=== PATIENT | female | born 1935 | race Caucasian/White ===

== ENCOUNTER → 2017-11-01 10:14 | Outpatient (BNVA) | payer MEDICARE, MEDICAID, SELFPAY | PROVIDERS: Visit Provider Student in an Organized Health Care Education/Training Program | DX: M17.12 Unilateral primary osteoarthritis, left knee (principal); M17.11 Unilateral primary osteoarthritis, right knee | CPT/HCPCS: 20610; 99213; J7325 ==

== ENCOUNTER → 2017-12-27 10:24 | Outpatient (BNVA) | payer MEDICARE, MEDICAID, SELFPAY | PROVIDERS: PCP Internal Medicine; Referring Provider Internal Medicine; Visit Provider Student in an Organized Health Care Education/Training Program | DX: M17.12 Unilateral primary osteoarthritis, left knee (principal) | CPT/HCPCS: 20610; 99213; J1040 ==

== ENCOUNTER → 2018-03-30 10:32 | Outpatient (BNVA) | payer MEDICARE, MEDICAID, SELFPAY | PROVIDERS: PCP Internal Medicine; Referring Provider Internal Medicine; Visit Provider Student in an Organized Health Care Education/Training Program | DX: M17.12 Unilateral primary osteoarthritis, left knee (principal); M17.11 Unilateral primary osteoarthritis, right knee | CPT/HCPCS: 99212; 99213 ==

== ENCOUNTER 2018-04-13 21:51 | Outpatient (REF) | payer MEDICARE, MEDICAID, SELFPAY ==
[2018-04-13 22:24] LABS: Bilirubin Negative (Negative); Blood Trace-intact (Negative); Clarity Clear; Glucose Negative (Negative); Ketones Negative (Negative); Leukocyte Esterase Small (Negative); Nitrite Positive (Negative); Urobilinogen 0.2 EU/dL (Up TO 0.2); pH 6.5 (5-8)
[2018-04-13 22:31] LABS: Bacteria Many HPF (Negative); C & S Indicated? C&S Done As Ordered; Casts Negative LPF (Negative); Crystals Negative HPF (Negative); Epithelial Cells Few HPF (Negative); Mucus Negative (Negative); RBC 0-2 (0-2); WBC >50 HPF (0-5)
== END 2018-04-13 22:11 ==
LOC: NCHCN 21:51
PROVIDERS: PCP Internal Medicine; Visit Provider Internal Medicine
DX: N39.0 Urinary tract infection, site not specified (principal)
CPT/HCPCS: 87077; 81003; 81015; 87086; 87186

== ENCOUNTER → 2018-06-25 10:30 | Outpatient (BNVA) | payer MEDICARE, MEDICAID, SELFPAY | PROVIDERS: PCP Internal Medicine; Referring Provider Internal Medicine; Visit Provider Student in an Organized Health Care Education/Training Program | DX: M17.11 Unilateral primary osteoarthritis, right knee (principal); M17.12 Unilateral primary osteoarthritis, left knee | CPT/HCPCS: 20610; 99212; 99213; J1040 ==

== ENCOUNTER 2018-10-23 15:37 | Outpatient (REF) | payer MEDICARE, MEDICAID, SELFPAY ==
[2018-10-23 22:18] LABS: Bilirubin Negative (Negative); Blood Trace-intact (Negative); Clarity Cloudy (Clear); Glucose Negative (Negative); Ketones Negative (Negative); Leukocyte Esterase Large (Negative); Nitrite Positive (Negative); Specific Gravity 1.015 (1.005-1.025); Urobilinogen 0.2 EU/dL (Up TO 0.2); pH 5.5 (5-8)
[2018-10-23 22:53] LABS: Bacteria Many HPF (Negative); Epithelial Cells Few HPF (Negative); Other Cells Negative (Negative); WBC >50 HPF (0-5)
[2018-10-23 22:54] LABS: C & S Indicated? Yes; Casts Negative LPF (Negative); Crystals Negative HPF (Negative); Mucus Negative (Negative)
== END 2018-10-23 15:57 ==
LOC: NCHCN 15:37
PROVIDERS: PCP Internal Medicine; Visit Provider Internal Medicine
DX: N39.0 Urinary tract infection, site not specified (principal)
CPT/HCPCS: 87077; 81003; 81015; 87086; 87186

== ENCOUNTER → 2018-11-29 11:17 | Outpatient (BNVA) | payer MEDICARE, MEDICAID, SELFPAY | PROVIDERS: PCP Internal Medicine; Referring Provider Internal Medicine; Visit Provider Student in an Organized Health Care Education/Training Program | DX: M17.11 Unilateral primary osteoarthritis, right knee (principal); M17.12 Unilateral primary osteoarthritis, left knee | CPT/HCPCS: 20610; 99213; J1040 ==

== ENCOUNTER 2019-02-26 09:16 | Emergency (ER) | payer MEDICARE, MEDICAID, SELFPAY ==
[2019-02-26] VITALS (42 sets, daily range): BP systolic 100–161; BP diastolic 48–142; PULSE 71–96; RESP 8–39; TEMP 37.7; O2SAT 89–98
--- NOTE | 2019-02-26 09:25 | ED.GENADUL_ITS ---
Discharge Plan Disposition Patient Disposition: HOME Condition: Improving Discharge Details Chief Complaint: SOB Clinical Impression: Acute bronchitis with bronchospasm Primary Care Provider: Aman Granado ED Provider: Michael Triplett Home Meds and New Rx's Prescriptions: New prednisone 20 mg tablet 40 mg PO DAILY 5 Days Qty: 10 RF: 0 amoxicillin-pot clavulanate 875-125 mg tablet 1 tab PO BID 10 Days Qty: 20 RF: 0 Continued ascorbic acid (vitamin C) [Vitamin C] 500 MG capsule, extended release 500 mg PO DAILY RF: 0 cranberry fruit 500 MG tablet,chewable 500 mg PO DAILY RF: 0 (DME) disposable gloves [Vinyl Gloves] 1 EACH misc 1 ea Topical PRN RF: 0 (DME) Aerochamber MV 1 EACH spacer 1 ea Miscellaneous DIRECTED RF: 0 torsemide 100 MG tablet 100 mg PO DAILY RF: 0 atorvastatin [Lipitor] 20 MG tablet 20 mg pe PO HS RF: 0 nitroglycerin [Nitrostat] 0.4 MG tablet, sublingual 1 tab Sublingual Q5MX3 PRNRF: 0 albuterol sulfate [Proventil HFA] 1 PUFF HFA aerosol inhaler 2 puff Inhalation Q4H PRNRF: 0 vitamin E 400 UNIT capsule 400 unit PO DAILY RF: 0 potassium chloride [Klor-Con M10] 10 MEQ tablet,ER particles/crystals 10 meq PO DAILY RF: 0 Eliquis 5 MG tablet 1 tab PO BID RF: 0 diltiazem HCl 120 MG capsule,extended release 24hr 120 mg PO DAILY Qty: 30 RF: 0 nystatin 15 GM cream 1 applic Topical BID RF: 0 Incruse Ellipta 1 PUFF blister with device 1 puff Inhalation DAILY RF: 0 acetaminophen [Tylenol] 325 MG tablet 650 mg PO BID PRNRF: 0 metoprolol succinate 50 MG tablet extended release 24 hr 75 mg PO DAILY RF: 0 albuterol sulfate 2.5 mg /3 mL (0.083 %) Solution For Nebulization .Q6 HOURS PRNRF: 0 Advair HFA 115-21 mcg/actuation Hfa Aerosol Inhaler 2 puff INHALATION BID RF: 0 Discharge Instructions Instructions: Acute Bronchitis (ED) Additional Instructions: Continue your regular medications. Take antibiotics as prescribed. Follow-up with regular doctor if not improving in 3 to 5 days time. Return to the emergency department for any acute concerns. Home to rest this afternoon. Medical Decision Making 83-year-old female presents from home. She lives alone in [place]. She has a number of chronic medical problems including oxygen dependent COPD, CHF, atrial fibrillation for which she is anticoagulated. She notes 3 days of cough, congestion, some production of green sputum with associated shortness of breath. No significant weight gain. She denies to me any chest pain. She has a temp of 37.7, pulse 88, blood pressure 136/103 initially. 96% sat on 3 L oxygen. Her lung sounds are quite diminished bilaterally. She describes an infectious process. Her differential diagnosis includes COPD exacerbation, influenza, bronchitis, pneumonia, must exclude CHF exacerbation. Patient had IV access established, given DuoNeb updraft, parenteral steroid, referred for EKG, laboratory testing, chest x-ray. Her CBC is reassuring, chemistries the BUN 25, creatinine 0.9, unremarkable electrolytes. Troponin is negative. BNP 2882, the patient's baseline is in the mid thousands, her range is from low 100s to greater than 10,000. Influenza negative. Chest x-ray: Lungs are predominantly clear with slight interstitial prominence, probably chronic. No pleural effusion seen. No focal consolidation. Following inhaled DuoNeb, parenteral steroids, patient weaned to normal levels of oxygen with saturations in the mid 90s. She ate a lunchtime meal. Repeat troponin was obtained and negative. Blood pressures improved to 129/48. I will treat her with oral antibiotics and a burst of systemic steroids for bronchitis with bronchospasm. Her caregiver and granddaughter understand homecare as well as indications for repeat evaluation. She is stable and improving. Lab Data Lab results reviewed: Yes I reviewed the patient's lab results. Labs: Laboratory Results - last 24 hr 02/26/19 02/26/19 02/26/19 10:05 10:05 10:05 WBC 8.68 RBC 4.95 Hgb 14.0 Hct 45.5 MCV 91.9 MCH 28.3 MCHC 30.8 L RDW 15.3 H Plt Count 227 MPV 10.7 Immature Gran % 0.6 Neutrophils % 72.4 Lymphocytes % 10.3 Monocytes % 10.4 Eosinophils % 5.4 Basophils % 0.9 Absolute Neutrophils 6.29 Absolute Lymphocytes 0.89 L Absolute Monocytes 0.90 H Absolute Eosinophils 0.47 Absolute Basophils 0.08 PT 11.5 H INR 1.1 Sodium 145 Potassium 4.0 Chloride 105 Carbon Dioxide 33.5 H Anion Gap 6.5 BUN 25 H Creatinine 0.90 Estimated GFR/1.73 m2 59.94 Glucose 140 H Calcium 9.4 Magnesium 2.1 Total Bilirubin 0.5 AST 19 ALT 16 Alkaline Phosphatase 82 Troponin I < 0.05 NT-Pro-B Natriuret Pep 2882 H Total Protein 7.1 Albumin 3.5 ECG Data Attestation: I personally reviewed and interpreted this ECG (s) as follows: Interpretation: Regular rhythm with a rate of 84, there is intraventricular conduction delay and a left bundle branch block pattern, electronically V paced, similar to that from April 12, 2017. HPI General Mode of arrival: EMS . Date/Time Provider Initiated Documentation: 02/26/19 09:25 . Limitations to Documentation: no limitations . Information obtained by: patient and EMS . History of Present Illness 83 year old F presents to the emergency department with the chief complaint of Cough, low-grade fever, congestion, shortness of breath, described as moderate, Quality is described as dull and constant, and is localized to the chest. Patient reports no radiation. Patient started experiencing this day(s) and it has been constant. No relieving factors improve symptom(s), No exacerbating factors reported . Patient notes cough, fever/chills and shortness of breath; denies chest pain, nausea/vomiting and syncope. Patient did receive the following treatments prior to arrival, other (On home oxygen.) Related Data Home Medications Medication Instructions Recorded Confirmed albuterol sulfate [Proventil HFA] 2 puff INHALATION Q4H PRN 12/23/14 02/26/19 atorvastatin [Lipitor] 20 mg pe PO HS 12/23/14 02/26/19 nitroglycerin [Nitrostat] 1 tab SUBLINGUAL Q5MX3 PRN 12/23/14 02/26/19 potassium chloride [Klor-Con M10] 10 meq PO DAILY 12/23/14 02/26/19 vitamin E 400 unit PO DAILY 12/23/14 02/26/19 Eliquis 1 tab PO BID 11/13/15 02/26/19 ascorbic acid (vitamin C) [Vitamin 500 mg PO DAILY 04/04/16 02/26/19 C] cranberry fruit 500 mg PO DAILY tab.chew 04/04/16 02/26/19 Incruse Ellipta 1 puff INHALATION DAILY 05/09/16 02/26/19 acetaminophen [Tylenol] 650 mg PO BID PRN 05/09/16 02/26/19 nystatin 1 applic TOPICAL BID 05/09/16 02/26/19 Aerochamber MV 05/11/16 11/29/18 disposable gloves [Vinyl Gloves] ea 05/11/16 11/29/18 diltiazem HCl 120 mg PO DAILY #30 capcr 03/26/17 02/26/19 metoprolol succinate 75 mg PO DAILY 04/12/17 02/26/19 torsemide 100 mg PO DAILY tab-cap 05/01/17 02/26/19 Advair HFA 2 puff INHALATION BID 02/26/19 02/26/19 albuterol sulfate .Q6 HOURS PRN 02/26/19 amoxicillin-pot clavulanate 1 tab PO BID 10 Days #20 tab 02/26/19 prednisone 40 mg PO DAILY 5 Days #10 tab 02/26/19 Previous Rx's Medication Instructions Recorded diltiazem HCl 120 mg PO DAILY #30 capcr 03/26/17 amoxicillin-pot clavulanate 1 tab PO BID 10 Days #20 tab 02/26/19 prednisone 40 mg PO DAILY 5 Days #10 tab 02/26/19 Allergies Allergy/AdvReac Type Severity Reaction Status Date / Time aspirin AdvReac Mild Unverified 02/26/19 09:25 erythromycin base AdvReac Mild Unverified 02/26/19 09:25 lisinopril AdvReac Mild Unverified 02/26/19 09:25 Review of Systems Narrative: Patient lives alone. She is on home oxygen of 2 L. She denies any significant new edema. No known sick contacts. Eating and drinking okay. 8 systems reviewed and otherwise negative [facility] Medical History (Updated 02/26/19 @ 09:35 by Michael Triplett MD) Atrial fibrillation (Acute) CHF (congestive heart failure) (Chronic) COPD (chronic obstructive pulmonary disease) (Chronic) Social History Smoking/Tobacco Use Status: Former Tobacco Use Drug use: Never Do you feel safe in your relationship?: Yes History History Para 2 Hx # Term Pregnancies Multiple births Hx # Pregnancies Ectopic pregnancies AB induced Hx Number of Living Children AB spontaneous Exam Narrative Exam Narrative: GEN: awake, alert, oriented 3. Pleasant, well groomed, interactive. HEAD: Normocephalic, atraumatic ENT: Mucous membranes moist, oropharynx unremarkable, External ear exam unremarkable EYES: PERRL, EOMI NECK: Full ROM, no AMANDA, no menigismus CHEST/RESP: Nontender, diminished and distant breath sounds bilaterally, question faint wheeze CARDIOVASCULAR: Distant heart sounds, regular at the time of my exam, no murmur, rub roel. 2+ Rad pulse bilateral ABDOMEN: Soft, nontender, no mass. +Bowel sounds EXT: Full ROM, minimal to trace pretibial edema, no rash Neuro: Grossly normal neurologic exam, conversant, interactive. Psych: Speech fluent, thoughts congruent, affect normal
[2019-02-26] MEDS: Albuterol/Ipratropium 3 ML UPD VIAL UPD (09:48)
[2019-02-26] MEDS: methylPREDNISolone SUCC 125 MG VIAL IVP (09:49)
[2019-02-26] MEDS: Normal Saline Flush 10 ML SYR IVP (09:49)
[2019-02-26 10:12] LABS: Abs Immature Grans 0.05 k/cumm (0.0-0.09); Absolute Basophil Count 0.08 k/cumm (0.0-0.2); Absolute Eosinophil Count 0.47 k/cumm (0.0-0.7); Absolute Lymphocyte Count 0.89 k/cumm (1.2-3.4); Absolute Neutrophil Count 6.29 k/cumm (1.2-6.7); Basophils % 0.9; Eosinophils % 5.4; HCT 45.5 % (36.0-46.0); Immature Grans % 0.6 %; Lymphocytes % 10.3; Mean Corp. HGB Concentration 30.8 g/dL (32.0-36.0); Mean Corpuscular Hemoglobin 28.3 pg (27.0-33.0); Mean Corpuscular Volume 91.9 fL (80-95); Mean Platelet Volume 10.7 fL (8.0-11.0); Monocytes % 10.4; Neutrophils % 72.4; Platelet Count 227 x1000/uL (130-400); RBC 4.95 m/cumm (4.00-5.20); RBC Distribution Width 15.3 % (11.7-14.6); White Blood Cell Count 8.68 k/cumm (4.4-10.8)
[2019-02-26 10:22] LABS: INR 1.1 (0.9-1.1); Prothrombin Time 11.5 sec (9.3-11.0)
--- NOTE | 2019-02-26 10:26 | DI.RAD_ITS ---
EXAM: XR CHEST 2V PA LATERAL CLINICAL HISTORY: cough, sob TECHNIQUE: COMPARISON: CHEST 2 VIEWS PA,LAT from 04/12/2017 FINDINGS: Heart is at the upper limits size. There is a transvenous cardiac pacemaker position. Lungs are pre dominantly clear with slight interstitial prominence, probably chronic. No pleural effusion seen. N o focal consolidation. IMPRESSION: No evidence of acute process.
[2019-02-26 10:35] LABS: ALT 16 U/L (14-59); AST 19 U/L (15-37); Albumin 3.5 g/dL (3.4-5.0); Alkaline Phosphatase 82 U/L (46-116); Anion Gap 6.5 mmol/L (3-11); BUN 25 mg/dL (7-18); Bilirubin, Total 0.5 mg/dL (0.2-1.0); CO2 33.5 mmol/L (21.0-32.0); Calcium 9.4 mg/dL (8.5-10.1); Chloride 105 mmol/L (98-107); Estimated GFR 59.94 (mL/min/1.73m2); Glucose 140 mg/dL (74-106); Magnesium 2.1 mg/dL (1.8-2.4); NT-proBNP 2882 pg/mL (<300); Sodium 145 mmol/L (136-145); Total Protein 7.1 g/dL (6.4-8.2)
[2019-02-26 10:37] LABS: Troponin I < 0.05 ng/Ml (<0.06)
[2019-02-26 11:02] LABS: Bilirubin Negative (Negative); Blood Negative (Negative); Clarity Clear (Clear); Glucose Negative (Negative); Ketones Negative (Negative); Leukocyte Esterase Negative (Negative); Nitrite Negative (Negative); Urobilinogen 0.2 EU/dL (Up TO 0.2)
[2019-02-26 13:22] LABS: Troponin I < 0.05 ng/Ml (<0.06)
[2019-02-26] MEDS: Amoxicillin 875/Clav. 125 TAB PO (13:44)
== END 2019-02-26 13:57 | disposition home or self-care (01) ==
PROVIDERS: Emergency Provider Emergency Medicine; PCP Internal Medicine
DX: J44.0 Chronic obstructive pulmonary disease with (acute) lower respiratory infection (principal); J20.9 Acute bronchitis, unspecified; Z99.81 Dependence on supplemental oxygen; Z87.891 Personal history of nicotine dependence
CPT/HCPCS: 36415; 51702; 80053; 87449; 93005; 94640; 96374; 99284; 71046; 81003; 83735; 83880; 84484; 85025; 85610; 93010; J2930; J7620

== ENCOUNTER 2019-06-24 17:10 | Outpatient (REF) | payer MEDICARE, MEDICAID, SELFPAY ==
[2019-06-24 21:29] LABS: BUN 27 mg/dL (7-18); CREATININE 1.14 mg/dL (0.55-1.02); Calcium 8.7 mg/dL (8.5-10.1); Chloride 101 mmol/L (98-107); Estimated GFR 45.52 (mL/min/1.73m2); Glucose 93 mg/dL (74-106); NT-proBNP 1625 pg/mL (<300); Potassium 3.7 mmol/L (3.5-5.1); Sodium 142 mmol/L (136-145)
[2019-06-24 22:41] LABS: HCT 45.8 % (36.0-46.0); Mean Corp. HGB Concentration 30.6 g/dL (32.0-36.0); Mean Corpuscular Hemoglobin 28.4 pg (27.0-33.0); Mean Corpuscular Volume 92.9 fL (80-95); Mean Platelet Volume 11.2 fL (8.0-11.0); Platelet Count 218 x1000/uL (130-400); RBC 4.93 m/cumm (4.00-5.20); White Blood Cell Count 8.91 k/cumm (4.4-10.8)
== END 2019-06-24 17:30 ==
LOC: NCHCN 17:10
PROVIDERS: PCP Internal Medicine; Visit Provider Internal Medicine
DX: R00.0 Tachycardia, unspecified (principal); R06.09 Other forms of dyspnea; G31.84 Mild cognitive impairment of uncertain or unknown etiology
CPT/HCPCS: 80048; 85027; 83880

== ENCOUNTER 2019-07-08 04:03 | Outpatient (CLI) | payer MEDICARE, MEDICAID, SELFPAY | END 2019-07-08 04:23 | PROVIDERS: PCP Internal Medicine; Visit Provider Internal Medicine | DX: R06.09 Other forms of dyspnea (principal) | CPT/HCPCS: 93225 ==

== ENCOUNTER 2019-07-08 10:22 | Outpatient (REF) | payer MEDICARE, MEDICAID, SELFPAY ==
[2019-07-08 11:36] LABS: Bilirubin Negative (Negative); Blood Negative (Negative); Clarity Cloudy (Clear); Glucose Negative (Negative); Ketones Negative (Negative); Leukocyte Esterase Large (Negative); Nitrite Positive (Negative); Urobilinogen 0.2 EU/dL (Up TO 0.2)
[2019-07-08 11:53] LABS: Bacteria Many HPF (Negative); C & S Indicated? Yes; WBC >50 HPF (0-5)
== END 2019-07-08 10:42 ==
LOC: NCHCN 10:22
PROVIDERS: PCP Internal Medicine; Visit Provider Internal Medicine
DX: R06.09 Other forms of dyspnea (principal); R00.0 Tachycardia, unspecified; G31.84 Mild cognitive impairment of uncertain or unknown etiology; R82.998 Other abnormal findings in urine
CPT/HCPCS: 87077; 81003; 81015; 87086; 87186

== ENCOUNTER 2019-07-11 08:46 | Outpatient (CLI) | payer MEDICARE, MEDICAID, SELFPAY ==
--- NOTE | 2019-07-11 11:38 | W.HOLTRPT ---
Date of service: 07/11/19 Time of Service: 11:38 Holter Monitor Report Holter Monitor Note: The patient was monitored for 2 days and 31 minutes, reportedly for dyspnea on exertion Rhythm throughout was sinus. Average heart rate was 83 bpm. Minimum heart rate was 80 bpm and maximum 108 There were very rare atrial premature beats There were occasional ventricular ectopic beats and couplets. There were several triplets. There was no nonsustained ventricular tachycardia There were no pauses. There was no bradycardia. There was no atrial fibrillation
== END 2019-07-11 09:06 ==
PROVIDERS: PCP Internal Medicine; Visit Provider Internal Medicine
DX: R06.09 Other forms of dyspnea (principal)
CPT/HCPCS: 93227; 93226

== ENCOUNTER → 2019-07-22 10:30 | Outpatient (BNVA) | payer MEDICARE, MEDICAID, SELFPAY | PROVIDERS: PCP Internal Medicine; Referring Provider Internal Medicine; Visit Provider Student in an Organized Health Care Education/Training Program | DX: M17.12 Unilateral primary osteoarthritis, left knee (principal); J44.9 Chronic obstructive pulmonary disease, unspecified; Z87.891 Personal history of nicotine dependence | CPT/HCPCS: 20610; 99213; J1040 ==

== ENCOUNTER 2019-07-23 00:08 | Outpatient (CLI) | payer MEDICARE, MEDICAID, SELFPAY ==
--- NOTE | 2019-07-23 10:30 | DI.US_ITS ---
APPROVED REPORT EXAM: Comprehensive 2D, Doppler, and color-flow Echocardiogram Patient Location: Out-Patient Employee Relations Representative: Beth Finch RDCS (AE) Indications: Exertional Dyspnea Other Information Study Quality: Fair Conclusion Left Ventricle : The left ventricle is normal size. The left ventricular systolic function is normal. The left ventricular ejection fraction is within the normal range. There is normal left ventricular wall thickness. There is normal LV segmental wall motion. Diastolic function is indeterminate. LVEF i s 45-50%. Right Ventricle : Right ventricle is not well visualized. Right ventricular systolic function could n ot be assessed. The RVSP is 22.7 mmHg. Atria : The left atrium size is normal. The right atrium size is normal. Mitral Valve : Severe mitral annular calcification. No evidence of mitral valve stenosis. Mild mitral regurgitation. Great Vessels : IVC is normal in size and collapses >50% with inspiration. See remainder of study for further details. Compared to echocardiogram from 05/10/2016: There is no significant change. Wall motion Left Ventricle The left ventricle is normal size. The left ventricular systolic function is normal. The left ventric ular ejection fraction is within the normal range. There is normal left ventricular wall thickness. T here is normal LV segmental wall motion. Diastolic function is indeterminate. There is no ventricular septal defect visualized. LVEF is 45-50%. Right Ventricle Right ventricle is not well visualized. Right ventricular systolic function could not be assessed. Th e RVSP is 22.7 mmHg. Pacemaker lead is present in the right ventricle. Atria The left atrium size is normal. The right atrium size is normal. The interatrial septum is intact wit h no evidence for an atrial septal defect. Aortic Valve The Aortic valve is sclerotic. There is no aortic valvular stenosis. Trace aortic regurgitation. Mitral Valve Severe mitral annular calcification. No evidence of mitral valve stenosis. Mild mitral regurgitation. Tricuspid Valve The tricuspid valve is normal in structure. There is no tricuspid valve stenosis. Trace tricuspid reg urgitation. Pulmonic Valve The pulmonary valve is normal in structure. There is no pulmonic valvular stenosis. There is no pulmo theresa valvular regurgitation. Great Vessels The aortic root is normal in size. The ascending aorta is normal in size. Aortic arch is not visualiz ed. IVC is normal in size and collapses >50% with inspiration. Pericardium There is no pericardial effusion. 2D Dimensions IVSD d PLAX 0.98 cm F: 0.6-1.0 LV Vol A2C d MOD 82.6 mL LVPW d PLAX 0.89 cm F: 0.6 - 1.0 LV Vol A4C d MOD 89.5 mL LVID d PLAX 4.92 cm F: 3.8 - 5.2 LA vol/ BSA A2C s A-L 29.1 mL/m2 LVDs 3.55 cm F: 2.2 - 3.5 LA vol/ BSA A4C s A-L 33.1 mL/m2 Ao Root d 2.57 cm F: 2.7 - 3.3 LA Vol/ BSA Biplane s A-L 33.0 mL/m2 RA Area A4C 19.77 cm2 LA Area A4C s MOD 21.08 cm2 RA Vol/ BSA A4C s A-L 31.7 mL/m2 LA Area A2C s MOD 18.58 cm2 Ao Asc Diam d 3.16 cm F: 2.3 - 3.1 LV EF A4C MOD 48.0 % LV EF Teichholz 52.8 % LV EF A2C MOD 46.2 % LVEF (Gonzalez's) 46.21 % F: 54 - 74 LV EF Biplane MOD 46.2 % LV Volume 67.31 mL F: 46 - 106 SV 40.02 mL LV Volume Index 37.39 mL/m2 F: 29 - 61 SV Index 22.18 mL/m2 LV Vol Biplane MOD 86.6 mL FS 27.20 % M-Mode TAPSE 1.56 cm (M/F) >1.7 LV Diastology MV E' medial 0.086 (>0.07 m/s) MV E Vmax 1.17 (0.4-1.3 m/s) LV E/e MED 13.60 (<14) MV E' lateral 0.099 (>0.1 m/s) LV E/e LAT 11.80 (<14) MV E/E' medial 13.64 MV E/E' lateral 11.83 Aortic Valve LVOT Area 3.06 cm2 AoV Area Vmax 1.81 cm2 LVOT Vmax 1.10 m/s AoV Area/ BSA (Vmax) 1.00 cm2/m2 LVOT Mean Ravi. 0.71 m/s JACK Mean Ravi. 1.61 cm2 LVOT Peak Grad 4.9 mmHg JACK Mean Ravi. Index 0.89 cm2/m2 LVOT Mean Grad 2.4 mmHg AR DT 2477 msec LVOT VTI 0.213 m AR PHT 718 msec LVOT Diam s 1.95 cm AoV Vmax 1.87 m/s Velocity Ratio 0.58 AoV Mean Ravi. 1.35 m/s AoV Peak Grad 14.0 mmHg LVOT SV 65.05 mL AoV Mean Grad 8.1 mmHg AoV VTI 0.381 m AoV Area VTI 1.71 cm2 AoV Area/ BSA (VTI) 0.95 cm/m2 Mitral Valve MV DT 293 (160-240 msec) MR Vmax 4.55 m/s MV PHT 85 msec MR VTI 1.499 m MV Area PHT 2.59 cm2 MR Peak Grad 82.7 mmHg MR Mean Grad 60.7 mmHg MR PISA Radius 0.55 cm MR EROA 0.15 cm2 MR Aliasing Velocity 0.35 m/s MR PISA 1.92 cm2 Pulmonary Valve PV Vmax 1.03 (0.5-1.5 m/s) RVOT Peak Gr. 3.81 mmHg PV Peak Grad 4.2 mmHg RVOT Mean Gr. 2.05 mmHg PV Mean Grad 2.5 mmHg RVOT VTI 0.191 m PV VTI 0.216 m RVOT Vmax 0.98 m/s Tricuspid Valve TR Peak Grad 19.7 mmHg TR Vmax 2.22 m/s RA Pressure 3.00 mmHg RVSP (TR) 22.7 mmHg
== END 2019-07-23 00:28 ==
PROVIDERS: PCP Internal Medicine; Visit Provider Internal Medicine
DX: R06.09 Other forms of dyspnea (principal); I47.1 Supraventricular tachycardia; I34.0 Nonrheumatic mitral (valve) insufficiency
CPT/HCPCS: 93306

== ENCOUNTER 2019-09-26 20:47 | Outpatient (REF) | payer MEDICARE, MEDICAID, SELFPAY ==
[2019-09-26 21:12] LABS: BUN 31 mg/dL (7-18); CREATININE 1.35 mg/dL (0.55-1.02); Calcium 9.5 mg/dL (8.5-10.1); Chloride 98 mmol/L (98-107); Estimated GFR 37.45 (mL/min/1.73m2); Glucose 112 mg/dL (74-106); Potassium 3.3 mmol/L (3.5-5.1); Sodium 142 mmol/L (136-145)
== END 2019-09-26 21:07 ==
LOC: NCHCN 20:47
PROVIDERS: PCP Internal Medicine; Visit Provider Internal Medicine
DX: I10 Essential (primary) hypertension (principal)
CPT/HCPCS: 80048

== ENCOUNTER → 2019-11-01 10:47 | Outpatient (BNVA) | payer MEDICARE, MEDICAID, SELFPAY | PROVIDERS: PCP Internal Medicine; Referring Provider Internal Medicine; Visit Provider Student in an Organized Health Care Education/Training Program | DX: M17.12 Unilateral primary osteoarthritis, left knee (principal); M17.11 Unilateral primary osteoarthritis, right knee; J44.9 Chronic obstructive pulmonary disease, unspecified; Z87.891 Personal history of nicotine dependence | CPT/HCPCS: 20610; 99213; J1040 ==

== ENCOUNTER 2020-01-14 23:38 | Outpatient (REF) | payer MEDICARE, MEDICAID, SELFPAY ==
[2020-01-17 16:07] LABS: COVID-19 RT-PCR Result NEGATIVE (Negative)
== END 2020-01-14 23:58 ==
LOC: NCHCN 23:38
PROVIDERS: PCP Internal Medicine; Visit Provider Internal Medicine
DX: Z20.828 Contact with and (suspected) exposure to other viral communicable diseases (principal)
CPT/HCPCS: U0003

== ENCOUNTER → 2020-01-24 10:25 | Outpatient (BNVA) | payer MEDICARE, MEDICAID, SELFPAY | PROVIDERS: PCP Internal Medicine; Visit Provider Student in an Organized Health Care Education/Training Program | DX: M17.12 Unilateral primary osteoarthritis, left knee (principal); M17.11 Unilateral primary osteoarthritis, right knee | CPT/HCPCS: 20610; 99212; J1040 ==

== ENCOUNTER 2020-03-31 12:55 | Outpatient (REF) | payer MEDICARE, MEDICAID, SELFPAY ==
[2020-03-31 13:27] LABS: HCT 41.6 % (36.0-46.0); HGB 12.7 g/dL (11.2-15.7); MCH 28.5 pg (27.0-33.0); MCHC 30.5 % (32.0-36.0); MCV 93.3 fL (80-95); MPV 10.9 fL (8.0-11.0); Platelet Count 247 10^3/uL (130-400); RBC 4.46 10^6/uL (3.93-5.22); RDW 14.3 % (11.7-14.6); RDW-SD 49.4 fL
[2020-03-31 13:44] LABS: Hemoglobin A1C 6.5 % (<5.7)
[2020-03-31 13:56] LABS: ALT 21 U/L (14-59); AST 20 U/L (15-37); Albumin 3.1 g/dL (3.4-5.0); Alkaline Phosphatase 74 U/L (46-116); Anion Gap 5.3 mmol/L (3-11); BUN 23 mg/dL (7-18); Bilirubin, Total 0.5 mg/dL (0.2-1.0); CO2 35.7 mmol/L (21.0-32.0); CREATININE 1.1 mg/dL (0.55-1.02); Calcium 8.9 mg/dL (8.5-10.1); Chloride 102 mmol/L (98-107); Estimated GFR 47.43 (mL/min/1.73m2); Glucose 101 mg/dL (74-106); Potassium 3.8 mmol/L (3.5-5.1); Sodium 143 mmol/L (136-145); TSH 1.68 uIU/mL (0.36-3.74); Total Protein 6.2 g/dL (6.4-8.2)
[2020-03-31 14:25] LABS: NT-proBNP 2039 pg/mL (<300)
== END 2020-03-31 12:56 | disposition home or self-care (01) ==
LOC: NCHCN 12:55
PROVIDERS: PCP Internal Medicine; Visit Provider Internal Medicine
DX: I10 Essential (primary) hypertension (principal); I25.10 Atherosclerotic heart disease of native coronary artery without angina pectoris; R06.09 Other forms of dyspnea; E11.9 Type 2 diabetes mellitus without complications; E66.9 Obesity, unspecified; R42 Dizziness and giddiness
CPT/HCPCS: 80053; 85027; 83036; 83880; 84443

== ENCOUNTER → 2020-04-13 10:29 | Outpatient (BNVA) | payer MEDICARE, MEDICAID, SELFPAY | PROVIDERS: PCP Internal Medicine; Visit Provider Student in an Organized Health Care Education/Training Program | DX: M17.12 Unilateral primary osteoarthritis, left knee (principal); M17.11 Unilateral primary osteoarthritis, right knee | CPT/HCPCS: 20610; J1040 ==

== ENCOUNTER 2020-05-01 12:02 | Outpatient (REF) | payer MEDICARE, MEDICAID, SELFPAY ==
[2020-05-01 21:15] LABS: Anion Gap 6.7 mmol/L (3-11); BUN 19 mg/dL (7-18); CO2 31.3 mmol/L (21.0-32.0); CREATININE 1.1 mg/dL (0.55-1.02); Chloride 100 mmol/L (98-107); Estimated GFR 47.43 (mL/min/1.73m2); Glucose 120 mg/dL (74-106); Potassium 4.2 mmol/L (3.5-5.1); Sodium 138 mmol/L (136-145)
== END 2020-05-01 12:03 | disposition home or self-care (01) ==
LOC: NCHCN 12:02
PROVIDERS: PCP Internal Medicine; Visit Provider Internal Medicine
DX: I10 Essential (primary) hypertension (principal)
CPT/HCPCS: 80048

== ENCOUNTER 2020-06-03 01:16 | Outpatient (CLI) | payer MEDICARE, MEDICAID, SELFPAY ==
--- NOTE | 2020-06-03 15:43 | DI.US_ITS ---
APPROVED REPORT EXAM: Comprehensive 2D, Doppler, and color-flow Echocardiogram Patient Location: Out-Patient Cream Gatherer: Beth Finch RDCS (AE) Indications: Atrial Fibrillation Other Information Study Quality: Fair. Technically limited study due to body habitus. Conclusion Left Ventricle : The left ventricle is normal size. Left ventricular systolic function is mildly decr eased. There is normal left ventricular wall thickness. LVEF is 46%. Right Ventricle : Right ventricle is grossly normal in size. Right ventricular systolic function is g rossly normal. The RVSP is 31.7 mmHg. Atria : The left atrium size is normal. The right atrium size is normal. Mitral Valve : Moderate mitral annular calcification. Mild to moderate mitral regurgitation. No evide nce of mitral valve stenosis. Great Vessels : The aortic root is normal in size. The ascending aorta is mildly dilated. IVC is norm al in size and collapses >50% with inspiration. Compared to study from 07/23/2019, there is no significant change. Wall motion Left Ventricle The left ventricle is normal size. Left ventricular systolic function is mildly decreased. There is n ormal left ventricular wall thickness. There is global hypokinesis of the left ventricle. There is no ventricular septal defect visualized. LVEF is 46%. Right Ventricle Right ventricle is grossly normal in size. Right ventricular systolic function is grossly normal. The RVSP is 31.7 mmHg. Pacemaker lead is present in the right ventricle. Atria The left atrium size is normal. The right atrium size is normal. The interatrial septum is intact wit h no evidence for an atrial septal defect. Aortic Valve The Aortic valve is sclerotic. Aortic valve is trileaflet. There is no aortic valvular stenosis. Trac e aortic regurgitation. Mitral Valve Moderate mitral annular calcification. No evidence of mitral valve stenosis. Mild to moderate mitral regurgitation. Tricuspid Valve The tricuspid valve is normal in structure. There is no tricuspid valve stenosis. Mild tricuspid regu rgitation. Pulmonic Valve The pulmonary valve is normal in structure. There is no pulmonic valvular stenosis. There is no pulmo theresa valvular regurgitation. Great Vessels The aortic root is normal in size. The ascending aorta is mildly dilated. IVC is normal in size and c ollapses >50% with inspiration. Pericardium There is no pericardial effusion. 2D Dimensions IVSD d PLAX 0.88 cm F: 0.6-1.0 LV Vol A2C d MOD 102.9 mL LVPW d PLAX 0.93 cm F: 0.6 - 1.0 LV Vol A4C d MOD 95.9 mL LVID d PLAX 4.90 cm F: 3.8 - 5.2 LA vol/ BSA A2C s A-L 27.5 mL/m2 LVDs 3.75 cm F: 2.2 - 3.5 LA vol/ BSA A4C s A-L 31.9 mL/m2 Ao Root d 2.54 cm F: 2.7 - 3.3 LA Vol/ BSA Biplane s A-L 31.3 mL/m2 Ao Asc Diam d 3.32 cm F: 2.3 - 3.1 LA Area A4C s MOD 21.52 cm2 LV EF Teichholz 46.6 % LA Area A2C s MOD 18.89 cm2 LVEF (Gonzalez's) 46.71 % F: 54 - 74 LV EF A4C MOD 46.2 % LV Volume 74.05 mL F: 46 - 106 LV EF A2C MOD 46.2 % LV Volume Index 34.76 mL/m2 F: 29 - 61 LV EF Biplane MOD 46.7 % LV Vol Biplane MOD 100.8 mL SV 47.10 mL FS 23.35 % SV Index 22.07 mL/m2 M-Mode TAPSE 1.43 cm (M/F) >1.7 LV Diastology MV E Vmax 1.13 (0.4-1.3 m/s) Aortic Valve LVOT Area 2.66 cm2 AoV Area Vmax 1.49 cm2 LVOT Vmax 1.03 m/s AoV Area/ BSA (Vmax) 0.70 cm2/m2 LVOT Mean Ravi. 0.72 m/s JACK Mean Ravi. 1.36 cm2 LVOT Peak Grad 4.3 mmHg JACK Mean Ravi. Index 0.64 cm2/m2 LVOT Mean Grad 2.4 mmHg AR DT 1972 msec LVOT VTI 0.234 m AR PHT 572 msec LVOT Diam s 1.80 cm AoV Vmax 1.83 m/s Velocity Ratio 0.56 AoV Mean Ravi. 1.41 m/s AoV Peak Grad 13.4 mmHg LVOT SV 62.11 mL AoV Mean Grad 8.7 mmHg AoV VTI 0.399 m AoV Area VTI 1.56 cm2 AoV Area/ BSA (VTI) 0.73 cm/m2 Mitral Valve MV DT 170 (160-240 msec) MV PHT 49 msec MV Area PHT 4.47 cm2 MV VTI 0.294 m MV Area VTI 2.11 (4.0-6.0 cm2) Pulmonary Valve PV Vmax 0.83 (0.5-1.5 m/s) RVOT Peak Gr. 2.03 mmHg PV Peak Grad 2.8 mmHg RVOT Mean Gr. 1.10 mmHg PV Mean Grad 1.5 mmHg RVOT VTI 0.130 m PV VTI 0.155 m RVOT Vmax 0.71 m/s Tricuspid Valve TR Peak Grad 28.6 mmHg TR Vmax 2.68 m/s RA Pressure 3.00 mmHg RVSP (TR) 31.7 mmHg
== END 2020-06-03 01:36 ==
PROVIDERS: PCP Internal Medicine; Visit Provider Internal Medicine
DX: I48.21 Permanent atrial fibrillation (principal); R93.3 Abnormal findings on diagnostic imaging of other parts of digestive tract; I08.1 Rheumatic disorders of both mitral and tricuspid valves; I77.810 Thoracic aortic ectasia
CPT/HCPCS: 93306

== ENCOUNTER → 2020-07-13 10:52 | Outpatient (BNVA) | payer MEDICARE, MEDICAID, SELFPAY | PROVIDERS: PCP Internal Medicine; Visit Provider Student in an Organized Health Care Education/Training Program | DX: M17.12 Unilateral primary osteoarthritis, left knee (principal); M17.11 Unilateral primary osteoarthritis, right knee | CPT/HCPCS: 20610; J1040; J7325 ==

== ENCOUNTER 2020-09-29 11:44 | Emergency (ER) | payer MEDICARE, MEDICAID, SELFPAY ==
[2020-09-29] VITALS (24 sets, daily range): BP systolic 136–165; BP diastolic 47–117; PULSE 62–128; RESP 18–37; TEMP 36.2–36.8; O2SAT 96–98
--- NOTE | 2020-09-29 11:45 | RT.EKG_ITS ---
APPROVED REPORT Exam: Resting ECG Reason for Exam: weakness Patient Location: E HR:80 bpm ECG Measurements Heart Rate 80 AXIS AK [id number] P [id number] QRSd 133 QRS 219 QT 426 T 69 QTc 491 Conclusion Nonspecific intraventricular conduction delay.. ST elevation secondary to IVCD...
--- NOTE | 2020-09-29 11:45 | DI.RAD_ITS ---
Exam(s) XR PORTABLE CHEST AP EXAM: XR PORTABLE CHEST AP CLINICAL HISTORY: fever TECHNIQUE: 2D digital imaging was performed. COMPARISON: CR PORTABLE CHEST ONE VIEW from 03/23/2017 CR PORTABLE CHEST ONE VIEW from 03/23/2017 CR XR CHEST 2V PA LATERAL from 02/26/2019 FINDINGS: Heart is enlarged, unchanged. The dual lead pacemaker is again noted. There low lying chronic inter stitial changes. Superimposed infiltrate, effusion pulmonary edema is seen. IMPRESSION: No acute pulmonary findings. DATA REPOSITORY: RADIATION DOSE DELIVERED:
[2020-09-29 12:28] LABS: Source Nasal/Nares
[2020-09-29] MEDS: Normal Saline 500 ML IV (12:47)
[2020-09-29 12:53] LABS: Lactate 1.6 mmol/L (0.6-1.4)
--- NOTE | 2020-09-29 12:59 | ED.GENADUL_ITS ---
Discharge Plan Disposition Patient Disposition: HOME Condition: Good Discharge Details Clinical Impression: UTI (urinary tract infection) Primary Care Provider: Aman Granado ED Provider: Shania Khan Home Meds and New Rx's Prescriptions: New cephalexin 500 mg capsule 500 mg PO Q6H 7 Days Qty: 28 RF: 0 Continued ascorbic acid (vitamin C) [Vitamin C] 500 MG capsule, extended release 500 mg PO DAILY RF: 0 cranberry fruit 500 MG tablet,chewable 500 mg PO DAILY RF: 0 (DME) disposable gloves [Vinyl Gloves] 1 EACH misc 1 ea Topical PRN RF: 0 (DME) Aerochamber MV 1 EACH spacer 1 ea Miscellaneous DIRECTED RF: 0 torsemide 100 mg tablet 100 mg PO DAILY RF: 0 atorvastatin [Lipitor] 20 MG tablet 20 mg pe PO HS RF: 0 nitroglycerin [Nitrostat] 0.4 MG tablet, sublingual 1 tab Sublingual Q5MX3 PRNRF: 0 albuterol sulfate [Proventil HFA] 1 PUFF HFA aerosol inhaler 2 puff Inhalation Q4H PRNRF: 0 vitamin E 400 UNIT capsule 400 unit PO DAILY RF: 0 potassium chloride [Klor-Con M10] 10 MEQ tablet,ER particles/crystals 10 meq PO DAILY RF: 0 Eliquis 5 MG tablet 1 tab PO BID RF: 0 diltiazem HCl 120 MG capsule,extended release 24hr 120 mg PO DAILY Qty: 30 RF: 0 nystatin 15 GM cream 1 applic Topical BID RF: 0 Incruse Ellipta 1 PUFF blister with device 1 puff Inhalation DAILY RF: 0 acetaminophen [Tylenol] 325 MG tablet 650 mg PO BID PRNRF: 0 metoprolol succinate 50 MG tablet extended release 24 hr 75 mg PO DAILY RF: 0 albuterol sulfate 2.5 mg /3 mL (0.083 %) Solution For Nebulization .Q6 HOURS PRNRF: 0 Advair HFA 115-21 mcg/actuation Hfa Aerosol Inhaler 2 puff INHALATION BID RF: 0 Discharge Instructions Instructions: Urinary Tract Infection in Women (ED) Additional Instructions: Take antibiotic as prescribed Yogurt daily while on antibiotic You have a urinary tract infection, should you have worsening weakness, confusion, or with any new or worsening symptoms please return to the emergency room for reevaluation Referrals: Aman Granado MD [Primary Care Provider] - Discharge Data Discharge Date/Time-TO BE ENTERED AT DEPARTURE: 09/29/20 15:29 Medical Decision Making Patient is alert, oriented, of decisional capacity She is afebrile and nontoxic She has a urine specimen that is positive for infection she likely contributing her symptoms, she had artifact in her EKG initially her heart rate is actually 8120 She does have a white count of 12.2 Her lactate is 1.6 which is essentially negative and patient is requesting discharge home, I do not think this is unreasonable at this time as she is a mbulatory at her baseline and alert and oriented Her granddaughter Roxanne is whom she resides with and feels comfortable being discharged and will be closely monitoring She is placed on Keflex She given low threshold to return with new or worsening complaints She stable at time of discharge home She will need close outpatient follow-up with primary care physician in 48 hours Chest x-ray is trending evidence of infiltrate per my interpretation discharge home with heart rate of 94, afebrile, and on baseline oxygenation status of 97% Afebrile in the emergency room Low suspicion for stone, patient has no discomfort and no gross hematuria Creatinine 1.3, not grossly changed from prior Medical Records Medical records reviewed: Yes I reviewed the patient's medical records. HPI Letter to patient General Mode of arrival: ambulatory . Date/Time Provider Initiated Documentation: 09/29/20 11:46 . Limitations to Documentation: no limitations . Information obtained by: patient Follow-up in the next right lower-midline. No Mahin 1 is like there is a little continuity of . HPI Narrative: This 85-year- old female with history of UTI, generalized weakness, hyperglycemia, chest pain, CHF, COPD, atrial fibrillation, anticoagulated on Eliquis presents with reports of acute onset of lightheadedness and reports of shaking which started approximately 10:00 this morning. She states she was seated watching television when her symptoms began. She states she felt weak. She denies any chest pain or shortness of breath. She states she has had a runny nose. She denies cough or sick contacts. Patient denies falls or injuries. Family member denies confusion or unilateral symptoms. Patient was able to ambulate after the ambulance reportedly. She denies any calf pain or swelling. She denies any falls or injuries. Denies nausea, vomiting, diarrhea. she denies any rashes or lesions. Related Data Home Medications Medication Instructions Recorded Confirmed albuterol sulfate [Proventil HFA] 2 puff INHALATION Q4H PRN 12/23/14 09/29/20 atorvastatin [Lipitor] 20 mg pe PO HS 12/23/14 09/29/20 nitroglycerin [Nitrostat] 1 tab SUBLINGUAL Q5MX3 PRN 12/23/14 07/13/20 potassium chloride [Klor-Con M10] 10 meq PO DAILY 12/23/14 09/29/20 vitamin E 400 unit PO DAILY 12/23/14 09/29/20 Eliquis 1 tab PO BID 11/13/15 09/29/20 ascorbic acid (vitamin C) [Vitamin 500 mg PO DAILY 04/04/16 09/29/20 C] cranberry fruit 500 mg PO DAILY tab.chew 04/04/16 09/29/20 Incruse Ellipta 1 puff INHALATION DAILY 05/09/16 07/13/20 acetaminophen [Tylenol] 650 mg PO BID PRN 05/09/16 07/13/20 nystatin 1 applic TOPICAL BID 05/09/16 07/13/20 Aerochamber MV 05/11/16 07/13/20 disposable gloves [Vinyl Gloves] ea 05/11/16 07/13/20 diltiazem HCl 120 mg PO DAILY #30 capcr 03/26/17 07/13/20 metoprolol succinate 75 mg PO DAILY 04/12/17 09/29/20 Advair HFA 2 puff INHALATION BID 02/26/19 07/13/20 albuterol sulfate .Q6 HOURS PRN 02/26/19 07/13/20 torsemide 100 mg tablet 100 mg PO DAILY tab-cap 04/13/20 09/29/20 cephalexin 500 mg PO Q6H 7 Days #28 cap 09/29/20 Previous Rx's Medication Instructions Recorded diltiazem HCl 120 mg PO DAILY #30 capcr 03/26/17 cephalexin 500 mg PO Q6H 7 Days #28 cap 09/29/20 Allergies Allergy/AdvReac Type Severity Reaction Status Date / Time aspirin AdvReac Mild Unverified 09/29/20 11:48 erythromycin base AdvReac Mild Unverified 09/29/20 11:48 lisinopril AdvReac Mild Unverified 09/29/20 11:48 General Stated Complaint: GenMedical KARLA: 3 Review of Systems All systems reviewed & are unremarkable except as noted in HPI and below PFSH Medical History (Updated 09/29/20 @ 14:42 by MICA Coronel) Atrial fibrillation CHF (congestive heart failure) COPD (chronic obstructive pulmonary disease) Social History Smoking/Tobacco Use Status: Former Tobacco Use Smoking risk assessment performed?: Yes Alcohol Intake: current Alcohol Intake frequency: holidays/special occasions only Drug use: Never Current gender identity: female Do you feel safe at home: Yes Do you feel safe in your relationship?: Yes History History Para 2 Hx # Term Pregnancies Multiple births Hx # Pregnancies Ectopic pregnancies AB induced Hx Number of Living Children AB spontaneous Exam Const General: cooperative, comfortable and no acute distress HENMT Other: moist mucous membranes Chest Chest: normal inspection of the chest Resp Effort & Inspection: normal respiratory effort Auscultation: clear to auscultation bilaterally Cardio Rate: regular rate Rhythm: regular rhythm GI Inspection: normal to inspection Other: Nontender, no CVA tenderness Skin General skin exam: no rashes or lesions noted Neuro General: patient alert and patient oriented x3 Cranial Nerves: CN's II-XI intact bilaterally and tongue midline Speech: speech normal Gait: normal gait Motor: strength 5/5 throughout Sensory Exam: no sensory deficits noted Other: Negative [id number], negative heel garcia, negative pronator drift Extrem Other: 1+ edema to bilateral lower extremities Psych Appearance: well kempt Course Vital Signs Vital signs: Vital Signs Temperature 36.6 C 09/29/20 11:39 Pulse 128 H 09/29/20 11:39 Respiratory Rate 09/29/20 11:39 Blood Pressure 158/69 H 09/29/20 11:39 Pulse Oximetry 97 09/29/20 11:39 Temperature 36.6 C 09/29/20 11:39 Temperature Source Skin 09/29/20 11:39 Pulse 128 H 09/29/20 11:39 Respiratory Rate 24 09/29/20 11:39 Respiratory Effort 09/29/20 11:55 Blood Pressure 158/69 H 09/29/20 11:39 Pulse Oximetry 97 09/29/20 11:39 Oxygen Delivery Method Nasal Cannula 09/29/20 11:39 Oxygen Flow Rate 2 09/29/20 11:39 Pain Level 0 09/29/20 11:39 Lab/Test Results Lab/Test Results: 09/29/20 12:45 Blood Blood Culture - Pending 09/29/20 11:48 Blood Blood Culture - Pending Laboratory Tests Range/Units 09/29/20 12:15 COVID-19 Source Nasal/Nares
[2020-09-29 13:02] LABS: Abs Immature Grans 0.06 10^3/uL (0.0-0.06); Absolute Eosinophil Count 0.02 10^3/uL (0.0-0.7); Absolute Lymphocyte Count 0.97 10^3/uL (1.2-3.4); Absolute Monocyte Count 1.29 10^3/uL (0.1-0.8); Basophils % 0.6; Eosinophils % 0.2; HCT 41.9 % (36.0-46.0); Immature Grans % 0.5; Lymphocytes % 7.9; MCH 28.5 pg (27.0-33.0); MCV 91.9 fL (80-95); MPV 10.4 fL (8.0-11.0); Monocytes % 10.5; Neutrophils % 80.3; Nucleated RBC 0 %; Platelet Count 239 10^3/uL (130-400); RBC 4.56 10^6/uL (3.93-5.22); RDW 14.6 % (11.7-14.6); RDW-SD 50.3 fL; WBC 12.31 10^3/uL (4.4-10.8)
[2020-09-29 13:03] LABS: Absolute Basophil Count 0.07 10^3/uL (0.0-0.2); Absolute Neutrophil Count 9.88 10^3/uL (1.2-6.7)
[2020-09-29 13:22] LABS: Troponin I < 0.05 ng/mL (<0.06)
[2020-09-29 13:39] LABS: COVID-19 PCR Negative (Negative)
[2020-09-29 13:45] LABS: Albumin 3.1 g/dL (3.4-5.0); Alkaline Phosphatase 77 U/L (46-116); BUN 29 mg/dL (7-18); Bilirubin, Total 0.6 mg/dL (0.2-1.0); CO2 36.1 mmol/L (21.0-32.0); CREATININE 1.3 mg/dL (0.55-1.02); Calcium 8.7 mg/dL (8.5-10.1); Chloride 99 mmol/L (98-107); Estimated GFR 39.02 (mL/min/1.73m2); Glucose 107 mg/dL (74-106); Potassium 3.8 mmol/L (3.5-5.1); Sodium 140 mmol/L (136-145); Total Protein 6.8 g/dL (6.4-8.2)
[2020-09-29 13:46] LABS: ALT 15 U/L (14-59); AST 20 U/L (15-37); Anion Gap 4.9 mmol/L (3-11)
[2020-09-29 14:11] LABS: Bilirubin Negative (Negative); Blood Negative (Negative); Clarity Sl Cloudy (Clear); Glucose Negative (Negative); Ketones Negative (Negative); Leukocyte Esterase Moderate (Negative); Nitrite Negative (Negative); Specific Gravity 1.015 (1.005-1.025); Urobilinogen 0.2 EU/dL (Up TO 0.2)
[2020-09-29 14:21] LABS: Bacteria Many HPF (Negative); Epithelial Cells Rare HPF (Negative); RBC Negative HPF (0-2); WBC >50 HPF (0-5)
[2020-09-29 14:22] LABS: C & S Indicated? Yes
[2020-09-29] MEDS: Cephalexin 500 MG CAP PO (14:46)
== END 2020-09-29 15:29 | disposition home or self-care (01) ==
PROVIDERS: Emergency Provider Physician Assistant; PCP Internal Medicine
DX: N39.0 Urinary tract infection, site not specified (principal); B96.20 Unspecified Escherichia coli [E. coli] as the cause of diseases classified elsewhere; R25.1 Tremor, unspecified; Z87.440 Personal history of urinary (tract) infections; Z03.818 Encounter for observation for suspected exposure to other biological agents ruled out
CPT/HCPCS: 36415; 51701; 80053; 87040; 87077; 87635; 93005; 96360; 99285; 71045; 81003; 81015; 83605; 84484; 85025; 87086; 87186; 93010

== ENCOUNTER → 2020-10-05 10:38 | Outpatient (BNVA) | payer MEDICARE, MEDICAID, SELFPAY | PROVIDERS: PCP Internal Medicine; Visit Provider Student in an Organized Health Care Education/Training Program | DX: M17.12 Unilateral primary osteoarthritis, left knee (principal); M17.11 Unilateral primary osteoarthritis, right knee | CPT/HCPCS: 20610; J1040 ==

== ENCOUNTER 2020-10-16 13:42 | Emergency (ER) | payer MEDICARE, MEDICAID, SELFPAY ==
[2020-10-16] VITALS (10 sets, daily range): BP systolic 154–169; BP diastolic 45–128; PULSE 59–85; RESP 19–25; TEMP 36.6; O2SAT 96–100
--- NOTE | 2020-10-16 13:45 | RT.EKG_ITS ---
APPROVED REPORT Exam: Resting ECG Reason for Exam: leg pain, htn Patient Location: E HR:73 bpm ECG Measurements Heart Rate 73 AXIS GA [id number] P [id number] QRSd 153 QRS -91 QT 470 T 89 QTc 519 Conclusion Afib/flut and V-paced complexes IVCD, similar to previous
--- NOTE | 2020-10-16 14:00 | DI.US_ITS ---
Exam(s) US LOWER EXTREMITY VENOUS RT EXAM: US LOWER EXTREMITY VENOUS RT CLINICAL HISTORY: RLE swelling. TECHNIQUE: Lower extremity venous ultrasound performed using grayscale, color-flow, and spectral Do ppler analysis. COMPARISON: No exams were available for comparison FINDINGS: The common femoral, femoral and popliteal veins demonstrate normal compressibility, augmentation, and color Doppler. The posterior tibial veins are patent. No saphenous vein thrombosis or other superfi cial venous thrombosis is seen. No hematoma or Ingram's cyst is seen. IMPRESSION: Negative lower extremity ultrasound. No evidence of DVT. DATA REPOSITORY:
--- NOTE | 2020-10-16 14:06 | ED.GENADUL_ITS ---
Discharge Plan Disposition Patient Disposition: HOME Condition: Stable Discharge Details Clinical Impression: Cellulitis of right lower extremity Primary Care Provider: Aman Granado ED Provider: Michael Triplett Home Meds and New Rx's Prescriptions: New cephalexin 500 mg capsule 500 mg PO TID 7 Days Qty: 21 RF: 0 Continued ascorbic acid (vitamin C) [Vitamin C] 500 MG capsule, extended release 500 mg PO DAILY RF: 0 cranberry fruit 500 MG tablet,chewable 500 mg PO DAILY RF: 0 (DME) disposable gloves [Vinyl Gloves] 1 EACH misc 1 ea Topical PRN RF: 0 (DME) Aerochamber MV 1 EACH spacer 1 ea Miscellaneous DIRECTED RF: 0 torsemide 100 mg tablet 100 mg PO DAILY RF: 0 atorvastatin [Lipitor] 20 MG tablet 20 mg pe PO HS RF: 0 nitroglycerin [Nitrostat] 0.4 MG tablet, sublingual 1 tab Sublingual Q5MX3 PRNRF: 0 albuterol sulfate [Proventil HFA] 1 PUFF HFA aerosol inhaler 2 puff Inhalation Q4H PRNRF: 0 vitamin E 400 UNIT capsule 400 unit PO DAILY RF: 0 potassium chloride [Klor-Con M10] 10 MEQ tablet,ER particles/crystals 10 meq PO DAILY RF: 0 Eliquis 5 MG tablet 1 tab PO BID RF: 0 diltiazem HCl 120 MG capsule,extended release 24hr 120 mg PO DAILY Qty: 30 RF: 0 nystatin 15 GM cream 1 applic Topical BID RF: 0 Incruse Ellipta 1 PUFF blister with device 1 puff Inhalation DAILY RF: 0 acetaminophen [Tylenol] 325 MG tablet 650 mg PO BID PRNRF: 0 metoprolol succinate 50 MG tablet extended release 24 hr 75 mg PO DAILY RF: 0 albuterol sulfate 2.5 mg /3 mL (0.083 %) Solution For Nebulization .Q6 HOURS PRNRF: 0 Advair HFA 115-21 mcg/actuation Hfa Aerosol Inhaler 2 puff INHALATION BID RF: 0 Discharge Instructions Instructions: Cellulitis (ED) Additional Instructions: As we discussed, your ultrasound did not show evidence of blood clot or other significant abnormality. You have a developing cellulitis of the right lower extremity. Elevate the leg above the level of the heart to reduce swelling. Take antibiotics as prescribed. Your first dose was given in ER and next dose should be this evening. Continue your routine medications. We will ask our care managers to arrange a follow-up for you in approximately 1 week in clinic for recheck with your primary care physician. Return to the emergency department for any acute concerns. Medical Decision Making This is an 85-year-old female presents from home with right lower extremity sw elling and mild discomfort over 1 days time. She is not had chest pain or shortness of breath. She does have a history of underlying A. fib and is anticoagulated with Eliquis. She arrives to ER blood pressure 168/68 with known hypertension, pulse 75, afebrile, oxygenation of 100%. Her right lower extremity reveals some mild edema as well as warmth and erythema around the ankle. Differential diagnosis includes cellulitis, superficial thrombophlebitis, deep vein thrombosis. No evidence of cardiac or pulmonary process. Basic laboratories obtained patient referred for ultrasound of the right lower extremity. There is no evidence of DVT or other acute abnormality on exam. Labs labs noted some chronic renal insufficiency which is somewhat improved today over baseline. White blood cell count was recently elevated and persistently so today at 12.3 with slight left shift. Given the objective findings in conjunction with my exam findings I do feel the patient is developing a right lower extremity cellulitis. There is no evidence of thrombus. I will place her on a course of Keflex. She will elevate the leg at home. We will ask care management to arrange a follow-up for her in clinic to ensure resolution. Lab Data Lab results reviewed: Yes I reviewed the patient's lab results. Labs: Laboratory Results - last 24 hr 10/16/20 10/16/20 14:24 14:24 WBC 12.37 H RBC 4.14 Hgb 11.7 Hct 38.9 MCV 94.0 MCH 28.3 MCHC 30.1 L RDW 14.8 H Plt Count 293 MPV 10.1 Immature Gran % 0.8 Neutrophils % 76.3 Lymphocytes % 10.0 Monocytes % 11.2 Eosinophils % 1.2 Basophils % 0.5 Nucleated RBC % 0 Absolute Neutrophils 9.44 H Absolute Lymphocytes 1.24 Absolute Monocytes 1.39 H Absolute Eosinophils 0.15 Absolute Basophils 0.06 Sodium 141 Potassium 3.6 Chloride 102 Carbon Dioxide 36.2 H Anion Gap 2.8 L BUN 24 H Creatinine 1.1 H Estimated GFR/1.73 m2 47.32 Glucose 123 H Calcium 9.0 Total Bilirubin 0.3 AST 19 ALT 18 Alkaline Phosphatase 106 Total Protein 7.0 Albumin 2.7 L HPI General Mode of arrival: EMS . Date/Time Provider Initiated Documentation: 10/16/20 14:05 . Limitations to Documentation: no limitations . Information obtained by: patient and EMS . History of Present Illness 85 year old F presents to the emergency department with the chief complaint of Right l eg swelling, noticed today, no chest pain or shortness of breath, described as moderate, Quality is described as dull, and is localized to the right and lower extremity. Patient reports no radiation. Patient started experiencing this hour(s) and it has been constant. No relieving factors improve symptom(s), No exacerbating factors reported . Patient notes denies chest pain, fever/chills, shortness of breath and syncope. Patient did receive the following treatments prior to arrival, none Related Data Home Medications Medication Instructions Recorded Confirmed albuterol sulfate [Proventil HFA] 2 puff INHALATION Q4H PRN 12/23/14 10/05/20 atorvastatin [Lipitor] 20 mg pe PO HS 12/23/14 10/05/20 nitroglycerin [Nitrostat] 1 tab SUBLINGUAL Q5MX3 PRN 12/23/14 10/05/20 potassium chloride [Klor-Con M10] 10 meq PO DAILY 12/23/14 10/05/20 vitamin E 400 unit PO DAILY 12/23/14 10/05/20 Eliquis 1 tab PO BID 11/13/15 10/05/20 ascorbic acid (vitamin C) [Vitamin 500 mg PO DAILY 04/04/16 10/05/20 C] cranberry fruit 500 mg PO DAILY tab.chew 04/04/16 10/05/20 Incruse Ellipta 1 puff INHALATION DAILY 05/09/16 10/05/20 acetaminophen [Tylenol] 650 mg PO BID PRN 05/09/16 10/05/20 nystatin 1 applic TOPICAL BID 05/09/16 10/05/20 Aerochamber MV 05/11/16 10/05/20 disposable gloves [Vinyl Gloves] ea 05/11/16 10/05/20 diltiazem HCl 120 mg PO DAILY #30 capcr 03/26/17 10/05/20 metoprolol succinate 75 mg PO DAILY 04/12/17 10/05/20 Advair HFA 2 puff INHALATION BID 02/26/19 10/05/20 albuterol sulfate .Q6 HOURS PRN 02/26/19 10/05/20 torsemide 100 mg tablet 100 mg PO DAILY tab-cap 04/13/20 10/05/20 cephalexin 500 mg PO TID 7 Days #21 cap 10/16/20 Previous Rx's Medication Instructions Recorded diltiazem HCl 120 mg PO DAILY #30 capcr 03/26/17 cephalexin 500 mg PO TID 7 Days #21 cap 10/16/20 Allergies Allergy/AdvReac Type Severity Reaction Status Date / Time aspirin AdvReac Mild Unverified 10/05/20 10:43 erythromycin base AdvReac Mild Unverified 10/05/20 10:43 lisinopril AdvReac Mild Unverified 10/05/20 10:43 General Stated Complaint: Vascular KARLA: 3 Review of Systems Narrative: Denies chest pain or swelling. No fall or injury. No noted fever or chills, no injury to the leg. 7 systems reviewed and otherwise negative [facility] Medical History (Updated 10/16/20 @ 14:51 by Michael Triplett MD) Atrial fibrillation CHF (congestive heart failure) COPD (chronic obstructive pulmonary disease) Social History Smoking/Tobacco Use Status: Former Tobacco Use Smoking risk assessment performed?: Yes Alcohol Intake: current Alcohol Intake frequency: holidays/special occasions only Drug use: Never Current gender identity: female Do you feel safe at home: Yes Do you feel safe in your relationship?: Yes History History Para 2 Hx # Term Pregnancies Multiple births Hx # Pregnancies Ectopic pregnancies AB induced Hx Number of Living Children AB spontaneous Exam Narrative Exam Narrative: GEN: awake, alert, oriented 3. Pleasant, well groomed, interactive. HEAD: Normocephalic, atraumatic EYES: PERRL, EOMI NECK: Full ROM, no AMANDA, no menigismus CHEST/RESP: Nontender, clear to auscultation bilateral, no wheeze/rhonchi/rales CARDIOVASCULAR: RRR, soft approximately 2 out of 6 systolic ejection murmur at left upper sternal border. 2+ Rad pulse bilateral ABDOMEN: Soft, nontender, no mass. +Bowel sounds EXT: Full ROM, right lower extremity edematous, graded 1+, the ankle and foot have warmth and erythema present, no significant abrasion appreciated. Palpable DP bilaterally. Neuro: Grossly normal neurologic exam, conversant, interactive. Psych: Speech fluent, thoughts congruent, affect normal Course Vital Signs Vital signs: Vital Signs Temperature 36.6 C 10/16/20 13:42 Pulse 75 10/16/20 13:42 Respiratory Rate 24 10/16/20 13:42 Blood Pressure 168/68 H 10/16/20 13:42 Pulse Oximetry 100 10/16/20 13:42 Temperature 36.6 C 10/16/20 13:42 Temperature Source Skin 10/16/20 13:42 Pulse 75 10/16/20 13:42 Respiratory Rate 24 10/16/20 13:42 Blood Pressure 168/68 H 10/16/20 13:42 Blood Pressure Position Supine 10/16/20 13:42 Pulse Oximetry 100 10/16/20 13:42 Oxygen Delivery Method Nasal Cannula 10/16/20 13:42 Oxygen Flow Rate 3 10/16/20 13:42 Pain Level 0 10/16/20 13:42
[2020-10-16 14:29] LABS: Absolute Basophil Count 0.06 10^3/uL (0.0-0.2); Absolute Eosinophil Count 0.15 10^3/uL (0.0-0.7); Absolute Lymphocyte Count 1.24 10^3/uL (1.2-3.4); Absolute Neutrophil Count 9.44 10^3/uL (1.2-6.7); Basophils % 0.5; Eosinophils % 1.2; HCT 38.9 % (36.0-46.0); HGB 11.7 g/dL (11.2-15.7); Immature Grans % 0.8; MCH 28.3 pg (27.0-33.0); MCHC 30.1 % (32.0-36.0); MPV 10.1 fL (8.0-11.0); Monocytes % 11.2; Neutrophils % 76.3; Nucleated RBC 0 %; Platelet Count 293 10^3/uL (130-400); RBC 4.14 10^6/uL (3.93-5.22); RDW 14.8 % (11.7-14.6); RDW-SD 51.5 fL; WBC 12.37 10^3/uL (4.4-10.8)
[2020-10-16 14:37] LABS: Absolute Monocyte Count 1.39 10^3/uL (0.1-0.8)
[2020-10-16 14:44] LABS: ALT 18 U/L (14-59); AST 19 U/L (15-37); Albumin 2.7 g/dL (3.4-5.0); Alkaline Phosphatase 106 U/L (46-116); Anion Gap 2.8 mmol/L (3-11); BUN 24 mg/dL (7-18); Bilirubin, Total 0.3 mg/dL (0.2-1.0); CO2 36.2 mmol/L (21.0-32.0); CREATININE 1.1 mg/dL (0.55-1.02); Chloride 102 mmol/L (98-107); Estimated GFR 47.32 (mL/min/1.73m2); Glucose 123 mg/dL (74-106); Potassium 3.6 mmol/L (3.5-5.1); Sodium 141 mmol/L (136-145)
[2020-10-16] MEDS: Cephalexin 500 MG CAP PO (15:11)
--- NOTE | 2020-10-16 19:12 | NUR.NOTE ---
Referral faxed to [facility] Dr. Granado to f/u 1week for R leg cellulitis.Nursing Note:
== END 2020-10-16 15:49 | disposition home or self-care (01) ==
PROVIDERS: Emergency Provider Emergency Medicine; PCP Internal Medicine
DX: L03.115 Cellulitis of right lower limb (principal)
CPT/HCPCS: 36415; 80053; 93005; 99284; 85025; 93010; 93971

== ENCOUNTER 2020-12-01 13:14 | Outpatient (REF) | payer MEDICARE, MEDICAID, SELFPAY ==
[2020-12-01 15:00] LABS: HCT 36.4 % (36.0-46.0); HGB 10.6 g/dL (11.2-15.7); MCH 26.8 pg (27.0-33.0); MCHC 29.1 % (32.0-36.0); MCV 91.9 fL (80-95); Platelet Count 332 10^3/uL (130-400); RBC 3.96 10^6/uL (3.93-5.22); RDW 14.8 % (11.7-14.6); RDW-SD 50.2 fL; WBC 9.52 10^3/uL (4.4-10.8)
[2020-12-01 19:38] LABS: ALT 17 U/L (14-59); AST 18 U/L (15-37); Albumin 3.1 g/dL (3.4-5.0); Alkaline Phosphatase 94 U/L (46-116); Anion Gap 6.5 mmol/L (3-11); BUN 31 mg/dL (7-18); Bilirubin, Total 0.3 mg/dL (0.2-1.0); CO2 35.5 mmol/L (21.0-32.0); CREATININE 1.2 mg/dL (0.55-1.02); Calcium 8.9 mg/dL (8.5-10.1); Chloride 104 mmol/L (98-107); Glucose 116 mg/dL (74-106); NT-proBNP 2015 pg/mL (<300); Potassium 4.1 mmol/L (3.5-5.1); Sodium 146 mmol/L (136-145); Total Protein 6.7 g/dL (6.4-8.2)
== END 2020-12-01 13:15 | disposition home or self-care (01) ==
LOC: NCHCN 13:14
PROVIDERS: PCP Internal Medicine; Visit Provider Internal Medicine
DX: N39.0 Urinary tract infection, site not specified (principal); R53.81 Other malaise; R11.0 Nausea; R06.09 Other forms of dyspnea; E11.9 Type 2 diabetes mellitus without complications; F32.9 Major depressive disorder, single episode, unspecified
CPT/HCPCS: 80053; 85027; 87077; 83880; 87086; 87186

== ENCOUNTER 2020-12-21 15:26 | Outpatient (REF) | payer MEDICARE, MEDICAID, SELFPAY ==
[2020-12-21 21:06] LABS: Anion Gap 8.4 mmol/L (3-11); BUN 36 mg/dL (7-18); CO2 33.6 mmol/L (21.0-32.0); CREATININE 1.5 mg/dL (0.55-1.02); Calcium 9.1 mg/dL (8.5-10.1); Chloride 105 mmol/L (98-107); Estimated GFR 33.08 (mL/min/1.73m2); Glucose 62 mg/dL (74-106); Potassium 4.3 mmol/L (3.5-5.1); Sodium 147 mmol/L (136-145)
== END 2020-12-21 15:27 | disposition home or self-care (01) ==
LOC: NCHCN 15:26
PROVIDERS: PCP Internal Medicine; Visit Provider Internal Medicine
DX: I50.22 Chronic systolic (congestive) heart failure (principal)
CPT/HCPCS: 80048

== ENCOUNTER 2021-01-04 12:24 | Outpatient (REF) | payer MEDICARE, MEDICAID, SELFPAY ==
[2021-01-04 16:40] LABS: Anion Gap 8.1 mmol/L (3-11); BUN 36 mg/dL (7-18); CO2 29.9 mmol/L (21.0-32.0); CREATININE 1.5 mg/dL (0.55-1.02); Chloride 104 mmol/L (98-107); Estimated GFR 33.08 (mL/min/1.73m2); Glucose 101 mg/dL (74-106); Potassium 4.3 mmol/L (3.5-5.1); Sodium 142 mmol/L (136-145)
== END 2021-01-04 12:25 | disposition home or self-care (01) ==
LOC: NCHCN 12:24
PROVIDERS: PCP Internal Medicine; Visit Provider Internal Medicine
DX: R63.4 Abnormal weight loss (principal); R53.81 Other malaise; I50.22 Chronic systolic (congestive) heart failure
CPT/HCPCS: 80048

== ENCOUNTER 2021-01-04 12:36 | Outpatient (CLI) | payer MEDICARE, MEDICAID, SELFPAY ==
--- NOTE | 2021-01-04 | DI.RAD_ITS ---
Exam(s) XR RIBS LT W PA LAT CHEST EXAM: XR RIBS LT W PA LAT CHEST CLINICAL HISTORY: PLEURITIC CHEST PAIN R07.81. TECHNIQUE: 2D digital imaging was performed. COMPARISON: CR XR PORTABLE CHEST AP from 09/29/2020 FINDINGS: There fractures of the left 6th and 7th ribs which appear to be healed-nonacute. No compression frac tures evident. Bipolar left subclavian pacemaker lead tips in RA and RV again noted. No pulmonary e veronica. In the opposite-right lung there is pleural based density related to the 6 rib. Not previously prese nt. IMPRESSION: Healed left rib fractures. Rib based density on the opposite-right side 6 rib Cardiomegaly. Bipolar left subclavian pacemaker. No pulmonary edema. Recommend follow-up CT scan. DATA REPOSITORY: RADIATION DOSE DELIVERED:
== END 2021-01-04 12:56 ==
PROVIDERS: PCP Internal Medicine; Visit Provider Internal Medicine
DX: R07.81 Pleurodynia (principal); Z87.828 Personal history of other (healed) physical injury and trauma
CPT/HCPCS: 71046; 71100

== ENCOUNTER → 2021-01-11 10:31 | Outpatient (BNVA) | payer MEDICARE, MEDICAID, SELFPAY | PROVIDERS: PCP Internal Medicine; Visit Provider Student in an Organized Health Care Education/Training Program | DX: M17.12 Unilateral primary osteoarthritis, left knee (principal); M17.11 Unilateral primary osteoarthritis, right knee | CPT/HCPCS: 20610; J1040 ==

== ENCOUNTER 2021-01-15 00:34 | Outpatient (CLI) | payer MEDICARE, MEDICAID, SELFPAY ==
--- NOTE | 2021-01-15 13:00 | DI.CT_ITS ---
Exam(s) CT CHEST WO EXAM: CT CHEST WO CLINICAL HISTORY: ABNL CXR R91.8 PLEURITIC CHEST PAIN R07.81. TECHNIQUE: Imaging protocol: Axial computed tomography images were obtained and coronal and sagittal reformatted images were created and reviewed. COMPARISON: CT ABD PELVIS WITH CONTRAST from 03/12/2012 FINDINGS: The examination is limited due to patient motion artifact. Tracheobronchial tree: Patent where visualized. Pulmonary parenchyma: No consolidation or dominant measurable mass. No architectural distortion. Ther e are several noncalcified pulmonary nodules present. The largest is in the right middle lobe measur es 1 cm. Mediastinum and Debra: No dominant adenopathy or fluid collection. There is a small hiatal hernia. Th e esophagus is otherwise unremarkable. Thyroid gland: Unremarkable. Pleura: No effusion or pneumothorax. Heart: The heart is not dilated. Coronary artery calcifications are present. No pericardial effusion . Dual lead pacing device is in place. Aorta: Thoracic aorta non-dilated. Atherosclerosis. Upper abdomen: Unremarkable. Lymph nodes: Within normal limits. Soft tissues: Unremarkable. Bones:Within normal limits for the patient's age. IMPRESSION: 1. Multiple pulmonary nodules. The largest measures 1 cm. This nodule can be seen on the CT scan of the abdomen and pelvis from 03/12/2012 and is unchanged. In high risk patients (history of smoking or other risk factors), consider CT scan of the chest in 6-12 months for comparison. 2. No acute pulmonary process. RADIATION DOSE DELIVERED: 513.99mGy.cm Total DLP 513.99mGy.cm Total DLP DATA REPOSITORY: All CT scans at this facility are submitted to the National Radiology Data Registry (NRDR) Dose Index Registry (DIR) with the [employer] [place] [employer] ([employer]). RADIATION OPTIMIZATION: All CT scans at this facility use at least one of these dose optimization te chniques: automated exposure control; mA and/or kV adjustment per patient size (includes targeted exa ms where dose is matched to clinical indication); or iterative reconstruction.
== END 2021-01-15 00:54 ==
PROVIDERS: PCP Internal Medicine; Visit Provider Internal Medicine
DX: R07.81 Pleurodynia (principal); R91.8 Other nonspecific abnormal finding of lung field
CPT/HCPCS: 71250

== ENCOUNTER 2021-03-01 01:40 | Outpatient (CLI) | payer MEDICARE, MEDICAID, SELFPAY ==
--- NOTE | 2021-03-01 | DI.CT_ITS ---
Exam(s) CT ABDOMEN PELVIS W EXAM: CT ABDOMEN PELVIS W CLINICAL HISTORY: UNEXPLAINED WT LOSS, R63.4. TECHNIQUE: Imaging Protocol: Axial computed tomography images with coronal and sagittal reformatted images were created and reviewed CONTRAST MATERIAL: Intravenous: Omnipaque 50cc(reduced dose) Oral: Yes. Oral contrast was administered for bowel opacification. COMPARISON: CT ABD PELVIS WITH CONTRAST from 03/12/2012 FINDINGS: VISUALIZED LUNG BASES: There is a 9 x 6 millimeter nodule in the right lung base seen on the uppermos t image of this study.. This may be benign, given that it is only slightly increased in size when co mpared to 2013. Another smaller 3 millimeter nodule noted in the right lower lobe which is unchanged from 2013. No pleural effusions. There is cardiomegaly and pacemaker wires. No pericardial effusion. Coronary artery calcification i s evident ABDOMEN: There is no ascites. LIVER: There are few small benign hepatic cysts noted, the largest of these measures 8 millimeters. There is also an enhancing subcapsular benign-appearing finding in the right hepatic lobe measuring 8 millimeters which is probably a hemangioma. GALLBLADDER/BILIARY: No gallstones. No gallbladder wall edema. CBD is not dilated. PANCREAS: No evidence of pancreatic mass nor dilatation of the pancreatic duct. SPLEEN: Spleen is not enlarged. No obvious intrasplenic lesions. Splenic and portal veins are paten t. ADRENALS: There is thickening of both adrenal glands KIDNEYS:Right kidney is mildly atrophic. It contains a small 7 millimeters cyst anteriorly. Also po ssible calculus in lower pole calyx versus contrast puddling at this level. The opposite-left kidney exhibits normal size. No hydronephrosis on either side. Ureters in the pelvis are not dilated. Ur eterovesical junctions appear unremarkable. Urinary bladder unremarkable.. ABDOMINAL AORTA: The abdominal aorta is heavily calcified but not significantly dilated. Same is luda e of the common iliac arteries as well as the external iliac arteries. In addition, there is heavy c alcification-calcified plaque both at the origin and beyond the origin of the superior mesenteric art bakari for a distance of at least 6 cm, indicating significant atherosclerosis of this vessel. There ar e no edematous appearing bowel loops at this time. Similar calcification is not seen in the celiac a rtery. Small bowel loops exhibit normal diameters and without significant edema. LYMPH NODES:There is no retroperitoneal nor paraaortic adenopathy. ABDOMINAL WALL: There is anterior abdominal wall midline subumbilical hernia. Previously present lef t rectus abdominus muscle hematoma is no longer seen. However, there does appear to be a herniated s mall bowel loop into the hernia sac but no distinct transition point at this level. GI: There is no evidence of bowel obstruction, free air, nor abscess. PELVIS: GI: No evidence of appendicitis.There is extensive sigmoid diverticulosis. However, there is no evid ence of obvious acute diverticulitis. LYMPH NODES: There is no intrapelvic nor inguinal adenopathy. REPRODUCTIVE: Uterus is surgically absent. No abnormal adnexal masses. No free fluid. URINARY BLADDER: No calculi nor obvious masses evident OSSEOUS: No significant osseous lesions. IMPRESSION: 1. Compared to the prior CT scan of 2013 the abdominal aorta is again noted be heavily calcified-athe rosclerotic and there has been increase in amount of calcified plaque extending into the 1st 6-7 cm o f the SMA artery. Probably significant atherosclerotic involvement of this vessel. However, there a re no edematous appearing bowel loops at this time. Common and external iliac arteries are also heav brittni calcified. No aneurysms in these vessels evident. 2. Right lung base nodule as described above however, probably benign given that it exhibits minimal change from 2013. 3. There is thickening of both adrenal glands, consistent with hyperplasia. 4. Right kidney has become somewhat atrophic when compared to 2013. 5. Small anterior abdominal wall hernia which contains a loop of non edematous small bowel. There d oes not appear to be a transition point at this level. No obvious bowel obstruction. 6. Extensive sigmoid diverticulosis. No obvious acute diverticulitis RADIATION DOSE DELIVERED: 949.49mGy.cm Total DLP DATA REPOSITORY: All CT scans at this facility are submitted to the National Radiology Data Registry (NRDR) Dose Index Registry (DIR) with the [employer] ([employer]). RADIATION OPTIMIZATION: All CT scans at this facility use at least one of these dose optimization te chniques: automated exposure control; mA and/or kV adjustment per patient size (includes targeted exa ms where dose is matched to clinical indication); or iterative reconstruction.
[2021-03-01] MEDS: Breeza Beverage 473 ML BTL PO (13:45)
[2021-03-01 14:09] LABS: CREATININE 1.6 mg/dL (0.55-1.02); Estimated GFR 30.71 (mL/min/1.73m2)
[2021-03-01] MEDS: Omnipaque 350 MG/ML 100 ML BTL IJ (14:56)
[2021-03-01] MEDS: Omnipaque 350 MG/ML 50 ML BTL PO (14:57)
== END 2021-03-01 02:00 ==
PROVIDERS: PCP Internal Medicine; Visit Provider Internal Medicine
DX: R63.4 Abnormal weight loss (principal); Z01.812 Encounter for preprocedural laboratory examination; R91.8 Other nonspecific abnormal finding of lung field; I51.7 Cardiomegaly; Z95.0 Presence of cardiac pacemaker; K76.89 Other specified diseases of liver; N28.1 Cyst of kidney, acquired; I70.0 Atherosclerosis of aorta; K43.9 Ventral hernia without obstruction or gangrene; K57.30 Diverticulosis of large intestine without perforation or abscess without bleeding
CPT/HCPCS: 74177; 82565; J3490; Q9967

== ENCOUNTER 2021-03-30 17:25 | Outpatient (REF) | payer MEDICARE, MEDICAID, SELFPAY ==
[2021-03-30 16:55] LABS: Anion Gap 7.4 mmol/L (3-11); BUN 44 mg/dL (7-18); CO2 32.6 mmol/L (21.0-32.0); Calcium 8.9 mg/dL (8.5-10.1); Chloride 100 mmol/L (98-107); Estimated GFR 23.74 (mL/min/1.73m2); Glucose 81 mg/dL (74-106); Potassium 4.4 mmol/L (3.5-5.1); Sodium 140 mmol/L (136-145)
== END 2021-03-30 17:26 | disposition home or self-care (01) ==
LOC: NCHCN 17:25
PROVIDERS: PCP Internal Medicine; Visit Provider Internal Medicine
DX: I50.22 Chronic systolic (congestive) heart failure (principal)
CPT/HCPCS: 80048

== ENCOUNTER → 2021-04-12 10:56 | Outpatient (BNVA) | payer MEDICARE, MEDICAID, SELFPAY | PROVIDERS: PCP Internal Medicine; Visit Provider Student in an Organized Health Care Education/Training Program | DX: M17.11 Unilateral primary osteoarthritis, right knee (principal); M17.12 Unilateral primary osteoarthritis, left knee | CPT/HCPCS: 20610; 99213; J1040 ==

== ENCOUNTER 2021-04-27 18:48 | Emergency (ER) | payer MEDICARE, MEDICAID, SELFPAY ==
--- NOTE | 2021-04-27 18:45 | DI.CT_ITS ---
Exam(s) CT HEAD CERVICAL SPINE WO EXAM: CT HEAD CERVICAL SPINE WO CLINICAL HISTORY: fall backward. TECHNIQUE: Imaging Protocol: Axial computed tomography images with coronal and sagittal reformatted images were created and reviewed COMPARISON: CT HEAD WITHOUT CONTRAST from 04/25/2016 FINDINGS: BRAIN: There are no skull fractures nor fluid in the visualized paranasal sinuses. There is no evidence of intracranial hemorrhage, mass effect, or shift of midline structures. There are no extra-axial fluid collections. The ventricles are not enlarged or shifted and there is no blo od within the ventricular system nor within the basal cisterns. There is bilateral periventricular hypodensity consistent with chronic small vessel disease. No acut e infarct evident. Midline falx lipoma is noted. CERVICAL SPINE: There is no evidence of fracture nor listhesis. No significant prevertebral soft tissue swelling. Multilevel disc space narrowing, most evident at C5-6. Multilevel facet arthropathy. There is no significant facet joint malalignment. No significant osseous lesions evident. IMPRESSION: No acute intracranial findings on this noninfused CT scan of the brain.Chronic small-vessel white mat ter ischemic changes again noted. No evidence of cervical spine fracture, malalignment, nor acute compromise of the cervical spinal can al. RADIATION DOSE DELIVERED: 1,081.77mGy.cm Total DLP DATA REPOSITORY: All CT scans at this facility are submitted to the National Radiology Data Registry (NRDR) Dose Index Registry (DIR) with the [employer] ([employer]). RADIATION OPTIMIZATION: All CT scans at this facility use at least one of these dose optimization te chniques: automated exposure control; mA and/or kV adjustment per patient size (includes targeted exa ms where dose is matched to clinical indication); or iterative reconstruction.
[2021-04-27 18:52] VITALS: BP 155/76; PULSE 71; RESP 15; TEMP 36.4; O2SAT 95
--- NOTE | 2021-04-27 19:01 | W.ED.GENAD ---
Discharge Plan Disposition Patient Disposition: HOME Condition: Stable Discharge Details Clinical Impression: Fall, Head injury Primary Care Provider: Aman Granado ED Provider: Bethanie Gray Home Meds and New Rx's Prescriptions: Continued ascorbic acid (vitamin C) [Vitamin C] 500 MG capsule, extended release 500 mg PO DAILY 0RF cranberry fruit 500 MG tablet,chewable 500 mg PO DAILY 0RF (DME) disposable gloves [Vinyl Gloves] 1 EACH misc 1 ea Topical PRN 0RF (DME) Aerochamber MV 1 EACH spacer 1 ea Miscellaneous DIRECTED 0RF torsemide 100 mg tablet 100 mg PO DAILY 0RF Label Comments: 04/13/20-PT STATES CURRENT DOSE IS 100MG DAILY, THEN 50MG DAILY, ALTERNATING EACH DAY--VIVIANA WOLFE bisacodyl [Dulcolax (bisacodyl)] 10 mg suppository 10 mg OR DAILY PRN0RF Entresto 24-26 mg tablet 1 tab PO BID 0RF metoprolol succinate 25 mg tablet extended release 24 hr 50 mg PO DAILY 0RF atorvastatin [Lipitor] 20 MG tablet 20 mg pe PO HS 0RF nitroglycerin [Nitrostat] 0.4 MG tablet, sublingual 1 tab Sublingual Q5MX3 PRN0RF Label Comments: pt states she has not used in a while 11/13/15 albuterol sulfate [Proventil HFA] 1 PUFF HFA aerosol inhaler 2 puff Inhalation Q4H PRN0RF vitamin E 400 UNIT capsule 400 unit PO DAILY 0RF potassium chloride [Klor-Con M10] 10 MEQ tablet,ER particles/crystals 10 meq PO DAILY 0RF Eliquis 5 MG tablet 0.5 tab PO BID 0RF diltiazem HCl 120 MG capsule,extended release 24hr 120 mg PO DAILY Qty: 30 0RF nystatin 15 GM cream 1 applic Topical BID 0RF Incruse Ellipta 1 PUFF blister with device 1 puff Inhalation DAILY 0RF acetaminophen [Tylenol] 325 MG tablet 650 mg PO BID PRN0RF Label Comments: 05/01/17 taking 1000 mg Twice a day. ERIC albuterol sulfate 2.5 mg /3 mL (0.083 %) Solution For Nebulization .Q6 HOURS PRN0RF Advair HFA 115-21 mcg/actuation Hfa Aerosol Inhaler 2 puff INHALATION BID 0RF Discharge Instructions Instructions: Head Injury (ED) Additional Instructions: Your imaging and exam are reassuring here today. I am relieved to know that your step is getting fixed so you no longer have this hazard. Please try to remove any hazards such as rugs and may trip over to help prevent falls in the future. Please continue with your medications as previous scribe. If you develop recurrent nausea/vomiting, fever/chills, increased headache, visual changes or other new/worsening symptoms please seek care urgently with plan. Please follow-up with your primary care in the next 1 to 2 weeks for reevaluation. Referrals: Aman Granado MD [Primary Care Provider] - Discharge Data Discharge Date/Time-TO BE ENTERED AT DEPARTURE: 04/27/21 21:41 Medical Decision Making Patient is a pleasant 85-year-old female brought in via EMS for chief complaint of fall. Patient describes mechanical fall this evening. She states that she was on her way to the restroom when she stepped up on one step, states that this is broken and wobbly causing her to fall backwards. She states that she initially landed on her bottom but then fell back and hit her head on her recliner and then a carpeted floor denies any loss of consciousness. Currently denies any headache. However, patient is anticoagulated. States that she did take her dose of Eliquis this morning. EMS reports that the patient did have pain over C7 with flexion of the neck and collar was applied. They also report that patient did become nauseous when laying flat. He states that she could become nauseous but is not actively nauseated at this time. Denies any visual changes. Denies pain elsewhere. On exam, patient appears nontoxic. She does have some discomfort with palpation over the posterior aspect of her head but is not appreciate any objective evidence of skull fracture. She has no midline cervical spine pain, no midline tenderness along thoracic or lumbar spine. No pain with compression of chest wall, abdomen pelvis. Sensation is intact in all extremities, able to move all of her extremities with equal strength. Cranial nerves intact. Concerned that the patient is anticoagulated for potential intracranial bleed. She did have pain with flexion per EMS, also considered cervical spine fracture. Will obtain CT imaging of head and neck. Shortly after I evaluated patient, nursing staff reported she became nauseated and vomited x1. Patient given 4 mg of Zofran. She declined any analgesics. FINDINGS: Brain: Normal. No hemorrhage. Unremarkable white matter. No mass effect. Cerebral ventricles: No ventriculomegaly. Paranasal sinuses: Visualized sinuses are unremarkable. No fluid levels. Mastoid air cells: Visualized mastoid air cells are well aerated. Bones/joints: Unremarkable. No acute fracture. Soft tissues: Unremarkable. IMPRESSION: No acute intracranial abnormality. FINDINGS: Bones/joints: No acute fracture. Normal alignment. Discs/Spinal canal/Neural foramina: There are multilevel degenerative changes most prominent at C4-C5 with bilateral neural foraminal narrowing. No significant spinal canal stenosis. Lungs: Lung apices are normal. Soft tissues: Unremarkable. IMPRESSION: No acute fracture. Multilevel degenerative changes as described. Discussed these findings with the patient. Patient no longer has any midline tenderness with palpation or with range of motion. Spoke with patient's daughter, Beatriz [phone] at patient's request. 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 Patient is requesting discharge at this time, feels significantly improved. Patient discharged home in the care of her daughter. We did discuss return precautions. Advise close follow-up with primary care for reevaluation. All of her questions and concerns were addressed and she is in agreement this plan. [facility] General Date/Time Provider Initiated Documentation: 04/27/21 18:54. Limitations to Documentation: no limitations. Information obtained by: patient, family (spoke with daughter on the phone), EMS and RN notes reviewed. History of Present Illness 85 year old F presents to the emergency department with the chief complaint of fall off of wobbly stair, struck head, described as mild, with intensity rated at 1. Quality is described as aching, and is localized to the head. Patient reports no radiation. Patient started experiencing this minute(s) and it has been now resolved (denies pain currently). improves with No relieving factors improve symptom(s), No exacerbating factors reported . Patient notes headaches (mild) and nausea/vomiting (nausea, no vomiting); denies confusion, chest pain, rash, shortness of breath and syncope. Patient did receive the following treatments prior to arrival, none Related Data Home Medications Medication Instructions Recorded Confirmed albuterol sulfate 90 mcg/actuation 2 puff INHALATION Q4H PRN 11/17/15 03/07/22 aerosol inhaler (Proventil HFA) atorvastatin 20 mg tablet (Lipitor) 20 mg pe PO HS 12/23/14 04/12/21 nitroglycerin 0.4 mg sublingual 1 tab SUBLINGUAL Q5MX3 PRN 12/23/14 04/12/21 tablet (Nitrostat) potassium chloride 10 mEq 10 meq PO DAILY 12/23/14 04/12/21 tablet,extended release(part/cryst) (Klor-Con M) vitamin E 400 unit capsule 400 unit PO DAILY 12/23/14 04/12/21 apixaban 5 mg tablet (Eliquis) 0.5 tab PO BID 11/13/15 04/12/21 ascorbic acid (vitamin C) 500 mg 500 mg PO DAILY 04/04/16 04/12/21 capsule,extended release (Vitamin C) cranberry fruit 500 mg chewable 500 mg PO DAILY tab.chew 04/04/16 04/12/21 tablet acetaminophen 325 mg tablet 650 mg PO BID PRN 05/09/16 04/12/21 (Tylenol) nystatin 100,000 unit/gram topical 1 applic TOPICAL BID 05/09/16 04/12/21 cream umeclidinium 62.5 mcg/actuation 1 puff INHALATION DAILY 05/09/16 04/12/21 blister powder for inhalation (Incruse Ellipta) disposable gloves (Vinyl Gloves) ea 05/11/16 04/12/21 inhalational spacing device 05/11/16 04/12/21 (Aerochamber MV) diltiazem HCl 120 mg 120 mg PO DAILY #30 capcr 03/26/17 04/12/21 capsule,extended release 24 hr albuterol sulfate .Q6 HOURS PRN 02/26/19 04/12/21 fluticasone propionate 115 2 puff INHALATION BID 02/26/19 04/12/21 mcg-salmeterol 21 mcg/actuation HFA inhaler (Advair HFA) torsemide 100 mg tablet 100 mg PO DAILY tab-cap 04/13/20 04/12/21 bisacodyl 10 mg rectal suppository 10 mg OR DAILY PRN 01/12/21 04/12/21 (Dulcolax (bisacodyl)) metoprolol succinate 25 mg 50 mg PO DAILY 01/12/21 04/12/21 tablet,extended release 24 hr sacubitril 24 mg-valsartan 26 mg 1 tab PO BID 01/12/21 04/12/21 tablet (Entresto) Previous Rx's Medication Instructions Recorded diltiazem HCl 120 mg 120 mg PO DAILY #30 capcr 03/26/17 capsule,extended release 24 hr Allergies Allergy/AdvReac Type Severity Reaction Status Date / Time aspirin AdvReac Mild Unverified 04/27/21 18:59 erythromycin base AdvReac Mild Unverified 04/27/21 18:59 lisinopril AdvReac Mild Unverified 04/27/21 18:59 General Stated Complaint: HeadInjury KARLA: 3 Review of Systems Constitutional Constitutional: Reports as per HPI, Reports headache(s) and Denies weakness Eyes Eyes: Reports as per HPI, Denies blurry vision, Denies change in vision and Denies loss of vision ENT Ears, Nose, Mouth, and Throat: Denies abnormal hearing and Reports headache(s) Cardiovascular Cardiovascular: Reports as per HPI, Denies chest pain and Denies dyspnea Respiratory Respiratory: Reports as per HPI, Denies cough, Denies pain on inspiration, Denies pain with cough and Denies dyspnea Gastrointestinal Gastrointestinal: Reports as per HPI, Denies abdominal pain, Reports nausea and Denies vomiting Genitourinary Genitourinary: Reports as per HPI (states she urinated after fall b/c she was on her way to the bathroom) and Denies urinary incontinence Musculoskeletal Musculoskeletal: Reports as per HPI Integumentary/Breasts Skin/Breast: Reports as per HPI and Denies rash Neurologic Neurologic: Reports as per HPI, Denies abnormal hearing, Denies abnormal movements, Denies abnormal speech, Reports headache(s), Denies lack of coordination, Denies localized weakness, Denies loss of vision, Denies seizure-like activity, Denies paresthesias and Denies weakness PFSH All Active Problems (Updated 04/27/21 @ 20:48 by MICA De Jesus) Fall (Acute) Head injury (Acute) Cellulitis of right lower extremity (Acute) Atrial fibrillation (Acute) COPD (chronic obstructive pulmonary disease) (Chronic) CHF (congestive heart failure) (Chronic) Primary osteoarthritis of right knee (Acute 05/01/17) Steroid injection: 04/12/21; 07/13/2020; 04/13/2020; 11/29/18; 06/25/2018; 05/01/17; 11/02/16; 04/04/16 Primary osteoarthritis of left knee (Acute 08/13/15) Steroid injection: 04/12/21; 04/13/2020; 11/29/18; 06/25/2018; 12/27/17; 08/21/17; 05/01/17; 11/02/16; 04/04/16; 08/13/15 Synvisc injection: 07/13/2020; 11/01/17 UTI (urinary tract infection) (Acute) Generalized weakness (Acute) Dehydration (Acute) Hyperglycemia (Acute) Chest pain (Acute) COPD exacerbation (Acute) Hypokalemia (Acute) Constipation (Acute) Social History Smoking/Tobacco Use Status: Former Tobacco Use Smoking risk assessment performed?: Yes Alcohol Intake: current Alcohol Intake frequency: holidays/special occasions only Alcohol type: beer Drug use: Never Substance use type: does not use Current gender identity: female Do you feel safe at home: Yes Do you feel safe in your relationship?: Yes History History Para 2 Hx # Term Pregnancies Multiple births Hx # Pregnancies Ectopic pregnancies AB induced Hx Number of Living Children AB spontaneous Exam Const General: cooperative, healthy appearing, comfortable, no acute distress, well developed and well groomed Nutritional Appearance: average body habitus and well nourished Orientation: alert, awake and oriented x3 HENMT Head: normal to inspection, no palpable skull fracture, normocephalic and atraumatic Ears: hearing grossly normal bilaterally, external ears normal and TM's normal bilaterally General nose exam: external nose normal Mouth: oral mucosae normal, lip normal and tongue normal Throat: posterior oropharynx normal Eyes General: appearance normal, both eyes and all related structures Visual Angel: normal visual angel by confrontation Alignment and Position: alignment normal Periorbital: periorbital findings normal Eyelids: eyelids normal Conjunctivae: conjunctivae normal Pupils: PERRL EOM: EOM intact bilaterally Neck Neck: normal visual inspection, limited ROM (patient in a collar), trachea midline and supple Chest Chest: normal inspection of the chest, normal palpation of entire chest wall, no crepitus and no localized rib tenderness Resp Effort & Inspection: normal respiratory effort, able to speak in complete sentences and no respiratory distress Auscultation: clear to auscultation bilaterally, no rales, no rhonchi and no wheezes Cardio Rate: regular rate Rhythm: regular rhythm Heart Sounds: S1 normal and S2 normal GI Inspection: normal to inspection, no abdominal wall ecchymosis, no edema and non-distended Palpation: soft, no hepatosplenomegaly, not firm, no guarding, no pulsatile masses, not rigid and nontender Auscultation: normal bowel sounds Back/Spine/Pelvis Back: no CVA tenderness Cervical Spine: normal cervical lordosis and cervical ROM normal Thoracic/Lumbar Spine: thoracic and lumbar spine normal to inspection, thoraco-lumbar ROM normal, No thoraco-lumbar ROM limited, No thoraco-lumbar spasm and No thoracic spinal tenderness Pelvis: no pain with anterior-posterior compression and no pain with lateral compression Skin General skin exam: no rashes or lesions noted Lesions: no lesions Rashes: no rashes Trauma: no lacerations or abrasions Wounds: no wounds Neuro General: patient alert, patient awake, patient oriented x3, tone normal and moves all extremities Cranial Nerves: CN's II-XI intact bilaterally Cognition: normal cognition Speech: speech normal Motor: muscle tone normal throughout and strength 5/5 throughout Sensory Exam: no sensory deficits noted (no saddle paresthesias) Extrem General: normal to inspection, full ROM, capillary refill normal, no pedal edema and no calf tenderness Psych Appearance: grossly normal and well kempt Mental Status: mental status grossly normal Speech and Movement: speech and movement normal Course Vital Signs Vital signs: Vital Signs Temperature 36.4 C L 04/27/21 18:52 Pulse 71 04/27/21 18:52 Respiratory Rate 15 04/27/21 18:52 Blood Pressure 155/76 H 04/27/21 18:52 Pulse Oximetry 95 04/27/21 18:52 Temperature 36.4 C L 04/27/21 18:52 Temperature Source Temporal Artery Scan 04/27/21 18:52 Pulse 71 04/27/21 18:52 Respiratory Rate 15 04/27/21 18:52 Respiratory Effort Non-Labored 04/27/21 18:56 Blood Pressure 155/76 H 04/27/21 18:52 Blood Pressure Position Sitting 04/27/21 18:52 Pulse Oximetry 95 04/27/21 18:52 Oxygen Delivery Method Room Air 04/27/21 18:52 Oxygen Flow Rate 0 04/27/21 18:52 Pain Level 1 04/27/21 18:52 PAWSS Have you Been Recently Intoxicated or Drunk Within the Last 30 days?: No Have you Ever Experienced Previous Episodes of Alcohol Withdrawal?: No Have you ever Experienced Withdrawal Seizures?: No Have you ever Experienced Delirium Tremens(DT)s?: No Have you ever undergone Alcohol Rehabilitation Treatment (i.e, inpt ot outpatient treatment programs)?: No Have you ever Experienced Blackouts?: No Have you ever Combined Alcohol with other Downers within the last 90 days?: No Have you ever Combined Alcohol with any other Substance of Abuse during the last 90 days?: No Positive Blood Alcohol level on Presentation? [PCS.BAL]: No Evidence of Increased Autonomic Activity (i.e. HR>120, tremor, sweating, agitation, nausea)?: No Result: 0
[2021-04-27 19:17] LABS: HCT 43.3 % (36.0-46.0); HGB 13.3 g/dL (11.2-15.7); MCH 28.2 pg (27.0-33.0); MCHC 30.7 % (32.0-36.0); MCV 91.7 fL (80-95); Platelet Count 254 10^3/uL (130-400); RBC 4.72 10^6/uL (3.93-5.22); RDW-SD 54.7 fL; WBC 12.12 10^3/uL (4.4-10.8)
[2021-04-27] MEDS: Normal Saline 1,000 ML 150 ML IV (19:25)
[2021-04-27] MEDS: Ondansetron 4 MG/2 ML VIAL IVP (19:29)
[2021-04-27 19:39] LABS: ALT 20 U/L (14-59); AST 19 U/L (15-37); Albumin 3.5 g/dL (3.4-5.0); Alkaline Phosphatase 78 U/L (46-116); BUN 48 mg/dL (7-18); Bilirubin, Total 0.4 mg/dL (0.2-1.0); CREATININE 1.5 mg/dL (0.55-1.02); Calcium 8.9 mg/dL (8.5-10.1); Chloride 102 mmol/L (98-107); Estimated GFR 33.08 (mL/min/1.73m2); Glucose 148 mg/dL (74-106); Potassium 3.5 mmol/L (3.5-5.1); Sodium 138 mmol/L (136-145); Total Protein 7.5 g/dL (6.4-8.2)
[2021-04-27 19:42] LABS: PTT Activated 23.9 sec (21.0-27.5); Prothrombin Time 10.1 sec (9.3-11.0)
--- NOTE | 2021-04-27 19:57 | NUR.NOTE ---
Diana Henderson phone [phone] Note:
--- NOTE | 2021-04-27 20:36 | DI.VRAD_ITS ---
PROCEDURE INFORMATION: Exam: CT Head Without Contrast Exam date and time: 04/27/2021 7:45 PM Age: 85 years old Clinical indication: Fall backward; Patient HX: Fall on blood thinners TECHNIQUE: Imaging protocol: Computed tomography of the head without contrast. Other contrast: fall backward; COMPARISON: 1. CT HEAD WITHOUT CONTRAST 04/25/2016 2:[address] CHEST WO 01/15/2021 1:10 PM FINDINGS: Brain: There is no acute intracranial hemorrhage, mass effect or midline shift. No large acute territorial infarct identified. There are patchy regions of hypodensity in the periventricular and subcortical white matter, likely on the basis of chronic microvascular ischemic disease. Cerebral ventricles: The ventricles and sulci are prominent in size, which is at least in part due to global cerebral volume loss. Paranasal sinuses: Visualized sinuses are unremarkable. No fluid levels. Mastoid air cells: Visualized mastoid air cells are well aerated. Bones/joints: Unremarkable. No acute fracture. Soft tissues: Unremarkable. IMPRESSION: No acute intracranial hemorrhage, mass effect or midline shift. PROCEDURE INFORMATION: Exam: CT Cervical Spine Without Contrast Exam date and time: 04/27/2021 7:45 PM Age: 85 years old Clinical indication: Fall backward; Patient HX: Fall on blood thinners TECHNIQUE: Imaging protocol: Computed tomography images of the cervical spine without contrast. Radiation optimization: All CT scans at this facility use at least one of these dose optimization techniques: automated exposure control; mA and/or kV adjustment per patient size (includes targeted exams where dose is matched to clinical indication); or iterative reconstruction. Other contrast: fall backward; COMPARISON: 1. CT HEAD WITHOUT CONTRAST 04/25/2016 2:[address] CHEST WO 01/15/2021 1:10 PM FINDINGS: Bones/joints: No acute fracture. Normal alignment. Discs/Spinal canal/Neural foramina: There are multilevel degenerative changes most prominent at C4-C5 with bilateral neural foraminal narrowing. No significant spinal canal stenosis. Lungs: Lung apices are normal. Soft tissues: Unremarkable. IMPRESSION: No acute fracture. Multilevel degenerative changes as described. Dictated and Authenticated by: Mary Burrell MD. Ordering:BRICE Kovacs MD
== END 2021-04-27 21:41 | disposition home or self-care (01) ==
PROVIDERS: Emergency Provider Physician Assistant; PCP Internal Medicine
DX: S09.8XXA Other specified injuries of head, initial encounter (principal); W18.39XA Other fall on same level, initial encounter; R11.0 Nausea; Z79.01 Long term (current) use of anticoagulants; I48.91 Unspecified atrial fibrillation
CPT/HCPCS: 36415; 80053; 85027; 96361; 96374; 99284; 70450; 72125; 85610; 85730; J2405

== ENCOUNTER → 2021-07-19 10:48 | Outpatient (BNVA) | payer MEDICARE, MEDICAID, SELFPAY | PROVIDERS: PCP Internal Medicine; Referring Provider Internal Medicine; Visit Provider Student in an Organized Health Care Education/Training Program | DX: M17.11 Unilateral primary osteoarthritis, right knee (principal); M17.12 Unilateral primary osteoarthritis, left knee | CPT/HCPCS: 20610; J3304 ==

== ENCOUNTER 2021-09-14 20:48 | Outpatient (REF) | payer MEDICARE, MEDICAID, SELFPAY ==
[2021-09-14 16:08] LABS: Anion Gap 4.4 mmol/L (3-11); BUN 32 mg/dL (7-18); CO2 34.6 mmol/L (21.0-32.0); CREATININE 1.4 mg/dL (0.55-1.02); Calcium 9.1 mg/dL (8.5-10.1); Chloride 101 mmol/L (98-107); Estimated GFR 35.74 (mL/min/1.73m2); Glucose 98 mg/dL (74-106); NT-proBNP 2833 pg/mL (<300); Potassium 3.7 mmol/L (3.5-5.1); Sodium 140 mmol/L (136-145)
== END 2021-09-14 20:49 | disposition home or self-care (01) ==
LOC: NCHCN 20:48
PROVIDERS: PCP Internal Medicine; Visit Provider Internal Medicine
DX: N18.30 Chronic kidney disease, stage 3 unspecified (principal); I45.81 Long QT syndrome; I50.22 Chronic systolic (congestive) heart failure; I25.10 Atherosclerotic heart disease of native coronary artery without angina pectoris; I48.20 Chronic atrial fibrillation, unspecified
CPT/HCPCS: 80048; 83880

== ENCOUNTER → 2021-10-25 11:00 | Outpatient (BNVA) | payer MEDICARE, MEDICAID, SELFPAY | PROVIDERS: PCP Internal Medicine; Visit Provider Student in an Organized Health Care Education/Training Program | DX: M17.11 Unilateral primary osteoarthritis, right knee (principal); M17.12 Unilateral primary osteoarthritis, left knee | CPT/HCPCS: 20610; J1040 ==

== ENCOUNTER 2021-11-02 19:49 | Outpatient (REF) | payer MEDICARE, MEDICAID, SELFPAY ==
[2021-11-02 19:37] LABS: Bilirubin Negative (Negative); Blood Negative (Negative); Clarity Cloudy (Clear); Glucose 100 mg/dL (Negative); Ketones Negative (Negative); Leukocyte Esterase Large (Negative); Nitrite Negative (Negative); Specific Gravity 1.015 (1.005-1.025); Urobilinogen 0.2 EU/dL (Up TO 0.2)
[2021-11-02 19:53] LABS: Bacteria Many HPF (Negative); C & S Indicated? C&S Done As Ordered; Casts Negative LPF (Negative); Crystals Negative HPF (Negative); Epithelial Cells Few HPF (Negative); Mucus Negative (Negative); WBC >50 HPF (0-5)
== END 2021-11-02 19:50 | disposition home or self-care (01) ==
LOC: NCHCN 19:49
PROVIDERS: PCP Internal Medicine; Visit Provider Internal Medicine
DX: N39.0 Urinary tract infection, site not specified (principal)
CPT/HCPCS: 87077; 81003; 81015; 87086; 87186

== ENCOUNTER 2021-11-12 17:14 | Outpatient (REF) | payer MEDICARE, MEDICAID, SELFPAY ==
[2021-11-12 19:15] LABS: Bilirubin Negative (Negative); Blood Small (Negative); Clarity Sl Cloudy (Clear); Glucose 250 mg/dL (Negative); Ketones Negative (Negative); Leukocyte Esterase Large (Negative); Nitrite Positive (Negative); Specific Gravity 1.015 (1.005-1.025); Urobilinogen 0.2 EU/dL (Up TO 0.2)
[2021-11-12 19:22] LABS: WBC >50 HPF (0-5)
[2021-11-12 19:23] LABS: C & S Indicated? C&S Done As Ordered
== END 2021-11-12 17:15 | disposition home or self-care (01) ==
LOC: NCHCN 17:14
PROVIDERS: PCP Internal Medicine; Visit Provider Internal Medicine
DX: N39.0 Urinary tract infection, site not specified (principal)
CPT/HCPCS: 87077; 81003; 81015; 87086; 87186

== ENCOUNTER 2021-11-24 11:17 | Emergency (ER) | payer MEDICARE, MEDICAID, SELFPAY ==
[2021-11-24] VITALS (46 sets, daily range): BP systolic 99–155; BP diastolic 44–88; PULSE 59–92; RESP 13–24; TEMP 36.4–36.5; O2SAT 82–100
--- NOTE | 2021-11-24 11:00 | RT.EKG_ITS ---
APPROVED REPORT Exam: Resting ECG Reason for Exam: syncope, bradycardia Patient Location: E HR:76 bpm ECG Measurements Heart Rate 76 AXIS UT 207 P 20 QRSd 152 QRS 115 QT 448 T -49 QTc 503 Conclusion Ventricular-paced rhythm
--- NOTE | 2021-11-24 11:30 | DI.RAD_ITS ---
Exam(s) XR CHEST 2V PA LATERAL EXAM: XR CHEST 2V PA LATERAL CLINICAL HISTORY: Palpitations, SOB. TECHNIQUE: 2D digital imaging was performed. COMPARISON: CR XR RIBS LT W PA LAT CHEST from 01/04/2021 FINDINGS: 2 views: Bipolar left subclavian pacemaker is again noted with lead tips in right atrium and right ventricle. Mild cardiomegaly again noted. Mediastinum not widened. No new infiltrates nor pleural effusion on the right side. On the left side there is a midlung level density measuring approximately 1.7 x 1.5 cm. Not previous ly present. May represent significant nodular infiltrate. No obvious pleural effusions evident. No pulmonary edema. IMPRESSION: Nodule infiltrate in the left midlung zone. Follow-up CT scan recommended to rule out neoplasm. Cardiomegaly. Pacemaker. No evidence of pulmonary edema. DATA REPOSITORY: RADIATION DOSE DELIVERED:
--- NOTE | 2021-11-24 11:35 | W.ED.GENAD ---
Discharge Plan Disposition Patient Disposition: HOME Condition: Good Discharge Details Clinical Impression: Heart palpitations Primary Care Provider: Aman Granado ED Provider: Melony Aldnaa Home Meds and New Rx's Prescriptions: Continued ascorbic acid (vitamin C) [Vitamin C] 500 MG capsule, extended release 500 mg PO DAILY cranberry fruit 500 MG tablet,chewable 500 mg PO DAILY (DME) disposable gloves [Vinyl Gloves] 1 EACH misc 1 ea Topical PRN (DME) Aerochamber MV 1 EACH spacer 1 ea Miscellaneous DIRECTED torsemide 100 mg tablet 50 - 100 mg PO DAILY Label Comments: 04/13/20-PT STATES CURRENT DOSE IS 100MG DAILY, THEN 50MG DAILY, ALTERNATING EACH DAY--VIVIANA WOLFE Rx Instructions: alternate days with 1/2 tab and full tab bisacodyl [Dulcolax (bisacodyl)] 10 mg suppository 10 mg OH DAILY PRN metoprolol succinate 25 mg tablet extended release 24 hr 25 mg PO DAILY Jardiance 10 mg tablet 10 mg PO DAILY atorvastatin [Lipitor] 20 MG tablet 20 mg PO HS nitroglycerin [Nitrostat] 0.4 MG tablet, sublingual 1 tab Sublingual Q5MX3 PRN Label Comments: pt states she has not used in a while 11/13/15 albuterol sulfate [Proventil HFA] 1 PUFF HFA aerosol inhaler 2 puff Inhalation Q4H PRN vitamin E 400 UNIT capsule 400 unit PO DAILY potassium chloride [Klor-Con M10] 10 MEQ tablet,ER particles/crystals 10 meq PO DAILY Eliquis 5 MG tablet 0.5 tab PO BID diltiazem HCl 120 MG capsule,extended release 24hr 120 mg PO DAILY Qty: 30 0RF mometasone 50 mcg/actuation [place],Non-Aerosol 1 spray INTRANASAL DAILY albuterol sulfate [ProAir HFA] 90 mcg/actuation Hfa Aerosol Inhaler 2 puff INHALATION Q4H PRN clotrimazole 1 % Cream 1 applic TOPICAL BID polyethylene glycol 3350 17 gram/dose Powder 8.5 - 25.5 g PO DIRECTED ipratropium-albuterol 0.5 mg-3 mg(2.5 mg base)/3 mL solution for nebulization 3 ml INHALATION TID Label Comments: INHALE THE CONTENTS OF ONE VIAL VIA NEBULIZER THREE TIMES A DAY Entresto 49-51 mg tablet 1 tab PO BID Label Comments: TAKE ONE TABLET BY MOUTH TWICE A DAY nystatin 15 GM cream 1 applic Topical BID Incruse Ellipta 1 PUFF blister with device 1 puff Inhalation DAILY acetaminophen [Tylenol] 325 MG tablet 650 mg PO BID PRN Label Comments: 05/01/17 taking 1000 mg Twice a day. ERIC albuterol sulfate 2.5 mg /3 mL (0.083 %) Solution For Nebulization 2.5 mg inhalation .Q6 HOURS PRN Advair HFA 115-21 mcg/actuation Hfa Aerosol Inhaler 2 puff INHALATION BID Discharge Instructions Instructions: Heart Palpitations (ED) Additional Instructions: Your blood tests and EKG today are reassuring and show no evidence of acute concerning or significant findings. Your chest x-ray today showed no evidence of acute disease but did note a nodule in the left lung. It is recommended to follow-up with your primary care doctor for further discussion and consideration for referral for CT imaging for further examination of this area. You have been placed on care management's list to arrange for a follow-up appointment with your primary care doctor for reevaluation. Be sure to get plenty of rest. Return immediately to the emergency department if you develop any worsening or new concerning symptoms. Discharge Data Discharge Physician: Melony Aldana Medical Decision Making <Michael Triplett MD - Last Filed: 11/24/21 14:37> 86-year-old female with history of A. fib, with pacemaker, presents from home stating she had the rapid onset this morning of palpitations and pounding of her heart rate causing her to feel weak. She is able to rest and call a family member. Improved by the time of arrival and now feeling improved. Patient's Medtronic pacemaker was interrogated. This did not show any adverse events, no device or lead performance issues observed. Battery has 12 years remaining. No high heart rate episodes were recorded. White blood cell count is 8 with hematocrit 42 and platelets 257. Chemistries note unremarkable electrolytes of BUN 42, creatinine 1.9, BNP of 1895. Troponin negative. Patient's BNP is below her baseline of approximately 2-3000. Her BNP around 30-40 and creatinine 1.1-2. Likely mild prerenal dehydration today. Chest x-ray with no evidence of pulmonary edema. Cardiomegaly and pacemaker noted. Also note of left midlung density measuring 1.7 x 1.5 cm. Will require follow-up. The patient ate a lunch meal and felt significantly improved, as she had not eaten breakfast. We will continue to observe and repeat troponin. Patient to be signed out to Dr. Aldana pending repeat evaluation of troponin Lab Data Lab results reviewed: Yes I reviewed the patient's lab results. Labs: Laboratory Results - last 24 hr 11/24/21 11/24/21 11/24/21 12:05 12:05 12:05 WBC 8.15 RBC 4.38 Hgb 13.1 Hct 42.4 MCV 97 H MCH 29.9 MCHC 30.9 L RDW 13.9 Plt Count 257 MPV 10.0 Immature Gran % 0.4 Neutrophils % 67.4 Lymphocytes % 17.3 Monocytes % 10.9 Eosinophils % 2.9 Basophils % 1.1 Nucleated RBC % 0.0 Absolute Neutrophils 5.49 Absolute Lymphocytes 1.41 Absolute Monocytes 0.89 H Absolute Eosinophils 0.24 Absolute Basophils 0.09 PT 10.8 INR 1.1 Sodium 143 Potassium 4.5 Chloride 102 Carbon Dioxide 37.1 H Anion Gap 3.9 BUN 42 H Creatinine 1.9 H Est GFR (CKD-EPI 2020) 25.56 Glucose 107 H Calcium 9.4 Magnesium 2.8 H Total Bilirubin 0.4 AST 18 ALT 13 L Alkaline Phosphatase 73 Troponin I < 50 NT-Pro-B Natriuret Pep 1895 H Total Protein 6.8 Albumin 3.0 L <Melony Aldana, DO - Last Filed: 11/24/21 16:45> Dr. Triplett 86-year-old female with history of A. fib, with pacemaker, presents from home stating she had the rapid onset this morning of palpitations and pounding of her heart rate causing her to feel weak. She is able to rest and call a family member. Improved by the time of arrival and now feeling improved. Patient's Medtronic pacemaker was interrogated. This did not show any adverse events, no device or lead performance issues observed. Battery has 12 years remaining. No high heart rate episodes were recorded. White blood cell count is 8 with hematocrit 42 and platelets 257. Chemistries note unremarkable electrolytes of BUN 42, creatinine 1.9, BNP of 1895. Troponin negative. Patient's BNP is below her baseline of approximately 2-3000. Her BNP around 30-40 and creatinine 1.1-2. Likely mild prerenal dehydration today. Chest x-ray with no evidence of pulmonary edema. Cardiomegaly and pacemaker noted. Also note of left midlung density measuring 1.7 x 1.5 cm. Will require follow-up. The patient ate a lunch meal and felt significantly improved, as she had not eaten breakfast. We will continue to observe and repeat troponin. Patient to be signed out to Dr. Aldana pending repeat evaluation of troponin. Dr. Aldana 1500 -- please see Dr. Triplett's note for initial presentation, exam and plan. Case endorsed to follow-up on repeat troponin and if negative will plan for discharge to home. 1645 -- repeat troponin negative. Patient is asymptomatic like to go home. Patient placed on care management list to arrange for a follow-up appointment with her primary care doctor for reevaluation and for referral for CT chest for further evaluation of the left lung nodule noted on chest x-ray today. Usual and customary return precautions given prior to discharge. Medical Records Medical records reviewed: Yes I reviewed the patient's medical records. HPI <Michael Triplett MD - Last Filed: 11/24/21 14:37> General Mode of arrival: EMS. Date/Time Provider Initiated Documentation: 11/24/21 11:25. Limitations to Documentation: no limitations. Information obtained by: patient and EMS. History of Present Illness 86 year old F presents to the emergency department with the chief complaint of Rapid heart rate at home, now improved, described as similar to prior episodes, and is localized to the chest. Patient started experiencing this minute(s) and it has been now resolved. No relieving factors improve symptom(s), No exacerbating factors reported . Patient notes shortness of breath and weakness; denies chest pain, cough and syncope. Patient did receive the following treatments prior to arrival, none Related Data Home Medications Medication Instructions Recorded Confirmed albuterol sulfate 90 mcg/actuation 2 puff inhalation Q4H PRN 12/23/14 10/26/21 aerosol inhaler (Proventil HFA) atorvastatin 20 mg tablet (Lipitor) 20 mg PO HS 12/23/14 11/24/21 nitroglycerin 0.4 mg sublingual 1 tab sublingual Q5MX3 PRN 12/23/14 11/24/21 tablet (Nitrostat) potassium chloride 10 mEq 10 meq PO DAILY 12/23/14 11/24/21 tablet,extended release(part/cryst) (Klor-Con M) vitamin E 268 mg (400 unit) capsule 400 unit PO DAILY 12/23/14 11/24/21 apixaban 5 mg tablet (Eliquis) 0.5 tab PO BID 11/13/15 11/24/21 ascorbic acid (vitamin C) 500 mg 500 mg PO DAILY 04/04/16 11/24/21 capsule,extended release (Vitamin C) cranberry fruit 500 mg chewable 500 mg PO DAILY 04/04/16 11/24/21 tablet acetaminophen 325 mg tablet 650 mg PO BID PRN 05/09/16 11/24/21 (Tylenol) nystatin 100,000 unit/gram topical 1 applic topical BID 05/09/16 11/24/21 cream umeclidinium 62.5 mcg/actuation 1 puff inhalation DAILY 05/09/16 10/26/21 blister powder for inhalation (Incruse Ellipta) disposable gloves (Vinyl Gloves) 05/11/16 10/26/21 inhalational spacing device 05/11/16 10/26/21 (Aerochamber MV spacer) diltiazem HCl 120 mg 120 mg PO DAILY ##30 03/26/17 10/26/21 capsule,extended release 24 hr albuterol sulfate 2.5 mg/3 mL 2.5 mg inhalation .Q6 HOURS PRN 02/26/19 11/24/21 (0.083 %) solution for nebulization fluticasone propionate 115 2 puff inhalation BID 02/26/19 11/24/21 mcg-salmeterol 21 mcg/actuation HFA inhaler (Advair HFA) torsemide 100 mg tablet 50 - 100 mg PO DAILY 04/13/20 11/24/21 bisacodyl 10 mg rectal suppository 10 mg OH DAILY PRN 01/12/21 11/24/21 (Dulcolax (bisacodyl)) metoprolol succinate 25 mg 25 mg PO DAILY 01/12/21 11/24/21 tablet,extended release 24 hr empagliflozin 10 mg tablet 10 mg PO DAILY 10/28/21 11/24/21 (Jardiance) albuterol sulfate 90 mcg/actuation 2 puff inhalation Q4H PRN 11/24/21 11/24/21 aerosol inhaler (ProAir HFA) clotrimazole 1 % topical cream 1 applic topical BID 11/24/21 11/24/21 ipratropium 0.5 mg-albuterol 3 mg 3 ml inhalation TID 11/24/21 11/24/21 (2.5 mg base)/3 mL nebulization soln mometasone 50 mcg/actuation nasal 1 spray intranasal DAILY 11/24/21 11/24/21 spray polyethylene glycol 3350 17 8.5 - 25.5 g PO DIRECTED 11/24/21 11/24/21 gram/dose oral powder sacubitril 49 mg-valsartan 51 mg 1 tab PO BID 11/24/21 11/24/21 tablet (Entresto) Previous Rx's Medication Instructions Recorded diltiazem HCl 120 mg 120 mg PO DAILY ##30 03/26/17 capsule,extended release 24 hr Allergies Allergy/AdvReac Type Severity Reaction Status Date / Time aspirin AdvReac Mild Unverified 11/24/21 12:28 erythromycin base AdvReac Mild Unverified 11/24/21 12:28 lisinopril AdvReac Mild Unverified 11/24/21 12:28 General Stated Complaint: Chest Pain KARLA: 2 Review of Systems <Michael Triplett MD - Last Filed: 11/24/21 14:37> Narrative: States she is improving by the time of arrival. No chest pain or shortness of breath. PFSH <Michael Triplett MD - Last Filed: 11/24/21 14:37> All Active Problems (Updated 11/24/21 @ 13:41 by Michael Triplett MD) Heart palpitations (Acute) Cellulitis of right lower extremity (Acute) Atrial fibrillation (Acute) COPD (chronic obstructive pulmonary disease) (Chronic) CHF (congestive heart failure) (Chronic) Primary osteoarthritis of right knee (Acute 05/01/17) Steroid injection: 10/25/21; 04/12/21; 07/13/2020; 04/13/2020; 11/29/18; 06/25/2018; 05/01/17; 11/02/16; 04/04/16 ZILRETTA: 07/19/21 Primary osteoarthritis of left knee (Acute 08/13/15) Steroid injection: 10/25/21; 04/12/21; 04/13/2020; 11/29/18; 06/25/2018; 12/27/17; 08/21/17; 05/01/17; 11/02/16; 04/04/16; 08/13/15 Synvisc injection: 07/13/2020; 11/01/17 ZILRETTA: 07/19/21 UTI (urinary tract infection) (Acute) Generalized weakness (Acute) Dehydration (Acute) Hyperglycemia (Acute) Chest pain (Acute) COPD exacerbation (Acute) Hypokalemia (Acute) Constipation (Acute) Social History Smoking/Tobacco Use Status: Former Tobacco Use Smoking risk assessment performed?: Yes Alcohol Intake: current Alcohol Intake frequency: holidays/special occasions only Alcohol type: beer Drug use: Never Substance use type: does not use Current gender identity: female Do you feel safe at home: Yes Do you feel safe in your relationship?: Yes History History Para 2 Hx # Term Pregnancies Multiple births Hx # Pregnancies Ectopic pregnancies AB induced Hx Number of Living Children AB spontaneous Exam <Micheal Triplett MD - Last Filed: 11/24/21 14:37> Narrative Exam Narrative: GEN: awake, alert, oriented 3. Pleasant, well groomed, interactive. HEAD: Normocephalic, atraumatic ENT: Mucous membranes moist, oropharynx unremarkable, External ear exam unremarkable EYES: PERRL, EOMI NECK: Full ROM, no AMANDA, no menigismus CHEST/RESP: Nontender, clear to auscultation bilateral, no wheeze/rhonchi/rales CARDIOVASCULAR: Regular, distant. 1+ Rad pulse bilateral ABDOMEN: Soft, nontender, no mass. +Bowel sounds EXT: Full ROM, no edema, no rash Neuro: Grossly normal neurologic exam, conversant, interactive. Psych: Speech fluent, thoughts congruent, affect normal Course <Michael Triplett MD - Last Filed: 11/24/21 14:37> Vital Signs Vital signs: Vital Signs Temperature 36.4 C L 11/24/21 11:16 Pulse 92 H 11/24/21 11:16 Respiratory Rate 19 11/24/21 11:16 Blood Pressure 99/73 L 11/24/21 11:16 Pulse Oximetry 98 11/24/21 11:16 Temperature 36.4 C L 11/24/21 11:16 Pulse 92 H 11/24/21 11:16 Respiratory Rate 19 11/24/21 11:16 Blood Pressure 99/73 L 11/24/21 11:16 Blood Pressure Position Sitting 11/24/21 11:16 Pulse Oximetry 98 11/24/21 11:16 Oxygen Delivery Method Nasal Cannula 11/24/21 11:16 Oxygen Flow Rate 2 11/24/21 11:16 Pain Level 3 11/24/21 11:16 Sign Out <Michael Triplett MD - Last Filed: 11/24/21 14:37> Sign Out Data: Sign Out Comment: Followup repeat troponin Last updated by Michael Triplett MD at 11/24/21 14:38
[2021-11-24 12:10] LABS: Abs Immature Grans 0.03 10^3/uL (0.0-0.06); Absolute Basophil Count 0.09 10^3/uL (0.0-0.2); Absolute Eosinophil Count 0.24 10^3/uL (0.0-0.7); Absolute Lymphocyte Count 1.41 10^3/uL (1.2-3.4); Absolute Monocyte Count 0.89 10^3/uL (0.1-0.8); Absolute Neutrophil Count 5.49 10^3/uL (1.2-6.7); Basophils % 1.1; Eosinophils % 2.9; HCT 42.4 % (36.0-46.0); HGB 13.1 g/dL (11.2-15.7); Immature Grans % 0.4; Lymphocytes % 17.3; MCH 29.9 pg (27.0-33.0); MCHC 30.9 % (32.0-36.0); MCV 97 fL (80-95); Monocytes % 10.9; Neutrophils % 67.4; Platelet Count 257 10^3/uL (130-400); RBC 4.38 10^6/uL (3.93-5.22); RDW 13.9 % (11.7-14.6); RDW-SD 49.3 fL; WBC 8.15 10^3/uL (4.4-10.8)
[2021-11-24 12:25] LABS: INR 1.1 (0.9-1.1); Prothrombin Time 10.8 sec (9.3-11.0)
[2021-11-24 12:41] LABS: ALT 13 U/L (14-59); AST 18 U/L (15-37); Alkaline Phosphatase 73 U/L (46-116); Anion Gap 3.9 mmol/L (3-11); BUN 42 mg/dL (7-18); Bilirubin, Total 0.4 mg/dL (0.2-1.0); CO2 37.1 mmol/L (21.0-32.0); CREATININE 1.9 mg/dL (0.55-1.02); Calcium 9.4 mg/dL (8.5-10.1); Chloride 102 mmol/L (98-107); Estimated GFR 25.56 (mL/min/1.73m2); Glucose 107 mg/dL (74-106); Magnesium 2.8 mg/dL (1.8-2.4); NT-proBNP 1895 pg/mL (<300); Potassium 4.5 mmol/L (3.5-5.1); Sodium 143 mmol/L (136-145); Total Protein 6.8 g/dL (6.4-8.2); Troponin I < 50 ng/L (<or=60)
--- NOTE | 2021-11-24 13:41 | NUR.NOTE ---
Nursing Note: Referral faxed to PCP for lung nodule, within 10 to 14 days.
--- NOTE | 2021-11-24 14:05 | NUR.NOTE ---
Lunch provided 13:00
[2021-11-24 15:57] LABS: Troponin I < 50 ng/L (<or=60)
== END 2021-11-24 16:59 | disposition home or self-care (01) ==
PROVIDERS: Emergency Medicine; Emergency Provider Physician Assistant; PCP Internal Medicine
DX: R00.2 Palpitations (principal); I48.91 Unspecified atrial fibrillation; I51.7 Cardiomegaly; Z79.01 Long term (current) use of anticoagulants; Z95.0 Presence of cardiac pacemaker; Z87.891 Personal history of nicotine dependence; R06.02 Shortness of breath
CPT/HCPCS: 36415; 80053; 93005; 99284; 71046; 83735; 83880; 84484; 85025; 85610; 93010

== ENCOUNTER 2021-12-14 13:48 | Outpatient (REF) | payer MEDICARE, MEDICAID, SELFPAY ==
[2021-12-14 16:15] LABS: Hemoglobin A1C 5.7 % (<5.7)
[2021-12-14 16:33] LABS: Anion Gap 6.6 mmol/L (3-11); BUN 41 mg/dL (7-18); CO2 34.4 mmol/L (21.0-32.0); CREATININE 1.8 mg/dL (0.55-1.02); Calcium 9.1 mg/dL (8.5-10.1); Chloride 103 mmol/L (98-107); Estimated GFR 27.27 (mL/min/1.73m2); Glucose 121 mg/dL (74-106); Magnesium 2.5 mg/dL (1.8-2.4); Potassium 3.6 mmol/L (3.5-5.1); Sodium 144 mmol/L (136-145); TSH 1.39 uIU/mL (0.36-3.74); Vitamin B12 486 pg/mL (193-986)
[2021-12-17 14:55] LABS: Albumin 52.3 % (55.8-66.1); Comment (See Note); Total Protein 5.8 g/dL (6.3-8.2)
[2021-12-17 15:35] LABS: Immunotyping, Serum (See Note)
== END 2021-12-14 13:49 | disposition home or self-care (01) ==
LOC: NCHCN 13:48
PROVIDERS: PCP Internal Medicine; Visit Provider Internal Medicine
DX: E11.9 Type 2 diabetes mellitus without complications (principal); I50.22 Chronic systolic (congestive) heart failure; I10 Essential (primary) hypertension; N39.0 Urinary tract infection, site not specified; I45.81 Long QT syndrome
CPT/HCPCS: 80048; 82607; 83036; 83735; 84165; 84443; 86320

== ENCOUNTER → 2021-12-15 00:59 | Outpatient (CLI) | payer MEDICARE, MEDICAID, SELFPAY ==
--- NOTE | 2021-12-15 10:30 | DI.CT_ITS ---
Exam(s) CT CHEST WO EXAM: CT CHEST WO CLINICAL HISTORY: PULMONARY NODULES R91.8. TECHNIQUE: Imaging protocol: Axial computed tomography images were obtained and coronal and sagittal reformatted images were created and reviewed. COMPARISON: CT CT CHEST WO from 01/15/2021 FINDINGS: The examination is limited due to patient motion artifact. Tracheobronchial tree: Patent where visualized. Pulmonary parenchyma: No focal consolidation. There are multiple noncalcified pulmonary nodules are present. The largest is again seen in the right middle lobe measures 9 mm. No architectural distort ion. Mediastinum and Debra: No dominant adenopathy or fluid collection. The esophagus is unremarkable.Small hiatal hernia. Thyroid gland: Unremarkable. Pleura: No effusion or pneumothorax. Heart: Cardiomegaly. There is moderate coronary artery calcification. No pericardial effusion. Aorta: Thoracic aorta non-dilated. Atherosclerosis is present. Upper abdomen: There is atrophy of the right kidney. There is colonic diverticulosis. Lymph nodes: Within normal limits. Tubes, Catheters, and Lines: There is a dual lead pacing device. Soft tissues: Unremarkable. Bones:Within normal limits for the patient's age. There are old healed rib fractures. IMPRESSION: Stable pulmonary nodules. RADIATION DOSE DELIVERED: 527.05mGy.cm Total DLP 527.05mGy.cm Total DLP DATA REPOSITORY: All CT scans at this facility are submitted to the National Radiology Data Registry (NRDR) Dose Index Registry (DIR) with the [employer] ([employer]). RADIATION OPTIMIZATION: All CT scans at this facility use at least one of these dose optimization te chniques: automated exposure control; mA and/or kV adjustment per patient size (includes targeted exa ms where dose is matched to clinical indication); or iterative reconstruction.
== END ==
PROVIDERS: PCP Internal Medicine; Visit Provider Internal Medicine
DX: R91.8 Other nonspecific abnormal finding of lung field (principal)
CPT/HCPCS: 71250

== ENCOUNTER 2022-01-19 20:29 | Emergency (ER) | payer MEDICARE, MEDICAID, SELFPAY ==
--- NOTE | 2022-01-19 20:45 | DI.CT_ITS ---
Exam(s) CT ABDOMEN PELVIS W EXAM: CT ABDOMEN PELVIS W CLINICAL HISTORY: nasuea vomiting TECHNIQUE: Imaging Protocol: Axial computed tomography images with coronal and sagittal reformatted images were created and reviewed CONTRAST MATERIAL: Intravenous: Omnipaque 350 Contrast volume:100 mL Oral: No COMPARISON: CT CT ABDOMEN PELVIS W from 03/01/2021 FINDINGS: The examination is limited due to patient motion artifact. ABDOMEN: Lung Bases: Cardiomegaly. There is a small hiatal hernia. There is a stable nodule in the right gi g base. Liver: Normal density. There are stable hepatic cysts. No suspicious hepatic masses are seen. Portal, Superior Mesenteric, and Splenic Veins: Unremarkable. Gallbladder and Biliary Tract: No radiodense calculus or dilation. Pancreas: Normal density, no abnormal calcifications or inflammatory process. Spleen: Normal. Adrenals: No masses seen. Kidneys: There is again seen atrophy of the right kidney. No radiodense stones or obstructive uropat hy. No masses seen. Abdominal Aorta: Abdominal portion non-dilated. Atherosclerosis is present. Bowel: No obstruction or bowel wall thickening. Appendix is unremarkable. There is diverticulosis in the colon, but no evidence of acute diverticulitis. There is again seen an anterior abdominal wall h ernia, located superior to the anterior abdominal wall repair, containing a unremarkable loop of smal l bowel. No evidence of obstruction is seen. Peritoneal Cavity: No ascites, collection or mesenteric inflammatory response. No free air. Lymph Nodes: Within normal limits. Bones: Within normal limits for the patient's age. There is a stable mild compression of the T12 vannessa tebral body. Soft Tissues: Unremarkable. PELVIS: Bladder: Symmetric distention, no gross wall thickening. Reproductive Organs: Status post hysterectomy. Lymph Nodes: Within normal limits. Bones: Within normal limits for the patient's age. IMPRESSION: 1. No acute abdominal or pelvic process. 2. Stable chronic findings as described above. RADIATION DOSE DELIVERED: 1,013.92mGy.cm Total DLP DATA REPOSITORY: All CT scans at this facility are submitted to the National Radiology Data Registry (NRDR) Dose Index Registry (DIR) with the [employer] (ACR). RADIATION OPTIMIZATION: All CT scans at this facility use at least one of these dose optimization te chniques: automated exposure control; mA and/or kV adjustment per patient size (includes targeted exa ms where dose is matched to clinical indication); or iterative reconstruction.
--- NOTE | 2022-01-19 21:00 | DI.RAD_ITS ---
Exam(s) XR PORTABLE CHEST AP EXAM: XR PORTABLE CHEST AP CLINICAL HISTORY: fatigue, cough TECHNIQUE: 2D digital imaging was performed of the chest. One image was obtained. An AP view was ob tained. COMPARISON: CR XR PORTABLE CHEST AP from 09/29/2020 CR XR CHEST 2V PA LATERAL from 11/24/2021 FINDINGS: MEDIASTINUM: Normal. HEART: Stable cardiomegaly. Cardiac pacing device is in good position. PULMONARY VASCULATURE: Normal. LUNGS: No focal consolidating infiltrate. Increased interstitial markings throughout the lungs. Thi s is suspicious for pulmonary venous congestion. PLEURAL SPACE: No pleural effusion or pneumothorax. BONE:Within normal limits for the patient's age. OTHER FINDINGS:Normal. IMPRESSION: 1. Cardiomegaly and pulmonary venous congestion. 2. No focal consolidating infiltrates. DATA REPOSITORY: RADIATION DOSE DELIVERED:
[2022-01-19 21:08] VITALS: BP 141/52; PULSE 67; RESP 26; O2SAT 96
--- NOTE | 2022-01-19 21:14 | W.ED.GENAD ---
Discharge Plan Discharge Details Chief Complaint: GenMedical Primary Care Provider: Aman Granado ED Provider: Pedrito Burt Home Meds and New Rx's Prescriptions: No Action ascorbic acid (vitamin C) [Vitamin C] 500 MG capsule, extended release 500 mg PO DAILY cranberry fruit 500 MG tablet,chewable 500 mg PO DAILY (DME) disposable gloves [Vinyl Gloves] 1 EACH misc 1 ea Topical PRN (DME) Aerochamber MV 1 EACH spacer 1 ea Miscellaneous DIRECTED torsemide 100 mg tablet 50 - 100 mg PO DAILY Label Comments: 04/13/20-PT STATES CURRENT DOSE IS 100MG DAILY, THEN 50MG DAILY, ALTERNATING EACH DAY--VIVIANA WOLFE Rx Instructions: alternate days with 1/2 tab and full tab bisacodyl [Dulcolax (bisacodyl)] 10 mg suppository 10 mg LA DAILY PRN metoprolol succinate 25 mg tablet extended release 24 hr 25 mg PO DAILY Jardiance 10 mg tablet 10 mg PO DAILY atorvastatin [Lipitor] 20 MG tablet 20 mg PO HS nitroglycerin [Nitrostat] 0.4 MG tablet, sublingual 1 tab Sublingual Q5MX3 PRN Label Comments: pt states she has not used in a while 11/13/15 albuterol sulfate [Proventil HFA] 1 PUFF HFA aerosol inhaler 2 puff Inhalation Q4H PRN vitamin E 400 UNIT capsule 400 unit PO DAILY potassium chloride [Klor-Con M10] 10 MEQ tablet,ER particles/crystals 10 meq PO DAILY Eliquis 5 MG tablet 0.5 tab PO BID diltiazem HCl 120 MG capsule,extended release 24hr 120 mg PO DAILY Qty: 30 0RF mometasone 50 mcg/actuation [place],Non-Aerosol 1 spray INTRANASAL DAILY albuterol sulfate [ProAir HFA] 90 mcg/actuation Hfa Aerosol Inhaler 2 puff INHALATION Q4H PRN clotrimazole 1 % Cream 1 applic TOPICAL BID polyethylene glycol 3350 17 gram/dose Powder 8.5 - 25.5 g PO DIRECTED ipratropium-albuterol 0.5 mg-3 mg(2.5 mg base)/3 mL solution for nebulization 3 ml INHALATION TID Label Comments: INHALE THE CONTENTS OF ONE VIAL VIA NEBULIZER THREE TIMES A DAY Entresto 49-51 mg tablet 1 tab PO BID Label Comments: TAKE ONE TABLET BY MOUTH TWICE A DAY nystatin 15 GM cream 1 applic Topical BID Incruse Ellipta 1 PUFF blister with device 1 puff Inhalation DAILY acetaminophen [Tylenol] 325 MG tablet 650 mg PO BID PRN Label Comments: 05/01/17 taking 1000 mg Twice a day. ERIC albuterol sulfate 2.5 mg /3 mL (0.083 %) Solution For Nebulization 2.5 mg inhalation .Q6 HOURS PRN Advair HFA 115-21 mcg/actuation Hfa Aerosol Inhaler 2 puff INHALATION BID Medical Decision Making Patient 86-year-old female history of CHF, COPD, A. fib, presents with generalized fatigue nausea vomiting, hemodynamically stable afebrile, does appear tired/fatigued, and dehydrated with dry oral mucosa, slightly tender abdomen on examination, in the setting of nausea vomiting abdominal pain must consider intra-abdominal process such as cholecystitis versus less likely pancreatitis versus enterocolitis versus appendicitis was also consider UTI versus viral syndrome lower suspicion for acute cardiac process. Will obtain screening labs viral swab x-ray CT abdomen pelvis, fluids antiemetics. Starting with 500 cc bolus to see how patient tolerates this from a respiratory standpoint given mild ankle edema and history of CHF. If tolerated will continue with fluid bolus. 23: 00 evidence of UTI started on ceftriaxone. Awaiting CT abdomen pelvis HPI General Date/Time Provider Initiated Documentation: 01/19/22 20:59. HPI Narrative: 86-year-old female history of COPD CHF presents with generalized fatigue nausea and vomiting for the past several days Related Data Home Medications Medication Instructions Recorded Confirmed albuterol sulfate 90 mcg/actuation 2 puff inhalation Q4H PRN 12/23/14 10/26/21 aerosol inhaler (Proventil HFA) atorvastatin 20 mg tablet (Lipitor) 20 mg PO HS 12/23/14 11/24/21 nitroglycerin 0.4 mg sublingual 1 tab sublingual Q5MX3 PRN 12/23/14 11/24/21 tablet (Nitrostat) potassium chloride 10 mEq 10 meq PO DAILY 12/23/14 11/24/21 tablet,extended release(part/cryst) (Klor-Con M) vitamin E 268 mg (400 unit) capsule 400 unit PO DAILY 12/23/14 11/24/21 apixaban 5 mg tablet (Eliquis) 0.5 tab PO BID 11/13/15 11/24/21 ascorbic acid (vitamin C) 500 mg 500 mg PO DAILY 04/04/16 11/24/21 capsule,extended release (Vitamin C) cranberry fruit 500 mg chewable 500 mg PO DAILY 04/04/16 11/24/21 tablet acetaminophen 325 mg tablet 650 mg PO BID PRN 05/09/16 11/24/21 (Tylenol) nystatin 100,000 unit/gram topical 1 applic topical BID 05/09/16 11/24/21 cream umeclidinium 62.5 mcg/actuation 1 puff inhalation DAILY 05/09/16 10/26/21 blister powder for inhalation (Incruse Ellipta) disposable gloves (Vinyl Gloves) 05/11/16 10/26/21 inhalational spacing device 05/11/16 10/26/21 (Aerochamber MV spacer) diltiazem HCl 120 mg 120 mg PO DAILY ##30 03/26/17 10/26/21 capsule,extended release 24 hr albuterol sulfate 2.5 mg/3 mL 2.5 mg inhalation .Q6 HOURS PRN 02/26/19 11/24/21 (0.083 %) solution for nebulization fluticasone propionate 115 2 puff inhalation BID 02/26/19 11/24/21 mcg-salmeterol 21 mcg/actuation HFA inhaler (Advair HFA) torsemide 100 mg tablet 50 - 100 mg PO DAILY 04/13/20 11/24/21 bisacodyl 10 mg rectal suppository 10 mg LA DAILY PRN 01/12/21 11/24/21 (Dulcolax (bisacodyl)) metoprolol succinate 25 mg 25 mg PO DAILY 01/12/21 11/24/21 tablet,extended release 24 hr empagliflozin 10 mg tablet 10 mg PO DAILY 10/28/21 11/24/21 (Jardiance) albuterol sulfate 90 mcg/actuation 2 puff inhalation Q4H PRN 11/24/21 11/24/21 aerosol inhaler (ProAir HFA) clotrimazole 1 % topical cream 1 applic topical BID 11/24/21 11/24/21 ipratropium 0.5 mg-albuterol 3 mg 3 ml inhalation TID 11/24/21 11/24/21 (2.5 mg base)/3 mL nebulization soln mometasone 50 mcg/actuation nasal 1 spray intranasal DAILY 11/24/21 11/24/21 spray polyethylene glycol 3350 17 8.5 - 25.5 g PO DIRECTED 11/24/21 11/24/21 gram/dose oral powder sacubitril 49 mg-valsartan 51 mg 1 tab PO BID 11/24/21 11/24/21 tablet (Entresto) Previous Rx's Medication Instructions Recorded diltiazem HCl 120 mg 120 mg PO DAILY ##30 03/26/17 capsule,extended release 24 hr Allergies Allergy/AdvReac Type Severity Reaction Status Date / Time aspirin AdvReac Mild Unverified 11/24/21 12:28 erythromycin base AdvReac Mild Unverified 11/24/21 12:28 lisinopril AdvReac Mild Unverified 11/24/21 12:28 General Stated Complaint: GenMedical KARLA: 3 Review of Systems Narrative: Review of Systems Constitutional: Fatigue Eyes: negative ENT: negative Cardiovascular: negative Respiratory: negative Gastrointestinal: Nausea, vomiting : negative Musculoskeletal: negative Skin: negative Neurologic: negative Psych: negative PFSH All Active Problems (Updated 12/25/21 @ 00:01 by ROSALEE LOPEZ) Cellulitis of right lower extremity (Acute) Atrial fibrillation (Acute) COPD (chronic obstructive pulmonary disease) (Chronic) CHF (congestive heart failure) (Chronic) Primary osteoarthritis of right knee (Acute 05/01/17) Steroid injection: 10/25/21; 04/12/21; 07/13/2020; 04/13/2020; 11/29/18; 06/25/2018; 05/01/17; 11/02/16; 04/04/16 ZILRETTA: 07/19/21 Primary osteoarthritis of left knee (Acute 08/13/15) Steroid injection: 10/25/21; 04/12/21; 04/13/2020; 11/29/18; 06/25/2018; 12/27/17; 08/21/17; 05/01/17; 11/02/16; 04/04/16; 08/13/15 Synvisc injection: 07/13/2020; 11/01/17 ZILRETTA: 07/19/21 UTI (urinary tract infection) (Acute) Generalized weakness (Acute) Dehydration (Acute) Hyperglycemia (Acute) Chest pain (Acute) COPD exacerbation (Acute) Hypokalemia (Acute) Constipation (Acute) Social History Smoking/Tobacco Use Status: Former Tobacco Use Smoking risk assessment performed?: Yes Alcohol Intake: current Alcohol Intake frequency: holidays/special occasions only Alcohol type: beer Drug use: Never Substance use type: does not use Current gender identity: female Do you feel safe at home: Yes Do you feel safe in your relationship?: Yes History History Para 2 Hx # Term Pregnancies Multiple births Hx # Pregnancies Ectopic pregnancies AB induced Hx Number of Living Children AB spontaneous Exam Narrative Exam Narrative: Physical Examination General: alert, awake, cooperative, appears fatigued and uncomfortable HEENT: normocephalic, atraumatic; PERRL, EOM intact, conjunctiva normal; no nasal discharge; dry oral mucosa Neck: supple, trachea midline; full ROM Chest: normal to inspection Respiratory: normal respiratory effort, speaking in full sentences, clear to auscultation, no wheezing, rales or rhonchi Cardiac: regular rate, regular rhythm, S1S2 intact, no murmurs rubs or gallops GI: abdomen soft, mildly tender abdomen, non-distended; no palpable mass or hepatosplenomegaly Skin: no lesions, rashes or trauma appreciated Neuro: AAOx3, normal speech, moving all extremities Extremities: Mild ankle edema bilaterally Psych: Appropriate mood and affect Course Vital Signs Vital signs: Vital Signs Pulse 67 01/19/22 21:08 Respiratory Rate 26 H 01/19/22 21:08 Blood Pressure 141/52 H 01/19/22 21:08 Pulse Oximetry 96 01/19/22 21:08 Pulse 67 01/19/22 21:08 Respiratory Rate 26 H 01/19/22 21:08 Blood Pressure 141/52 H 01/19/22 21:08 Blood Pressure Position Supine 01/19/22 21:08 Pulse Oximetry 96 01/19/22 21:08 Oxygen Delivery Method Nasal Cannula 01/19/22 21:08 Oxygen Flow Rate 4 01/19/22 21:08 Pain Level 0 01/19/22 21:08
[2022-01-19 21:25] LABS: Abs Immature Grans 0.07 10^3/uL (0.0-0.06); Absolute Basophil Count 0.08 10^3/uL (0.0-0.2); Absolute Eosinophil Count 0.09 10^3/uL (0.0-0.7); Absolute Lymphocyte Count 0.31 10^3/uL (1.2-3.4); Absolute Monocyte Count 0.83 10^3/uL (0.1-0.8); Basophils % 0.7; Eosinophils % 0.8; HGB 13.3 g/dL (11.2-15.7); Immature Grans % 0.6; Lymphocytes % 2.8; MCHC 30.9 % (32.0-36.0); MCV 94 fL (80-95); MPV 10.9 fL (8.0-11.0); Monocytes % 7.5; Neutrophils % 87.6; Platelet Count 258 10^3/uL (130-400); RBC 4.58 10^6/uL (3.93-5.22); RDW 14.2 % (11.7-14.6); RDW-SD 48.8 fL; WBC 11.01 10^3/uL (4.4-10.8)
[2022-01-19 21:27] LABS: Absolute Neutrophil Count 9.64 10^3/uL (1.2-6.7)
[2022-01-19 21:42] LABS: BE (Venous) 9 mmol/L (-2-3); HCO3 (Venous) 34 mmol/L (23-28); O2 Sat (Venous) 61 %; TCO2 (Venous) 36 mmol/l (24-29); pCO2 (Venous) 58 mmHg (41-51); pH (Venous) 7.38 (7.31-7.41); pO2 (Venous) 33 mmHg
[2022-01-19 21:50] LABS: INR 1.1 (0.9-1.1); PTT Activated 24.1 sec (21.0-27.5); Prothrombin Time 11.1 sec (9.3-11.0)
--- NOTE | 2022-01-19 21:51 | DI.VRAD_ITS ---
PROCEDURE INFORMATION: Exam: XR Chest Exam date and time: 01/19/2022 21:07 Age: 86 years old Clinical indication: Cough and other: Fatigue, cough TECHNIQUE: Imaging protocol: Radiologic exam of the chest. Views: 1 view. COMPARISON: CT CHEST WO 12/15/2021 10:24 FINDINGS: Tubes, catheters and devices: Dual lead pacemaker in the expected position. Lungs: No radha airspace disease. Pleural spaces: No large pleural effusion. No pneumothorax. Heart/Mediastinum: Moderate cardiomegaly with mild central vascular congestion superimposed on hyperinflation, similar to prior. Vasculature: Atherosclerosis. Bones/joints: No acute fracture. IMPRESSION: Moderate cardiomegaly with mild central vascular congestion superimposed on hyperinflation, similar to prior. Dictated and Authenticated by: Silvia Ayala MD. Ordering:JIMMY Major MD
[2022-01-19 22:02] LABS: COVID-19 PCR Negative (Negative); Influenza A PCR Negative (Negative); Influenza B PCR Negative (Negative); RSV PCR Negative (Negative)
[2022-01-19 22:04] LABS: Source Nasopharynx
[2022-01-19 22:15] LABS: ALT 16 U/L (14-59); AST 23 U/L (15-37); Albumin 3.2 g/dL (3.4-5.0); Alkaline Phosphatase 72 U/L (46-116); Anion Gap 8.2 mmol/L (3-11); BUN 41 mg/dL (7-18); Bilirubin, Total 0.5 mg/dL (0.2-1.0); CO2 32.8 mmol/L (21.0-32.0); CREATININE 1.9 mg/dL (0.55-1.02); Calcium 9.1 mg/dL (8.5-10.1); Chloride 99 mmol/L (98-107); Estimated GFR 25.56 (mL/min/1.73m2); Glucose 174 mg/dL (74-106); Lipase 117 U/L (73-393); NT-proBNP 3561 pg/mL (<300); Potassium 3.5 mmol/L (3.5-5.1); Sodium 140 mmol/L (136-145); TSH (W/Ref FT4) 2.09 uIU/mL (0.36-3.74); Total Protein 7.3 g/dL (6.4-8.2); Troponin I < 50 ng/L (<or=60)
[2022-01-19 22:28] LABS: Bilirubin Negative (Negative); Blood Negative (Negative); Clarity Sl Cloudy (Clear); Glucose 500 mg/dL (Negative); Ketones Negative (Negative); Leukocyte Esterase Small (Negative); Nitrite Negative (Negative); Urobilinogen 0.2 EU/dL (Up TO 0.2)
[2022-01-19 22:39] LABS: Bacteria Moderate HPF (Negative); C & S Indicated? Yes; Crystals Negative HPF (Negative); Epithelial Cells Rare HPF (Negative); Mucus Negative (Negative); RBC 0-2 HPF (0-2); WBC 20-50 HPF (0-5)
[2022-01-19] MEDS: Omnipaque 350 MG/ML 100 ML BTL IJ (22:48)
[2022-01-19] MEDS: Normal Saline - Diluent 50 ML VIAL IV (22:49)
--- NOTE | 2022-01-19 23:05 | DI.VRAD_ITS ---
PROCEDURE INFORMATION: Exam: CT Abdomen And Pelvis With Contrast Exam date and time: 01/19/2022 22:33 Age: 86 years old Clinical indication: Nausea and vomiting TECHNIQUE: Imaging protocol: Computed tomography of the abdomen and pelvis with contrast. Contrast material: 350; Contrast volume: 100 ml; Contrast route: INTRAVENOUS (IV); COMPARISON: CT ABDOMEN PELVIS W 03/01/2021 15:02 FINDINGS: Tubes, catheters and devices: Cardiac pacemaker leads are partially seen. Lungs: Right basilar pulmonary nodules as visualized are similar to prior. Follow-up as per institutional protocol. Heart: cardiomegaly is partially seen and similar to prior. Diaphragm: Tiny hiatal hernia. Liver: Probable transient hepatic attenuation defect or tiny flash filling hemangioma in the right liver similar to prior. No suspicious hepatic lesions. Gallbladder and bile ducts: Distended gallbladder without calcified stones. No gross biliary dilation for age. Pancreas: No ductal dilation. No masses. Spleen: No splenomegaly or focal lesions. Adrenal glands: No mass. Kidneys and ureters: Moderately chronically atrophic right kidney progressive since prior. Nonobstructive right renal stone. No left hydronephrosis or renal masses. Stomach and bowel: Colonic diverticulosis without diverticulitis. Allowing for motion no acute focal pathology in small bowel. Again seen is a broad diastasis/hernia at the level of the umbilicus containing fat and small bowel without inflammation. Appendix: No evidence of appendicitis. Intraperitoneal space: No free air. No significant fluid collection. Vasculature: Multifocal chronic aortic atherosclerosis and stenosis again seen. No aortic aneurysm. Lymph nodes: No significantly enlarged lymph nodes. Urinary bladder: Unremarkable as visualized. Reproductive: Hysterectomy. Bones/joints: Chronic bony changes with no acute fracture. Soft tissues: No suspicious lesions. IMPRESSION: 1. No acute findings. 2. Incidental findings as described. Dictated and Authenticated by: Silvia Ayala MD. Ordering:JIMMY Major MD
[2022-01-19] MEDS: cefTRIAXone 1 GM VIAL IM (23:41)
[2022-01-19 23:46] VITALS: BP 153/81; PULSE 63; RESP 22; TEMP 36.7; O2SAT 96
== END 2022-01-19 23:47 | disposition home or self-care (01) ==
LOC: ER 23:47
PROVIDERS: Emergency Provider Emergency Medicine; PCP Internal Medicine
DX: N39.0 Urinary tract infection, site not specified (principal); J44.9 Chronic obstructive pulmonary disease, unspecified; I50.9 Heart failure, unspecified; E86.0 Dehydration; B96.20 Unspecified Escherichia coli [E. coli] as the cause of diseases classified elsewhere; R05.1 Acute cough; R53.83 Other fatigue; R11.2 Nausea with vomiting, unspecified; Z20.822 Contact with and (suspected) exposure to COVID-19
CPT/HCPCS: 36416; 80053; 82805; 82962; 83690; 87077; 87637; 99284; 71045; 74177; 81003; 81015; 83880; 84443; 84484; 85025; 85610; 85730; 87086; 87186; J0696; J3490

== ENCOUNTER 2022-01-21 15:37 | Inpatient (IN) | payer MEDICARE, MEDICAID, SELFPAY ==
[2022-01-21] VITALS (69 sets, daily range): BP systolic 97–177; BP diastolic 59–141; PULSE 0–82; RESP 7–61; TEMP 36.7–36.9; O2SAT 84–97
--- NOTE | 2022-01-21 15:15 | RT.EKG_ITS ---
APPROVED REPORT Exam: Resting ECG Reason for Exam: Weakness Patient Location: E HR:79 bpm ECG Measurements Heart Rate 79 AXIS NV 142 P 0 QRSd 151 QRS 95 QT 457 T 240 QTc 524 Conclusion Ventricular-paced complexes. Right bundle branch block Nonspecific ST changes
--- NOTE | 2022-01-21 16:10 | W.ED.GENAD ---
Discharge Plan Disposition Patient Disposition: Admit to [facility] Condition: Poor Discharge Details Chief Complaint: SOB Clinical Impression: COPD exacerbation, CHF (congestive heart failure), COPD (chronic obstructive pulmonary disease), NSTEMI (non-ST elevated myocardial infarction), JARRETT (acute kidney injury) Admit Date/Time: 01/21/22 19:29 Admit Provider: Sebastian Morgan Attending Provider: Sebastian Morgan Primary Care Provider: Aman Granado ED Provider: Bethanie Gray Discharge Data Discharge Date/Time-TO BE ENTERED AT DEPARTURE: 01/21/22 21:54 Medical Decision Making Patient is a pleasant 86 year old female, accompanied by granddaughter, with c/c of SOB and cardiac pause of 37 seconds per her pace maker. She was here two days ago after syncopal episode. At that time, workup was significant for UTI and patient was started on abx. She was d/c'ed to home where she resides with her daughter. They spoke with their eP team at today who noted this pause after reviewing her pacer. They advised she go by EMS to local hospital with plan to transfer to that facility as soon as possible. On exam, patient appears SOB. She is leaning forward, tachypneic and Has accessory muscle use. She has expiratory wheeze and sounds coarse throughout. Her abdomen is benign. 1+ bilateral nonpitting lower extremity edema. Intact distal pulses. Concerned primarily for CHF exacerbation. I will also speak with manager deli regarding the reported abnormal finding on the pacer. She is denying any chest pain at this time. When she is requiring 4 L of oxygen, she is otherwise hemodynamically stable and is not hypotensive. Will obtain EKG. Considered ACS, COPD exacerbation, pneumonia. She is currently on cephalexin for UTI which is grown out E. coli. Will begin diuresing the patient and give DuoNeb. Patient is anticoagulated on e.coli. EKG was obtained and reviewed by Dr. Triplett. Patient has ventricular paced complexes, right bundle branch block and nonspecific ST changes. QTC is prolonged at 524. Patient chronically has prolonged QTC. Spoke with EP clinician who reviewed the patients chart. She advised that they had plan for patient to be able to go to their facility for continued management but that he currently do not have any beds. They states that they found her to have been in polymorphic QT during the episode on Monday. They encourage close management of her electrolytes. Mag >1, K > 4 is target. Spoke with patient around her end of life wishes. She voices that she is, 86 and does not want to have heroic measures, wishes to stay DNR/DNI. VBG concerning for pH of 7.26, pCO2 72, HCO3 33. Will start on bipap. Paient feeling anxious with bipap, given small dose of ativan. Contacted by lab, patient has troponin of 197. She is on 5mg Eliquis BID. She is not having any CP. BNP elevated >28413. JARRETT with creatinine of 2.9 up from baseline of 1.9. Will call EP again for another consult. Consulted with EP again. He recommended keeping the patient on her current medications, they do not have further recommendations aside from continued monitoring of her electrolytes as she is diuresed. He recommended speaking [facility] cardiology as they will be admitting provider. Spoke with cardiology at . He recommends continuing to trend her troponins. He advised continuing to diurese. Advised trying to interigate her devise if possible. If CP treat empirically as NSTEMI but advised sounds demand related associated with fluid overload and possible dysrrhythmia. Advised holding the diltiazem, continue with metoprolol. Consulted with hospitalist who agrees to admission. Patient and family in agreement with this plan. Plan to transfer to once bed available. Patient transferred to ICU. HPI General Date/Time Provider Initiated Documentation: 01/21/22 16:07. Limitations to Documentation: no limitations. Information obtained by: patient, family, RN notes reviewed and old records reviewed. History of Present Illness 86 year old F presents to the emergency department with the chief complaint of SOB, with intensity rated at 4 (states that it has waxed/waned). Quality is described as other (patient denies any pain), and is localized to the chest. Patient started experiencing this day(s) and it has been constant. No relieving factors improve symptom(s), No exacerbating factors reported . Patient notes no other symptoms.. Patient did receive the following treatments prior to arrival, none (on home O2 at baseline) Related Data Home Medications Medication Instructions Recorded Confirmed atorvastatin 20 mg tablet (Lipitor) 20 mg PO HS 12/23/14 01/21/22 nitroglycerin 0.4 mg sublingual 1 tab sublingual Q5MX3 PRN 12/23/14 01/21/22 tablet (Nitrostat) potassium chloride 10 mEq 10 meq PO DAILY 12/23/14 01/21/22 tablet,extended release(part/cryst) (Klor-Con M) vitamin E 268 mg (400 unit) capsule 400 unit PO DAILY 12/23/14 01/21/22 apixaban 5 mg tablet (Eliquis) 2.5 tab PO BID 11/13/15 01/21/22 ascorbic acid (vitamin C) 500 mg 500 mg PO DAILY 04/04/16 01/21/22 capsule,extended release (Vitamin C) cranberry fruit 500 mg chewable 500 mg PO DAILY 04/04/16 01/21/22 tablet acetaminophen 325 mg tablet 650 mg PO BID PRN 05/09/16 01/21/22 (Tylenol) nystatin 100,000 unit/gram topical 1 applic topical BID 05/09/16 01/21/22 cream disposable gloves (Vinyl Gloves) 05/11/16 01/21/22 inhalational spacing device 05/11/16 01/21/22 (Aerochamber MV spacer) fluticasone propionate 115 2 puff inhalation BID 02/26/19 01/21/22 mcg-salmeterol 21 mcg/actuation HFA inhaler (Advair HFA) torsemide 100 mg tablet 50 - 100 mg PO DAILY 04/13/20 01/21/22 bisacodyl 10 mg rectal suppository 10 mg ND DAILY PRN 01/12/21 01/21/22 (Dulcolax (bisacodyl)) metoprolol succinate 25 mg 25 mg PO DAILY 01/12/21 01/21/22 tablet,extended release 24 hr empagliflozin 10 mg tablet 10 mg PO DAILY 10/28/21 01/21/22 (Jardiance) albuterol sulfate 90 mcg/actuation 2 puff inhalation Q4H PRN 11/24/21 01/21/22 aerosol inhaler (ProAir HFA) clotrimazole 1 % topical cream 1 applic topical BID 11/24/21 01/21/22 ipratropium 0.5 mg-albuterol 3 mg 3 ml inhalation TID 11/24/21 01/21/22 (2.5 mg base)/3 mL nebulization soln mometasone 50 mcg/actuation nasal 1 spray intranasal DAILY 11/24/21 01/21/22 spray sacubitril 49 mg-valsartan 51 mg 1 tab PO BID 11/24/21 01/21/22 tablet (Entresto) cefpodoxime 100 mg tablet 100 mg PO BID 7 days #14 tabs 01/19/22 01/21/22 Previous Rx's Medication Instructions Recorded cefpodoxime 100 mg tablet 100 mg PO BID 7 days #14 tabs 01/19/22 Allergies Allergy/AdvReac Type Severity Reaction Status Date / Time aspirin AdvReac Mild Unverified 11/24/21 12:28 erythromycin base AdvReac Mild Unverified 11/24/21 12:28 lisinopril AdvReac Mild Unverified 11/24/21 12:28 General Stated Complaint: SOB KARLA: 2 Review of Systems Constitutional Constitutional: Reports as per HPI, Denies chills, Denies fever(s), Denies headache(s), Denies lethargy and Denies poor appetite Eyes Eyes: Denies change in vision ENT Ears, Nose, Mouth, and Throat: Denies dizziness and Denies headache(s) Cardiovascular Cardiovascular: Reports as per HPI Respiratory Respiratory: Reports as per HPI, Denies cough, Denies pain on inspiration and Denies pain with cough Gastrointestinal Gastrointestinal: Reports as per HPI, Denies abdominal pain, Denies diarrhea, Denies nausea and Denies vomiting Musculoskeletal Musculoskeletal: Reports as per HPI and Denies back pain Integumentary/Breasts Skin/Breast: Reports as per HPI and Denies rash Neurologic Neurologic: Reports as per HPI, Denies dizziness and Denies headache(s) PFSH All Active Problems (Updated 01/21/22 @ 23:24 by MICA De Jesus) JARRETT (acute kidney injury) (Acute) NSTEMI (non-ST elevated myocardial infarction) (Acute) Influenza (Acute) CKD (chronic kidney disease) (Chronic) Cellulitis of right lower extremity (Acute) Atrial fibrillation (Acute) COPD (chronic obstructive pulmonary disease) (Chronic) CHF (congestive heart failure) (Chronic) Primary osteoarthritis of right knee (Acute 05/01/17) Steroid injection: 10/25/21; 04/12/21; 07/13/2020; 04/13/2020; 11/29/18; 06/25/2018; 05/01/17; 11/02/16; 04/04/16 ZILRETTA: 07/19/21 Primary osteoarthritis of left knee (Acute 08/13/15) Steroid injection: 10/25/21; 04/12/21; 04/13/2020; 11/29/18; 06/25/2018; 12/27/17; 08/21/17; 05/01/17; 11/02/16; 04/04/16; 08/13/15 Synvisc injection: 07/13/2020; 11/01/17 ZILRETTA: 07/19/21 UTI (urinary tract infection) (Acute) Generalized weakness (Acute) Dehydration (Acute) Hyperglycemia (Acute) Chest pain (Acute) COPD exacerbation (Acute) Hypokalemia (Acute) Constipation (Acute) Social History Smoking/Tobacco Use Status: Former Tobacco Use Smoking risk assessment performed?: Yes Alcohol Intake: current Alcohol Intake frequency: holidays/special occasions only Alcohol type: beer Drug use: Never Substance use type: does not use Current gender identity: female Do you feel safe at home: Yes Do you feel safe in your relationship?: Yes History History Para 2 Hx # Term Pregnancies Multiple births Hx # Pregnancies Ectopic pregnancies AB induced Hx Number of Living Children AB spontaneous Exam Const General: cooperative, healthy appearing, comfortable, no acute distress and well developed Nutritional Appearance: average body habitus and well nourished Orientation: alert, awake and oriented x3 HENMT Head: normal to inspection Ears: hearing grossly normal bilaterally Mouth: moist mucous membranes Chest Chest: normal inspection of the chest, normal palpation of entire chest wall and no crepitus Resp Effort & Inspection: normal respiratory effort, able to speak in complete sentences and no respiratory distress Auscultation: clear to auscultation bilaterally, no rales, no rhonchi and no wheezes Cardio Rate: regular rate Rhythm: regular rhythm Heart Sounds: S1 normal and S2 normal GI Inspection: normal to inspection, no edema and non-distended Palpation: soft, no hepatosplenomegaly, not firm, no guarding, not rigid and nontender Auscultation: normal bowel sounds Back/Spine/Pelvis Back: no CVA tenderness Thoracic/Lumbar Spine: thoracic and lumbar spine normal to inspection Skin General skin exam: no rashes or lesions noted Trauma: no lacerations or abrasions Neuro General: patient alert, patient awake and patient oriented x3 Cognition: normal cognition Speech: speech normal Gait: normal gait Extrem General: normal to inspection, capillary refill normal, no pedal edema, no calf tenderness and normal gait Psych Appearance: grossly normal and well kempt Mental Status: mental status grossly normal Speech and Movement: speech and movement normal Course Vital Signs Vital signs: Vital Signs Temperature 36.9 C 01/21/22 15:44 Pulse 73 01/21/22 15:44 Respiratory Rate 61 H 01/21/22 15:44 Blood Pressure 156/65 H 01/21/22 15:44 Pulse Oximetry 86 L 01/21/22 15:44 Temperature 36.9 C 01/21/22 15:44 Pulse 73 01/21/22 15:44 Respiratory Rate 61 H 01/21/22 15:44 Blood Pressure 156/65 H 01/21/22 15:44 Blood Pressure Position Sitting 01/21/22 15:44 Pulse Oximetry 86 L 01/21/22 15:44 Oxygen Delivery Method Nasal Cannula 01/21/22 15:44 Oxygen Flow Rate 4 01/21/22 15:44 Pain Level 0 01/21/22 15:44
--- NOTE | 2022-01-21 16:15 | DI.RAD_ITS ---
Exam(s) XR PORTABLE CHEST AP EXAM: XR PORTABLE CHEST AP CLINICAL HISTORY: SOB. TECHNIQUE: 2D digital imaging was performed. COMPARISON: CR,XR XR PORTABLE CHEST AP from 01/19/2022 FINDINGS: Single AP portable view. Left subclavian bipolar pacemaker again noted. Cardiomegaly again noted. Mediastinum unchanged. Pulmonary venous hypertension pattern again noted but no airspace pulmonary edema. However, there appears to be a density behind the left side of the heart which may be a new infiltrat e. IMPRESSION: Mild improvement pulmonary congestion but there is a density behind the left side of the heart noted which may represent new infiltrate. Recommend nonportable PA and lateral views when clinically possi ble.. DATA REPOSITORY: RADIATION DOSE DELIVERED:
[2022-01-21 17:05] LABS: BE (Venous) 5 mmol/L (-2-3); HCO3 (Venous) 33 mmol/L (23-28); O2 Sat (Venous) 38 %; TCO2 (Venous) 30 mmol/L (24-29); pH (Venous) 7.26 (7.31-7.41); pO2 (Venous) 25 mmHg
[2022-01-21 17:06] LABS: Abs Immature Grans 0.04 10^3/uL (0.0-0.06); Absolute Basophil Count 0.06 10^3/uL (0.0-0.2); Absolute Eosinophil Count 0.01 10^3/uL (0.0-0.7); Absolute Lymphocyte Count 0.81 10^3/uL (1.2-3.4); Absolute Monocyte Count 1.01 10^3/uL (0.1-0.8); Absolute Neutrophil Count 6.13 10^3/uL (1.2-6.7); Basophils % 0.7; Eosinophils % 0.1; HCT 43.6 % (36.0-46.0); HGB 13.4 g/dL (11.2-15.7); Immature Grans % 0.5; MCH 28.8 pg (27.0-33.0); MCHC 30.7 % (32.0-36.0); MCV 94 fL (80-95); MPV 10.5 fL (8.0-11.0); Monocytes % 12.5; Neutrophils % 76.2; Platelet Count 249 10^3/uL (130-400); RBC 4.65 10^6/uL (3.93-5.22); RDW 14.3 % (11.7-14.6); RDW-SD 49.1 fL; WBC 8.06 10^3/uL (4.4-10.8)
[2022-01-21 17:07] LABS: pCO2 (Venous) 72 mmHg (41-51)
[2022-01-21] MEDS: Albuterol/Ipratropium 3 ML UPD VIAL UPD ×2 (17:26→22:42)
[2022-01-21] MEDS: Furosemide 40 MG/4 ML VIAL IVP (17:29)
[2022-01-21 17:31] LABS: ALT 20 U/L (14-59); AST 37 U/L (15-37); Albumin 3.3 g/dL (3.4-5.0); Alkaline Phosphatase 70 U/L (46-116); Anion Gap 8.9 mmol/L (3-11); BUN 50 mg/dL (7-18); Bilirubin, Total 0.4 mg/dL (0.2-1.0); CO2 32.1 mmol/L (21.0-32.0); CREATININE 2.9 mg/dL (0.55-1.02); Chloride 92 mmol/L (98-107); Estimated GFR 15.39 (mL/min/1.73m2); Glucose 98 mg/dL (74-106); Magnesium 2.9 mg/dL (1.8-2.4); Potassium 4.6 mmol/L (3.5-5.1); Sodium 133 mmol/L (136-145); Total Protein 7.8 g/dL (6.4-8.2)
[2022-01-21 17:32] LABS: NT-proBNP > 35000 pg/mL (<300); Troponin I 197 ng/L (<or=60)
--- NOTE | 2022-01-21 17:36 | DI.VRAD_ITS ---
PROCEDURE INFORMATION: Exam: XR Chest Exam date and time: 01/21/2022 4:50 PM Age: 86 years old Clinical indication: Shortness of breath; Patient HX: SOB TECHNIQUE: Imaging protocol: Radiologic exam of the chest. Views: 1 view. COMPARISON: XR PORTABLE CHEST AP 01/19/2022 9:07 PM FINDINGS: Tubes, catheters and devices: Cardiomegaly and transvenous pacemaker leads Lungs: Opacity in bases may represent atelectasis or pneumonia.. Pleural spaces: There may be mild left pleural effusion. Heart/Mediastinum: Cardiomegaly Bones/joints: Unremarkable. Other findings: The patient is leaning to the left IMPRESSION: 1. Opacity in bases may represent atelectasis or pneumonia.. 2. There may be mild left pleural effusion. Dictated and Authenticated by: Chacho Seo MD. Ordering:BRICE Kovacs MD
[2022-01-21] MEDS: LORazepam 2 MG/ML VIAL ×2 (18:03→18:53)
[2022-01-21] MEDS: Normal Saline Flush 10 ML SYR IVP ×2 (18:50→22:44)
[2022-01-21 19:26] LABS: Troponin I 168 ng/L (<or=60)
--- NOTE | 2022-01-21 19:47 | NUR.NOTE ---
Patient sleeping at this time. No distress noted. Will continue to monitor.
[2022-01-21] MEDS: methylPREDNISolone SUCC 125 MG VIAL IVP (19:56)
--- NOTE | 2022-01-21 20:58 | NUR.NOTE ---
Patient in bed, sleeping. No distress noted. Will continue to monitor.
--- NOTE | 2022-01-21 21:32 | W.PM.HP.N ---
Date of service: 01/21/22 Time of Service: 21:32 Assessment and Plan Assessment and plan (1) Influenza: Start date: 01/21/22 Status: Acute Assessment and plan: This is 86-year-old lady with multiple respiratory and cardiovascular issues presenting with worsening shortness of breath and being treated for exacerbation of COPD but also being positive for flu she was started on Tamiflu. This may have been the precipitating infection with her decompensation recently with syncope prior to admission, UTI which is being treated effectively and her cardiac dysrhythmia with polymorphic VT reported to her as seen by novelty chain maker at [facility] with the patient have a pacemaker but not have a defibrillator. She is a DNR/DNI. She would be treated aggressively for reversible problems and for now transfer is not being entertained. (2) NSTEMI (non-ST elevated myocardial infarction): Start date: 01/21/22 Status: Acute Assessment and plan: Patient's troponins are elevated but only in the 150 range and appear to be trending down. She is on Eliquis and heparin was not initiated. She was not started on antiplatelet therapy. She also appears to have exacerbation of CHF with recent fluid bolus and she will be diuresed. Her usual antihypertensive including beta-laura will be advanced as needed. She is on low dose statin which will be continued. Patient is open to transfer and cardiovascular intervention but there is no availability of beds and whether may not permit safe transfer. She is a DNR/DNI protein palliative care. (3) COPD exacerbation: Start date: 01/21/22 Status: Acute Assessment and plan: BiPAP with O2 supplement and trend VBG's. Patient does have hypercarbia respiratory failure as well. This may be exacerbated by her CHF exacerbation and diuresis may help. Solu-Medrol IV will be continued. Nebulizer treatments aggressively. Patient is on Rocephin for a UTI but no evidence of infiltrate on imaging to warrant expanded antibiotic therapy. (4) CHF (congestive heart failure): Status: Chronic Assessment and plan: Exacerbated with recent events and patient will be placed on IV diuresis holding her high-dose daily torsemide. CKD is slightly exacerbated as well and this will be trended while diuresing. She may need gentle IV fluids if not eating and drinking while sedated. She does have a reduced left ventricular ejection fraction last reported at 46% in May 2020. (5) Atrial fibrillation: Status: Acute Assessment and plan: Chronic with mostly paced rhythm on Eliquis which will be continued. Advance beta-blockade for blood pressure control. (6) UTI (urinary tract infection): Start date: 01/19/22 Status: Acute Assessment and plan: Patient was on cefpodoxime and this will be covered with Rocephin for now with E. coli growing on urine culture but sensitivities to follow. (7) CKD (chronic kidney disease): Status: Chronic Assessment and plan: Slightly exacerbated but to be trended with avoiding aggressive IV hydration because of CHF and respiratory status exacerbation. Prognosis poor with cancer treatment options as presented. She is a DNR/DNI. 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 History of Present Illness History of Present Illness Chief Complaint: Dyspnea with recent syncopal episode and UTI Narrative: This is an 86-year-old female patient with history of chronic atrial fibrillation and pacemaker in place without defibrillator who presented with a syncopal episode 2 days prior to this presentation and was treated with IV hydration as well as initiating cefpodoxime for UTI. At home the patient did not have any further syncopal episodes but is becoming more short of breath. She lives with her daughter. The patient was called by the novelty chain maker at [facility] that her pacemaker did show a 37-second pause but further investigations revealed that she did have a run of polymorphic VT. She was advised to go to the ED for evaluation and possible transfer for interventions. Patient was not necessarily more short of breath to prompt her ED visit but in the ED was extremely short of breath and tripoding requiring BiPAP and becoming more agitated requiring Ativan which sedated her. When I saw the patient she was sedated on BiPAP and abdominal breathing appeared to struggle but oxygenating well. Imaging evaluation did reveal mostly paced rhythm and her troponins were elevated with a non-STEMI being entertained and patient open to transfer for cardiac catheterization though she is a DNR/DNI and also approaching palliative care with multiorgan failure and disease. 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 She was admitted to the ICU and was to be continued on Eliquis which she was on for atrial fibrillation and did not receive antiplatelet therapy but this to be determined after review of her case with cardiology in the morning. Cardiovascular she appears to be stable and mostly she is in respiratory distress with COPD exacerbation which is being treated aggressively. Patient also had a positive flu screening and was placed on Tamiflu. The acute influenza infection may have been what prompted her respiratory decompensation. IV Solu-Medrol was initiated and patient does have BiPAP with oxygen support and nebulizers. VBG did reveal hypercarbia with the patient also having hypoxemia upon presentation. Her BNP was markedly elevated and it was thought that she would may have heart failure exacerbated as well with diuretics given in the ED. Patient is chronically on high-dose torsemide at home and IV Lasix will be continued with a Jiménez catheter placed to monitor fluids and for comfort. Patient is a DNR/DNI. She was not able to offer further history being sedated at the time of my exam. Review of Systems Narrative: 13 point review of systems otherwise unrevealing or unobtainable with patient being sedated. She is obese and short stature and appears to be deconditioned with little activity at home though she lives independently with her daughter. PFSH All Active Problems JARRETT (acute kidney injury) (Acute) NSTEMI (non-ST elevated myocardial infarction) (Acute) Influenza (Acute) CKD (chronic kidney disease) (Chronic) Cellulitis of right lower extremity (Acute) Atrial fibrillation (Acute) COPD (chronic obstructive pulmonary disease) (Chronic) CHF (congestive heart failure) (Chronic) Primary osteoarthritis of right knee (Acute 05/01/17) Steroid injection: 10/25/21; 04/12/21; 07/13/2020; 04/13/2020; 11/29/18; 06/25/2018; 05/01/17; 11/02/16; 04/04/16 ZILRETTA: 07/19/21 Primary osteoarthritis of left knee (Acute 08/13/15) Steroid injection: 10/25/21; 04/12/21; 04/13/2020; 11/29/18; 06/25/2018; 12/27/17; 08/21/17; 05/01/17; 11/02/16; 04/04/16; 08/13/15 Synvisc injection: 07/13/2020; 11/01/17 ZILRETTA: 07/19/21 UTI (urinary tract infection) (Acute) Generalized weakness (Acute) Dehydration (Acute) Hyperglycemia (Acute) Chest pain (Acute) COPD exacerbation (Acute) Hypokalemia (Acute) Constipation (Acute) Social History Smoking/Tobacco Use Status: Former Tobacco Use Smoking risk assessment performed?: Yes Alcohol Intake: current Alcohol Intake frequency: holidays/special occasions only Alcohol type: beer Drug use: Never Substance use type: does not use Current gender identity: female Do you feel safe at home: Yes Do you feel safe in your relationship?: Yes History History Para 2 Hx # Term Pregnancies Multiple births Hx # Pregnancies Ectopic pregnancies AB induced Hx Number of Living Children AB spontaneous Meds Allergies and Home Medications Allergies Allergy/AdvReac Type Severity Reaction Status Date / Time aspirin AdvReac Mild Unverified 11/24/21 12:28 erythromycin base AdvReac Mild Unverified 11/24/21 12:28 lisinopril AdvReac Mild Unverified 11/24/21 12:28 Home Medications Medication Instructions Recorded Confirmed Type atorvastatin 20 mg tablet (Lipitor) 20 mg PO HS 12/23/14 01/21/22 History nitroglycerin 0.4 mg sublingual 1 tab sublingual [id number] PRN 12/23/14 01/21/22 History tablet (Nitrostat) potassium chloride 10 mEq 10 meq PO DAILY 12/23/14 01/21/22 History tablet,extended release(part/cryst) (Klor-Con M) vitamin E 268 mg (400 unit) capsule 400 unit PO DAILY 12/23/14 01/21/22 History apixaban 5 mg tablet (Eliquis) 2.5 tab PO BID 11/13/15 01/21/22 History ascorbic acid (vitamin C) 500 mg 500 mg PO DAILY 04/04/16 01/21/22 History capsule,extended release (Vitamin C) cranberry fruit 500 mg chewable 500 mg PO DAILY 04/04/16 01/21/22 History tablet acetaminophen 325 mg tablet 650 mg PO BID PRN 05/09/16 01/21/22 History (Tylenol) nystatin 100,000 unit/gram topical 1 applic topical BID 05/09/16 01/21/22 History cream disposable gloves (Vinyl Gloves) 05/11/16 01/21/22 History inhalational spacing device 05/11/16 01/21/22 History (Aerochamber MV spacer) fluticasone propionate 115 2 puff inhalation BID 02/26/19 01/21/22 History mcg-salmeterol 21 mcg/actuation HFA inhaler (Advair HFA) torsemide 100 mg tablet 50 - 100 mg PO DAILY 04/13/20 01/21/22 History bisacodyl 10 mg rectal suppository 10 mg MT DAILY PRN 01/12/21 01/21/22 History (Dulcolax (bisacodyl)) metoprolol succinate 25 mg 25 mg PO DAILY 01/12/21 01/21/22 History tablet,extended release 24 hr empagliflozin 10 mg tablet 10 mg PO DAILY 10/28/21 01/21/22 History (Jardiance) albuterol sulfate 90 mcg/actuation 2 puff inhalation Q4H PRN 11/24/21 01/21/22 History aerosol inhaler (ProAir HFA) clotrimazole 1 % topical cream 1 applic topical BID 11/24/21 01/21/22 History ipratropium 0.5 mg-albuterol 3 mg 3 ml inhalation TID 11/24/21 01/21/22 History (2.5 mg base)/3 mL nebulization soln mometasone 50 mcg/actuation nasal 1 spray intranasal DAILY 11/24/21 01/21/22 History spray sacubitril 49 mg-valsartan 51 mg 1 tab PO BID 11/24/21 01/21/22 History tablet (Entresto) cefpodoxime 100 mg tablet 100 mg PO BID 7 days #14 tabs 01/19/22 01/21/22 Rx Exam Narrative Exam Narrative: General: Patient is short stature and obese, sedated and appearing in moderate to severe distress with abdominal breathing on BiPAP and oxygenating well. She is not oriented to person, place or time. She does respond to slightly painful tactile stimuli. HEENT: Normocephalic, coarsened facial features, eyes with pupils equal and react to light symmetrically, extraocular movement tact and sclera anicteric. Oropharynx with dry mucosa. Neck: Supple without JVD. Back: Not examined the patient supine. Lungs: Poor aeration with inspiratory coarse crackles in the right and decreased aeration more on the left with no crackles. Increased expiratory phase and expiratory wheeze. No rhonchi. Inspiration is augmented by BiPAP. Patient is abdominal breathing and appears to have slight intercostal retractions with inspiration. Chest is moving symmetrically. Chest: Palpable subcutaneous pacemaker on upper chest. Heart: Distant heart sounds with regular rhythm and no appreciable murmur or gallop. Breast: Exam deferred. Abdomen: Obese contour, soft and nontender to palpation with no palpable hepatosplenomegaly. Bowel sounds are positive all quadrants. Genitalia/rectal: Exam deferred. Extremities: Without clubbing, cyanosis or pitting edema. 2+ nonpitting edema both lower extremities. Skin: Pale, warm and dry. Neuro: Cranial nerves II through XII appear to be grossly intact, no focal motor deficits but patient sedated and not moving voluntarily and not following commands. Psych: Obtunded with respiratory failure and on BiPAP with sedation. Memory testing not possible. Baseline is normal mood and affect though there may be an element of denial with patient and family on her progressive multiorgan disease processes. Results Imaging Imaging Studies: Exam: XR Chest Exam date and time: 01/21/2022 4:50 PM Age: 86 years old Clinical indication: Shortness of breath; Patient HX: SOB TECHNIQUE: Imaging protocol: Radiologic exam of the chest. Views: 1 view. COMPARISON: XR PORTABLE CHEST AP 01/19/2022 9:07 PM FINDINGS: Tubes, catheters and devices: Cardiomegaly and transvenous pacemaker leads Lungs: Opacity in bases may represent atelectasis or pneumonia.. Pleural spaces: There may be mild left pleural effusion. Heart/Mediastinum:? Cardiomegaly Bones/joints: Unremarkable. Other findings: The patient is leaning to the left IMPRESSION: 1. Opacity in bases may represent atelectasis or pneumonia.. 2. There may be mild left pleural effusion. EXAM:? CT ABDOMEN ? PELVIS W CLINICAL HISTORY: ? nasuea vomiting ? TECHNIQUE:? Imaging Protocol: Axial computed tomography images with coronal and sagittal reformatted images were created and reviewed CONTRAST MATERIAL:? Intravenous: Omnipaque 350 Contrast volume:100 mL Oral: No COMPARISON:? CT CT ABDOMEN ? PELVIS W from 03/01/2021 FINDINGS: ?The examination is limited due to patient motion artifact. ABDOMEN: Lung Bases: Cardiomegaly.? There is a small hiatal hernia.? There is a stable nodule in the right lung base. Liver: Normal density. There are stable hepatic cysts.? No suspicious hepatic masses are seen.? Portal, Superior Mesenteric, and Splenic Veins: Unremarkable.? Gallbladder and Biliary Tract: No radiodense calculus or dilation. Pancreas: Normal density, no abnormal calcifications or inflammatory process. Spleen: Normal. Adrenals: No masses seen. Kidneys: There is again seen atrophy of the right kidney.? No radiodense stones or obstructive uropathy. No masses seen. Abdominal Aorta: Abdominal portion non-dilated. Atherosclerosis is present. Bowel: No obstruction or bowel wall thickening. Appendix is unremarkable. There is diverticulosis in the colon, but no evidence of acute diverticulitis.? There is again seen an anterior abdominal wall hernia, located superior to the anterior abdominal wall repair, containing a unremarkable loop of small bowel.? No evidence of obstruction is seen. Peritoneal Cavity: No ascites, collection or mesenteric inflammatory response.? No free air. Lymph Nodes: Within normal limits. Bones: Within normal limits for the patient's age.? There is a stable mild compression of the T12 vertebral body. Soft Tissues: Unremarkable. PELVIS: Bladder: Symmetric distention, no gross wall thickening. Reproductive Organs: Status post hysterectomy.? Lymph Nodes: Within normal limits. Bones: Within normal limits for the patient's age.? IMPRESSION: 1. No acute abdominal or pelvic process. 2. Stable chronic findings as described above.? Labs Result diagrams: 01/22/22 06:03 01/22/22 06:03 Labs: Laboratory Results - last 24 hr 01/21/22 01/21/22 01/21/22 17:00 17:00 17:00 WBC 8.06 RBC 4.65 Hgb 13.4 Hct 43.6 MCV 94 MCH 28.8 MCHC 30.7 L RDW 14.3 Plt Count 249 MPV 10.5 Immature Gran % 0.5 Neutrophils % 76.2 Lymphocytes % 10.0 Monocytes % 12.5 Eosinophils % 0.1 Basophils % 0.7 Nucleated RBC % 0.0 Absolute Neutrophils 6.13 Absolute Lymphocytes 0.81 L Absolute Monocytes 1.01 H Absolute Eosinophils 0.01 Absolute Basophils 0.06 VBG pH 7.26 L VBG pCO2 72 H* VBG pO2 25 VBG HCO3 33 H VBG Total CO2 30 H VBG O2 Saturation 38 VBG Base Excess 5 H Sodium 133 L Potassium 4.6 D Chloride 92 L Carbon Dioxide 32.1 H Anion Gap 8.9 BUN 50 H Creatinine 2.9 H D Est GFR (CKD-EPI 2020) 15.39 Glucose 98 Calcium 9.0 Magnesium 2.9 H Total Bilirubin 0.4 AST 37 ALT 20 Alkaline Phosphatase 70 Troponin I 197 H* NT-Pro-B Natriuret Pep > 01407 H Total Protein 7.8 Albumin 3.3 L 01/21/22 18:57 WBC RBC Hgb Hct MCV MCH MCHC RDW Plt Count MPV Immature Gran % Neutrophils % Lymphocytes % Monocytes % Eosinophils % Basophils % Nucleated RBC % Absolute Neutrophils Absolute Lymphocytes Absolute Monocytes Absolute Eosinophils Absolute Basophils VBG pH VBG pCO2 VBG pO2 VBG HCO3 VBG Total CO2 VBG O2 Saturation VBG Base Excess Sodium Potassium Chloride Carbon Dioxide Anion Gap BUN Creatinine Est GFR (CKD-EPI 2020) Glucose Calcium Magnesium Total Bilirubin AST ALT Alkaline Phosphatase Troponin I 168 H* NT-Pro-B Natriuret Pep Total Protein Albumin Last Vital Signs Temp 36.9 C 01/21/22 15:44 Pulse 62 01/21/22 20:31 Resp 27 H 01/21/22 20:31 BP 157/71 H 01/21/22 20:31 Pulse Ox 94 01/21/22 20:31
[2022-01-21 22:21] LABS: COVID-19 PCR Negative (Negative); Influenza A PCR Positive (Negative); Influenza B PCR Negative (Negative); RSV PCR Negative (Negative)
[2022-01-21 22:23] LABS: Source Nasopharynx
[2022-01-21] MEDS: cefTRIAXone 1 GM/50 ML BAG IVPB (22:42)
[2022-01-22] VITALS (52 sets, daily range): BP systolic 84–155; BP diastolic 38–114; PULSE 59–202; RESP 1–35; TEMP 35.4–37.3; O2SAT 90–99
--- NOTE | 2022-01-22 | DI.US_ITS ---
Exam(s) US RENAL EXAM: US RENAL CLINICAL HISTORY: JARRETT on CKD. TECHNIQUE: Hogue scale, color and spectral Doppler were used. COMPARISON: No exams were available for comparison FINDINGS: The exam is somewhat limited by patient's inability to breath hold. Renal size in cm: Right: 7.4 left: 10.5 Echogenicity: Normal Hydronephrosis: No Cyst or mass: No Nephrolithiasis: No Bladder:empty, not evaluated IMPRESSION: Stable appearance of atrophic right kidney. No hydronephrosis. DATA REPOSITORY:
[2022-01-22 03:10] LABS: Troponin I 155 ng/L (<or=60)
[2022-01-22] MEDS: methylPREDNISolone SUCC 125 MG VIAL 60 MG IVP ×3 (04:31→20:25)
[2022-01-22] MEDS: Albuterol/Ipratropium 3 ML UPD VIAL UPD ×3 (04:31→17:27)
[2022-01-22] MEDS: Metoprolol 12.5 MG TAB PO ×3 (06:20→21:35)
[2022-01-22 06:53] LABS: HCT 40.4 % (36.0-46.0); HGB 12.3 g/dL (11.2-15.7); MCH 28.5 pg (27.0-33.0); MCHC 30.4 % (32.0-36.0); MCV 94 fL (80-95); Platelet Count 190 10^3/uL (130-400); RBC 4.31 10^6/uL (3.93-5.22); RDW 14.3 % (11.7-14.6); RDW-SD 49.2 fL; WBC 4.85 10^3/uL (4.4-10.8)
[2022-01-22 07:22] LABS: TSH (W/Ref FT4) 0.58 uIU/mL (0.36-3.74)
[2022-01-22 07:25] LABS: ALT 18 U/L (14-59); AST 42 U/L (15-37); Albumin 2.7 g/dL (3.4-5.0); Alkaline Phosphatase 56 U/L (46-116); Anion Gap 13.7 mmol/L (3-11); BUN 60 mg/dL (7-18); Bilirubin, Total 0.4 mg/dL (0.2-1.0); CO2 28.3 mmol/L (21.0-32.0); CREATININE 3.4 mg/dL (0.55-1.02); Calcium 8.6 mg/dL (8.5-10.1); Chloride 94 mmol/L (98-107); Estimated GFR 12.71 (mL/min/1.73m2); Glucose 95 mg/dL (74-106); Potassium 5.2 mmol/L (3.5-5.1); Sodium 136 mmol/L (136-145); Total Protein 6.8 g/dL (6.4-8.2)
[2022-01-22 07:31] LABS: Troponin I 122 ng/L (<or=60)
--- NOTE | 2022-01-22 07:45 | RT.EKG_ITS ---
APPROVED REPORT Exam: Resting ECG Reason for Exam: NSTEMI Patient Location: I HR:64 bpm ECG Measurements Heart Rate 64 AXIS IA 196 P -77 QRSd 155 QRS 117 QT 604 T 123 QTc 624 Conclusion Ventricular-paced complexes...other complexes also detected No further analysis attempted due to paced rhythm
--- NOTE | 2022-01-22 08:16 | NUR.NOTE ---
EKG is completed.Nursing Note:
[2022-01-22] MEDS: Apixaban 5 MG TAB 2.5 MG PO (08:48)
[2022-01-22] MEDS: Ascorbic Acid 500 MG TAB PO (08:49)
[2022-01-22] MEDS: Clotrimazole 1% 15 GM TUBE TP ×2 (08:49→20:25)
[2022-01-22] MEDS: Furosemide 100 MG/10 ML VIAL 60 MG IVP ×2 (08:49→15:45)
[2022-01-22 08:51] LABS: BE (Venous) 0 mmol/L (-2-3); HCO3 (Venous) 27 mmol/L (23-28); O2 Sat (Venous) 69 %; TCO2 (Venous) 26 mmol/L (24-29); pCO2 (Venous) 60 mmHg (41-51); pH (Venous) 7.27 (7.31-7.41); pO2 (Venous) 37 mmHg
[2022-01-22] MEDS: Normal Saline Flush 10 ML SYR IVP ×4 (08:51→15:45)
[2022-01-22] MEDS: Nystatin CREAM 30 GM TUBE TP ×2 (08:51→20:25)
[2022-01-22] MEDS: Pantoprazole 40 MG VIAL IVP (08:52)
--- NOTE | 2022-01-22 09:15 | NUR.NOTE ---
Patient is propped up in bed so that she can begin feeding herself some eggs, toast, and tea. Patient is alert and able to feed herself her breakfast.Nursing Note:
--- NOTE | 2022-01-22 09:17 | NUR.NOTE ---
Patient's EKG is faxed to [facility].Nursing Note:
--- NOTE | 2022-01-22 10:48 | NUR.NOTE ---
Renal ultrasound commences.Nursing Note:
[2022-01-22] MEDS: Oseltamivir 30 MG CAP PO (11:00)
--- NOTE | 2022-01-22 11:27 | NUR.NOTE ---
RN places pattient back on BIPAP aat 6 of support, 8 of peep and 40% FIO2.Nursing Note:
--- NOTE | 2022-01-22 11:29 | NUR.NOTE ---
Patient dislodges BIPAP mask; same is reconnected.Nursing Note:
--- NOTE | 2022-01-22 11:36 | DI.VRAD_ITS ---
PROCEDURE INFORMATION: Exam: US Retroperitoneal; Complete; Kidneys and Bladder Exam date and time: 01/22/2022 10:23 AM Age: 86 years old Clinical indication: Condition or disease; Other: Anthony on ckd; Patient HX: + for flu TECHNIQUE: Imaging protocol: Real-time ultrasound of the retroperitoneum with image documentation. Complete exam focused on the kidneys and bladder. COMPARISON: CT ABDOMEN PELVIS W 01/19/2022 10:33 PM FINDINGS: Right kidney: Small, measuring 7.4 cm sagittal x 4 cm AP x 3.7 cm TRV. There is marked diffuse cortical thinning. There is no hydronephrosis. No shadowing calculi or masses are seen. Left kidney: Normal in size, measuring 10.5 cm sagittal x 4.9 cm AP x 4.9 cm TRV. No hydronephrosis. No shadowing calculi or masses. Urinary bladder: Completely collapsed/decompressed and could not be assessed. IMPRESSION: 1. Atrophic right kidney. 2. Unremarkable left kidney. No hydronephrosis. 3. The urinary bladder was completely collapsed and could not be assessed. Dictated and Authenticated by: Mireya Bowers MD. Ordering:MAIDA Booth MD
[2022-01-22 12:27] LABS: Anion Gap 12.1 mmol/L (3-11); BUN 64 mg/dL (7-18); CO2 26.9 mmol/L (21.0-32.0); CREATININE 3.5 mg/dL (0.55-1.02); Calcium 8.1 mg/dL (8.5-10.1); Chloride 94 mmol/L (98-107); Estimated GFR 12.28 (mL/min/1.73m2); Glucose 170 mg/dL (74-106); Potassium 4.1 mmol/L (3.5-5.1); Sodium 133 mmol/L (136-145)
--- NOTE | 2022-01-22 13:48 | NUR.NOTE ---
Patient given a popsicle and cup of apple juice.Nursing Note:
--- NOTE | 2022-01-22 15:50 | PDOC.CMIN ---
- If Service Date Differs Date of service: 01/22/22 Time of Service: 15:50 Care Management Initial Assess REASON FOR HOSPITALIZATION:: NSTEMI, CHF Exacerbation, Flu A, COPD Exacerbation. PAST MEDICAL HISTORY/PAST SURGICAL HISTORY:: All Active Problems: JARRETT (acute kidney injury) (Acute), NSTEMI (non-ST elevated myocardial infarction) (Acute), Influenza (Acute), CKD (chronic kidney disease) (Chronic), Cellulitis of right lower extremity (Acute),. Atrial fibrillation (Acute), COPD (chronic obstructive pulmonary disease) (Chronic), CHF (congestive heart failure) (Chronic), Primary osteoarthritis of right knee (Acute 05/01/17) - Steroid injection: 10/25/21; 04/12/21; 07/13/2020; 04/13/2020; 11/29/18; 06/25/2018; 05/01/17; 11/02/16; 04/04/16 - ZILRETTA: 07/19/21, Primary osteoarthritis of left knee (Acute 08/13/15) - Steroid injection: 10/25/21; 04/12/21; 04/13/2020; 11/29/18; 06/25/2018; 12/27/17; 08/21/17; 05/01/17; 11/02/16; 04/04/16; 08/13/15 - Synvisc injection: 07/13/2020; 11/01/17 - ZILRETTA: 07/19/21, UTI (urinary tract infection) (Acute), Generalized weakness (Acute), Dehydration (Acute), Hyperglycemia (Acute), Chest pain (Acute), COPD exacerbation (Acute), Hypokalemia (Acute), and Constipation (Acute). No other medical/surgical history noted in chart. PREVIOUS FUNCTIONAL STATUS/SOCIAL/FAMILY SUPPORTS:: Milagro lives in [place] with her dog and her cat in her own home. She has Choices for Care - High Highest Needs. She states she currently does not have a supervisor case loading as Sylvia, her former supervisor case loading, recently left the [facility] [employer] [place] [employer]. Milagro states her granddaughter cares for her at home 6 hours a day through [employer] and her grandson comes over on weekends to feed the animals. CURRENT FUNCTIONAL STATUS:: Milagro is lying in bed when CM comes to meet with her. She is pleasant and easily engages in conversation. She jokes that she is not prejudiced because her dog is black and her cat is white. CM will continue to follow. ADVANCE DIRECTIVES:: None on file but patient states her daughter, Beatriz Torres, is her Health Care Agent. Has patient been provided with info about the portal/API?: Yes Did the patient sign up for the portal?: No CODE STATUS:: DNR/DNI INSURANCE COVERAGE / FINANCIAL ISSUES:: Medicare and Medicaid. CURRENT HOME/COMMUNITY SERVICES/EQUIPMENT:: Oxygen through [facility], a nebulizer, MOW, lifeline, 4WW, shower chair, grab bars, and CFC High Highest Needs. PRIMARY CARE PHYSICIAN:: Aman Granado MD. POTENTIAL DISCHARGE NEEDS:: Follow up appointments with PCP, boardmarker and computer game tester. PATIENT/FAMILY EDUCATION NEEDS:: Review of discharge instructions including medications, limitations and follow up plan of care; discuss Ask Me Three. ANTICIPATED BARRIERS TO DISCHARGE:: Patient's deteriorating health. TRANSPORTATION:: To be determined as it is dependent on progress. PLAN:: Plan is undetermined at this time. Patient may require a transfer to a tertiary center for a cardiovascular intervention. CM will continue to follow.
--- NOTE | 2022-01-22 19:29 | PGE_ITS ---
Date of Service Date of service: 01/22/22 Time of Service: 10:00 Assessment and Plan Assessment and plan (1) Ventricular tachycardia, polymorphic: Status: Acute Assessment and plan: IN a patient w/ h/o prolonged QT, s/p pacemaker. Unclear reason for Vtach - was it triggered by the prolonged QT, underlying ischemia, or acute respiratory or infectious process. The patient's case was reviewed by [facility] EP who feel that the patient would benefit from transfer to [facility] for further ischemic and EP eval once bed available. (2) Acute on chronic respiratory failure with hypoxia and hypercapnia: Status: Acute Assessment and plan: Due to a combination of COPD exacerbation in setting of Influenza A and acute on chronic systolic CHF w/ LVEF of 46% per last echo in our system (05/27). Continue diuresis, steroids, BiPAP, bronchodilators. Wean BiPAP as tolerated. (3) Influenza: Start date: 01/21/22 Status: Acute Assessment and plan: Continue renally dosed tamiflu (4) NSTEMI (non-ST elevated myocardial infarction): Start date: 01/21/22 Status: Acute Assessment and plan: Discussed with cardiology. While we cannot rule out underlying ischemia, especially with Vtach at home, demand ischemia is also a possibility in setting respiratory failure, CHF, COPD exacerbations, and Vtach could have also provided some demand. Allergic to aspirin. There is no strong evidence that this is ACS. For this reason, plavix is not getting started. Will heparinize in place of eliquis. Patient will go to [facility] once there is a cardiology bed available; day hospitalist is to call back in am. (5) COPD exacerbation: Start date: 01/21/22 Status: Acute Assessment and plan: Continue to treat with BiPAP, nebs, steroids, ceftriaxone. Treat influenza with tamiflu. (6) CHF (congestive heart failure): Status: Chronic Assessment and plan: As above Last known LVEF is 46% in 05/27. Diurese. Monitor I/O's and daily weights. Qualifiers: Heart failure type: systolic Heart failure chronicity: acute on chronic Qualified Code(s): I50.23 - Acute on chronic systolic (congestive) heart failure (7) Atrial fibrillation: Status: Acute Assessment and plan: Rate controlled, chronic, on eliquis. Bridge with heparin gtt in anticipation of a possible procedure. Continue metoprolol. (8) UTI (urinary tract infection): Start date: 01/19/22 Status: Acute Assessment and plan: Due to E. COli, present on admission. Continue ceftriaxone. (9) Acute kidney injury superimposed on chronic kidney disease: Status: Acute Assessment and plan: Possibly cardiorenal. Whitfield catheter, diurese. Clinically, could not tolerate IVF. Monitor Cr. Avoid nephrotoxic drugs. (10) DVT prophylaxis: Status: Acute Assessment and plan: On therapeutic heparin gtt (11) Discharge planning issues: Status: Acute Assessment and plan: DNR/DNI. Keep in ICU. Call [facility] back in am for transfer (no beds and not listing for transfers today). Total Critical Care Time 45 minutes. Subjective Subjective Interval history since last seen: Ms Torres spent the night on BiPAP. She had only had 240 cc out in her whitfield catheter. She was switched to 2L of O2 by [place] this morning, but is going back to BiPAP now. She denied dizziness, chest pain, shortness of breath, nausea. She answered I don't know to most questions I had asked her - such as whether she would want to go to [facility], would she want to have any kind of procedures, would she want to upgrade her pacemaker to an AICD. Her case was discussed with [facility] cardiology, who did not have a bed today, but told us to call back tomorrow as they would be interested in having her for further ischemic and EP workup. We discussed that her troponin elevations could be due to the Flu A, COPD/CHF exacerbations/respiratory failure, but we cannot rule out ischemia. Because she is listed as allergic to aspirin, we decided to heparinize her rather than continue her on her eliquis. Exam Narrative Exam Narrative: General: Pleasant elderly female who is A&Ox2, [place], answers I don't know to most questions HEENT: EOMI, MMM Heart: RRR Lungs: Wheezing and rales on expiration B, abdominal breathing Abdomen: soft, nontender, nondistended Extremities: +1 BLE edema Objective Last Vital Signs Temp 36.7 C 01/22/22 15:53 Pulse 64 01/22/22 15:53 Resp 26 H 01/22/22 15:53 BP 132/51 L 01/22/22 15:03 Pulse Ox 97 01/22/22 15:03 Laboratory Results - last 24 hr 01/21/22 01/22/22 01/22/22 21:32 02:00 06:03 WBC RBC Hgb Hct MCV MCH MCHC RDW Plt Count MPV VBG pH VBG pCO2 VBG pO2 VBG HCO3 VBG Total CO2 VBG O2 Saturation VBG Base Excess Sodium Potassium Chloride Carbon Dioxide Anion Gap BUN Creatinine Est GFR (CKD-EPI 2020) Glucose Calcium Magnesium Total Bilirubin AST ALT Alkaline Phosphatase Troponin I 155 H* 122 H* Total Protein Albumin TSH 0.58 COVID-19 Source Nasopharynx SARS-CoV-2 (PCR) Negative Influenza Type A (PCR) Positive A Influenza Type B (PCR) Negative RSV (PCR) Negative 01/22/22 01/22/22 01/22/22 06:03 06:03 08:30 WBC 4.85 RBC 4.31 Hgb 12.3 Hct 40.4 MCV 94 MCH 28.5 MCHC 30.4 L RDW 14.3 Plt Count 190 MPV 11.0 VBG pH 7.27 L VBG pCO2 60 H VBG pO2 37 VBG HCO3 27 VBG Total CO2 26 VBG O2 Saturation 69 VBG Base Excess 0 Sodium 136 Potassium 5.2 H Chloride 94 L Carbon Dioxide 28.3 Anion Gap 13.7 H BUN 60 H Creatinine 3.4 H Est GFR (CKD-EPI 2020) 12.71 Glucose 95 Calcium 8.6 Magnesium 3.0 H Total Bilirubin 0.4 AST 42 H ALT 18 Alkaline Phosphatase 56 Troponin I Total Protein 6.8 Albumin 2.7 L TSH COVID-19 Source SARS-CoV-2 (PCR) Influenza Type A (PCR) Influenza Type B (PCR) RSV (PCR) 01/22/22 12:10 WBC RBC Hgb Hct MCV MCH MCHC RDW Plt Count MPV VBG pH VBG pCO2 VBG pO2 VBG HCO3 VBG Total CO2 VBG O2 Saturation VBG Base Excess Sodium 133 L Potassium 4.1 D Chloride 94 L Carbon Dioxide 26.9 Anion Gap 12.1 H BUN 64 H Creatinine 3.5 H Est GFR (CKD-EPI 2020) 12.28 Glucose 170 H Calcium 8.1 L Magnesium Total Bilirubin AST ALT Alkaline Phosphatase Troponin I Total Protein Albumin TSH COVID-19 Source SARS-CoV-2 (PCR) Influenza Type A (PCR) Influenza Type B (PCR) RSV (PCR) Objective Narrative Objective Narrative: US renal: Stable appearance of atrophic right kidney.? No hydronephrosis.
[2022-01-22] MEDS: nitroGLYcerin 0.4 MG TAB SL (19:59)
[2022-01-22 20:55] LABS: PTT Activated 30.5 sec (21.0-27.5)
[2022-01-22 21:00] LABS: Troponin I 76 ng/L (<or=60)
[2022-01-22] MEDS: Atorvastatin 20 MG TAB PO (21:35)
[2022-01-22] MEDS: cefTRIAXone 1 GM/50 ML BAG IVPB (21:35)
[2022-01-23] VITALS (56 sets, daily range): BP systolic 92–144; BP diastolic 36–95; PULSE 58–166; RESP 4–33; TEMP 36.1–36.9; O2SAT 90–100
[2022-01-23 00:50] LABS: Troponin I 71 ng/L (<or=60)
[2022-01-23] MEDS: Albuterol/Ipratropium 3 ML UPD VIAL UPD ×3 (03:05→19:29)
[2022-01-23 03:10] LABS: Abs Immature Grans 0.04 10^3/uL (0.0-0.06); Absolute Basophil Count 0.01 10^3/uL (0.0-0.2); Absolute Lymphocyte Count 0.56 10^3/uL (1.2-3.4); Absolute Monocyte Count 0.55 10^3/uL (0.1-0.8); Basophils % 0.1; HCT 37.1 % (36.0-46.0); HGB 11.7 g/dL (11.2-15.7); Immature Grans % 0.6; Lymphocytes % 8.3; MCH 28.9 pg (27.0-33.0); MCHC 31.5 % (32.0-36.0); MCV 92 fL (80-95); MPV 10.6 fL (8.0-11.0); Monocytes % 8.1; Neutrophils % 82.9; Platelet Count 226 10^3/uL (130-400); RBC 4.05 10^6/uL (3.93-5.22); RDW 13.9 % (11.7-14.6); RDW-SD 47.1 fL; WBC 6.76 10^3/uL (4.4-10.8)
[2022-01-23 03:20] LABS: Anion Gap 10.1 mmol/L (3-11); BUN 68 mg/dL (7-18); CO2 28.9 mmol/L (21.0-32.0); Calcium 8.4 mg/dL (8.5-10.1); Chloride 92 mmol/L (98-107); Estimated GFR 10.46 (mL/min/1.73m2); Glucose 159 mg/dL (74-106); Magnesium 2.8 mg/dL (1.8-2.4); Potassium 4.3 mmol/L (3.5-5.1); Sodium 131 mmol/L (136-145)
[2022-01-23 03:36] LABS: Troponin I 70 ng/L (<or=60)
[2022-01-23 03:53] LABS: PTT Activated 117.8 sec (21.0-27.5)
[2022-01-23 04:38] LABS: Calculated LDL 53 mg/dL (<100); Cholesterol 122 mg/dL (<200); HDL Cholesterol 62 mg/dL (40-60); Triglyceride 35 mg/dL (<150)
--- NOTE | 2022-01-23 05:03 | NUR.NOTE ---
Nursing Note: Heparin infusion resumed at 700 units/hour. Recheck aPTT @ 1100 01/23/2022. Entered in computer.
[2022-01-23] MEDS: Metoprolol 12.5 MG TAB PO ×3 (05:44→21:37)
[2022-01-23] MEDS: Pantoprazole 40 MG VIAL IVP (08:23)
[2022-01-23] MEDS: methylPREDNISolone SUCC 125 MG VIAL 40 MG IVP (08:24)
[2022-01-23] MEDS: Acetaminophen 325 MG TAB PO ×2 (08:24→14:29)
[2022-01-23] MEDS: Albuterol 2.5 MG/3 ML INH SOLN VIAL UPD (08:25)
[2022-01-23] MEDS: Ascorbic Acid 500 MG TAB PO (08:25)
[2022-01-23] MEDS: Normal Saline Flush 10 ML SYR IVP (08:25)
[2022-01-23] MEDS: Mylanta Suspension 30 ML CUP PO (08:35)
[2022-01-23] MEDS: MORPHine 2 MG/ML SYR IVP (08:43)
[2022-01-23] MEDS: nitroGLYcerin 0.4 MG TAB SL (08:44)
--- NOTE | 2022-01-23 08:45 | RT.EKG_ITS ---
APPROVED REPORT Exam: Resting ECG Reason for Exam: chest pain Patient Location: I HR:71 bpm ECG Measurements Heart Rate 71 [place]IS [place] [id number] P [id number] QRSd 149 QRS -89 QT 571 T 104 QTc 621 Conclusion Afib/flut and V-paced complexes...other complexes, A-rate>240 No further analysis attempted due to paced rhythm
[2022-01-23 09:36] LABS: Troponin I 59 ng/L (<or=60)
[2022-01-23] MEDS: Clotrimazole 1% 15 GM TUBE TP ×2 (09:45→21:38)
[2022-01-23] MEDS: Nystatin CREAM 30 GM TUBE TP ×2 (09:45→21:37)
[2022-01-23 09:49] LABS: PTT Activated 84.4 sec (21.0-27.5)
--- NOTE | 2022-01-23 15:04 | W.PM.PROGNOT ---
Date of Service Date of service: 01/23/22 Time of Service: 15:04 Assessment and Plan Assessment and plan (1) Ventricular tachycardia, polymorphic: Status: Acute Assessment and plan: IN a patient w/ h/o prolonged QT, s/p pacemaker. Unclear reason for Vtach - was it triggered by the prolonged QT, underlying ischemia, or acute respiratory or infectious process. The patient's case was reviewed by [facility] EP who feel that the patient would benefit from transfer to [facility] for further ischemic and EP eval once bed available. No bed available today. (2) Acute on chronic respiratory failure with hypoxia and hypercapnia: Status: Acute Assessment and plan: Due to a combination of COPD exacerbation in setting of Influenza A and acute on chronic systolic CHF w/ LVEF of 46% per last echo in our system (05/27). Holding diuretic today d/t worsening renal function. Monitor for evidence of pulmonary edema. Wean BiPAP as tolerated. (3) Influenza: Start date: 01/21/22 Status: Acute Assessment and plan: Continue renally dosed tamiflu (4) NSTEMI (non-ST elevated myocardial infarction): Start date: 01/21/22 Status: Acute Assessment and plan: Troponin has trended downward; 59 today. Has been discussed with cardiology. While we cannot rule out underlying ischemia, especially with Vtach at home, demand ischemia is also a possibility in setting respiratory failure, CHF, COPD exacerbations, and Vtach could have also provided some demand. Allergic to aspirin. There is no strong evidence that this is ACS. For this reason, plavix is not getting started. Will heparinize in place of eliquis in anticipation of transfer to [facility] and AICD placement. Patient will go to [facility] once there is a cardiology bed available. No bed available today. (5) COPD exacerbation: Start date: 01/21/22 Status: Acute Assessment and plan: Continue to treat with BiPAP, nebs, steroids, ceftriaxone. Treat influenza with tamiflu. (6) CHF (congestive heart failure): Status: Chronic Assessment and plan: As above Last known LVEF is 46% in 05/27. Diuresed with IV lasix; on hold today d/t worsening renal function. Monitor I/O's and daily weights. Qualifiers: Heart failure type: systolic Heart failure chronicity: acute on chronic Qualified Code(s): I50.23 - Acute on chronic systolic (congestive) heart failure (7) Atrial fibrillation: Status: Acute Assessment and plan: Rate controlled, chronic, on metoprolol. Bridge with heparin gtt in anticipation of a possible procedure. Continue metoprolol. (8) UTI (urinary tract infection): Start date: 01/19/22 Status: Acute Assessment and plan: Due to E. Coli, present on admission. Continue ceftriaxone. (9) Acute kidney injury superimposed on chronic kidney disease: Status: Acute Assessment and plan: Possibly cardiorenal. Creatinine has worsened; 4.0 today. Jiménez catheter. Has been diuresing on IV lasix; hold today. Clinically, could not tolerate IVF. Monitor Cr. Avoid nephrotoxic drugs. (10) DVT prophylaxis: Status: Acute Assessment and plan: On therapeutic heparin gtt (11) Discharge planning issues: Status: Acute Assessment and plan: DNR/DNI. Keep in ICU. Call [facility] back in am for transfer (no beds and not listing for transfers today). . Subjective Subjective Patient reports: nausea and afebrile; denies vomiting Interval history since last seen: Central chest pain described as a light pressure this AM. Improved ease of breathing overall. Exam Narrative Exam Narrative: General: Pleasant elderly female who is A&Ox2. Appears fatigued. Conversant. HEENT: EOMI, MMM Heart: RRR Lungs: Soft wheezing and rales on expiration B. Abdomen: soft, nontender, nondistended Extremities: BLE nonpitting edema. Objective Last Vital Signs Temp 36.1 C L 01/23/22 12:30 Pulse 62 01/23/22 12:30 Resp 18 01/23/22 12:30 BP 118/55 L 01/23/22 11:00 Pulse Ox 92 01/23/22 12:30 Laboratory Results - last 24 hr 01/22/22 01/22/22 01/23/22 20:30 20:30 00:14 WBC RBC Hgb Hct MCV MCH MCHC RDW Plt Count MPV Immature Gran % Neutrophils % Lymphocytes % Monocytes % Eosinophils % Basophils % Nucleated RBC % Absolute Neutrophils Absolute Lymphocytes Absolute Monocytes Absolute Eosinophils Absolute Basophils APTT 30.5 H Sodium Potassium Chloride Carbon Dioxide Anion Gap BUN Creatinine Est GFR (CKD-EPI 2020) Glucose Calcium Magnesium Troponin I 76 H* 71 H* Triglycerides Total Cholesterol LDL Cholesterol, Calc HDL Cholesterol 01/23/22 01/23/22 01/23/22 02:49 02:49 02:49 WBC 6.76 RBC 4.05 Hgb 11.7 Hct 37.1 MCV 92 MCH 28.9 MCHC 31.5 L RDW 13.9 Plt Count 226 MPV 10.6 Immature Gran % 0.6 Neutrophils % 82.9 Lymphocytes % 8.3 Monocytes % 8.1 Eosinophils % 0.0 Basophils % 0.1 Nucleated RBC % 0.0 Absolute Neutrophils 5.60 Absolute Lymphocytes 0.56 L Absolute Monocytes 0.55 Absolute Eosinophils 0.00 Absolute Basophils 0.01 APTT Sodium 131 L Potassium 4.3 Chloride 92 L Carbon Dioxide 28.9 Anion Gap 10.1 BUN 68 H Creatinine 4.0 H* Est GFR (CKD-EPI 2020) 10.46 Glucose 159 H Calcium 8.4 L Magnesium 2.8 H Troponin I 70 H* Triglycerides 35 Total Cholesterol 122 LDL Cholesterol, Calc 53 HDL Cholesterol 62 01/23/22 01/23/22 01/23/22 02:49 09:00 09:00 WBC RBC Hgb Hct MCV MCH MCHC RDW Plt Count MPV Immature Gran % Neutrophils % Lymphocytes % Monocytes % Eosinophils % Basophils % Nucleated RBC % Absolute Neutrophils Absolute Lymphocytes Absolute Monocytes Absolute Eosinophils Absolute Basophils APTT 117.8 H* 84.4 H* Sodium Potassium Chloride Carbon Dioxide Anion Gap BUN Creatinine Est GFR (CKD-EPI 2020) Glucose Calcium Magnesium Troponin I 59 Triglycerides Total Cholesterol LDL Cholesterol, Calc HDL Cholesterol
[2022-01-23] MEDS: cefTRIAXone 1 GM/50 ML BAG IVPB (21:37)
[2022-01-23] MEDS: Atorvastatin 20 MG TAB PO (21:37)
[2022-01-24] VITALS (46 sets, daily range): BP systolic 90–145; BP diastolic 25–68; PULSE 59–99; RESP 2–26; TEMP 36.3–36.5; O2SAT 91–100
[2022-01-24] MEDS: Albuterol/Ipratropium 3 ML UPD VIAL UPD ×4 (00:07→19:15)
[2022-01-24] MEDS: LORazepam 2 MG/ML VIAL 0.5 MG IV ×2 (03:17→22:57)
[2022-01-24] MEDS: Metoprolol 12.5 MG TAB PO ×3 (06:33→21:27)
[2022-01-24 06:38] LABS: PTT Activated 37.9 sec (21.0-27.5)
[2022-01-24 06:45] LABS: Anion Gap 9.7 mmol/L (3-11); CO2 28.3 mmol/L (21.0-32.0); Calcium 8.1 mg/dL (8.5-10.1); Chloride 90 mmol/L (98-107); Estimated GFR 8.62 (mL/min/1.73m2); Glucose 148 mg/dL (74-106); Sodium 128 mmol/L (136-145)
[2022-01-24 06:49] LABS: BUN 82 mg/dL (7-18); CREATININE 4.7 mg/dL (0.55-1.02)
--- NOTE | 2022-01-24 07:58 | PCNE_ITS ---
Date of service: 01/24/22 Time of Service: 07:58 History of Present Illness Narrative: FRom todays Hospitalist note: Assessment and plan (1) Ventricular tachycardia, polymorphic: ?Status:?Acute ? ? ? Assessment and plan: IN a patient w/ h/o prolonged QT, s/p pacemaker. Unclear reason for Vtach - was it triggered by the prolonged QT, underlying ischemia, or acute respiratory or infectious process. The patient's case was reviewed by [facility] who feel that the patient would benefit from transfer to [facility] for further ischemic and EP eval once bed available.? No bed available today/at capacity. (2) Acute on chronic respiratory failure with hypoxia and hypercapnia: ?Status:?Acute ? ? ? Assessment and plan: Due to a combination of COPD exacerbation in setting of Influenza A and acute on chronic systolic CHF w/ LVEF of 46% per last echo in our system (05/27). Holding diuretic today d/t worsening renal function.? Monitor for evidence of pulmonary edema. Wean BiPAP as tolerated. PRN ativan for tachypnea / sense of air hunger. (3) Influenza: ? ? ? Start date: 01/21/22 ?Status:?Acute ? ? ? Assessment and plan: Continue renally dosed tamiflu (4) NSTEMI (non-ST elevated myocardial infarction): ? ? ? Start date: 01/21/22 ?Status:?Acute ? ? ? Assessment and plan: Troponin has trended downward. Has been discussed with cardiology. While we cannot rule out underlying ischemia, especially with Vtach at home, demand ischemia is also a possibility in setting respiratory failure, CHF, COPD exacerbations, and Vtach could have also provided some demand. Allergic to aspirin. There is no strong evidence that this is ACS. For this reason, plavix is not getting started. Will heparinize in place of eliquis in anticipation of transfer to [facility] and AICD placement. (5) COPD exacerbation: ? ? ? Start date: 01/21/22 ?Status:?Acute ? ? ? Assessment and plan: Continue to treat with BiPAP, nebs, steroids, ceftriaxone. Treat influenza with tamiflu. (6) CHF (congestive heart failure): ?Status:?Chronic ? ? ? Assessment and plan: As above LVEF was 46% in 05/27. Echocardiogram today:??Mild concentric left ventricular hypertrophy.? Normal left ventricular chamber size.? Estimated ejection fraction is 50 to 55% without segmental wall motion abnormalities Diuresed with IV lasix; on hold yesterday and? today d/t worsening renal function. Today, however, will give 250ml NS d/t low BP and low urine outpt. Monitor I/O's and daily weights. ?Qualifiers: ?Heart failure type:?systolic??Heart failure chronicity:?acute on chronic ? Qualified Code(s):?I50.23 - Acute on chronic systolic (congestive) heart failure (7) Atrial fibrillation: ?Status:?Acute ? ? ? Assessment and plan: Rate controlled, chronic, on metoprolol. Bridge with heparin gtt in anticipation of a possible procedure. Continue metoprolol. (8) UTI (urinary tract infection): ? ? ? Start date: 01/19/22 ?Status:?Acute ? ? ? Assessment and plan: Due to E. Coli, present on admission. Continue ceftriaxone. (9) Acute kidney injury superimposed on chronic kidney disease: ?Status:?Acute ? ? ? Assessment and plan: Possibly cardiorenal. Creatinine continues to increase; now 4.7. Jiménez catheter. Has been diuresing on IV lasix; held yesterday and today.? BP low.? See above regarding echo.? Will give NS 250mg x 1 and evaluate urine output and BP.? Monitor Cr. Avoid nephrotoxic drugs. (10) DVT prophylaxis: ?Status:?Acute ? ? ? Assessment and plan: On therapeutic heparin gtt (11) Discharge planning issues: ?Status:?Acute ? ? ? Assessment and plan: DNR/DNI. Keep in ICU. Interim hx: I initially met with Milagro in the morning. She was quite sleepy and had just received some Ativan. I came back this evening and met with her daughter Beatriz, and 2 christiano tomlinters, 1 of whom is her main caregiver. Milagro was jovial and was talking with grandchildren and introduced me. She said she was feeling better but still was too weak to walk. We discussed future plans i.e. going to [facility] for possible defibrillator placement, going to a shelter and perhaps going on hospice. She was adamant that she did not want to go to [facility]. She knew what a defibrillator was. She did not want to have that procedure. She states I am 86 years of age I had a really good life and I do not want all these complications We also discussed Milagro's worsening kidney function as well as her problems with CHF. She was easily able to tell me what CHF was and how she was presently being treated for it but at the same time it was affecting her kidneys. Both Beatriz and her granddaughter Hien also understood that it was a balancing act at this point. Milagro was very clear that she wanted to go home. Beatriz and granddaughters stated that they would be able to bring Milagro home and supply 24-hour 7-day a week care. Assessment and Plan Assessment and plan (1) Ventricular tachycardia, polymorphic: Status: Acute (2) Acute on chronic respiratory failure with hypoxia and hypercapnia: Status: Acute (3) JARRETT (acute kidney injury): Status: Acute (4) Counseling regarding advanced care planning and goals of care: Status: Acute Assessment and plan: We talked for some time about Milagro's condition . again she was able to tell me that she had CHF, something wrong with her kidneys, and the flu. She understood that her family wanted her to go to [facility] [place] defibrillator [place]. She stated clearly on 3 or 4 occasions that she did not want to go to [facility] she knows what it defibrillator is and she does not want it placed. We also talked about her renal insufficiency and how things are going downhill. She does not want hemodialysis. She is hoping that her kidneys come back but at the same time not willing to go through hemodialysis She understands that her heart failure combined with renal insufficiency is a double edged sword. She is well aware that making her heart failure better may end up making her kidney function worse We discussed hospice and her granddaughter Hien felt that it was too soon to consider this as Milagro has only been inpatient for 3 days. Milagro was not opposed to going on hospice. Family just wants her to have more time in the hospital. We did talk about hospice and the goals being supportive care and symptom management. We also discussed how we would not, if she went on hospice, be tracking her creatinine but rather treating things symptomatically. I discussed how they would have ready access to nurses and providers who knew Milagro's case and could help with symptom management. I also did discuss the 6 months or less prognosis and if Milagro did improve that she could graduate from hospice. Again they wanted to give bolus more time in the hospital to see how much better she could get. Due to her weakness etc. it is important that Milagro get physical therapy as soon as possible I have discussed all above with hospitalist team. Again Milagro does not want to go to [facility] for defibrillator placement, she does not want to have further inquiry into her heart condition, she wants to go home as soon as possible. Thank you very much for this consult. I will come back in a few days and see daren Humphrey is doing. The family knows that they can contact me in the interim if they would like to Review of Systems Constitutional Constitutional: Reports body ache(s), Reports lethargy, Reports poor appetite and Reports weakness Eyes Eyes: Reports dry eyes Cardiovascular Cardiovascular: Reports lightheadedness and Reports orthopnea Respiratory Respiratory: Reports chest congestion and Reports cough Gastrointestinal Gastrointestinal: Reports system reviewed and no additional complaints, except as documented Genitourinary Genitourinary: Reports other (cath in place) Neurologic Neurologic: Reports confusion, Reports lack of coordination and Reports weakness Psychiatric Psychiatric: Reports confusion and Reports difficulty concentrating PFSH All Active Problems (Updated 01/25/22 @ 07:13 by Ling Givens MD, [place]) Counseling regarding advanced care planning and goals of care (Acute) Ventricular tachycardia, polymorphic (Acute) Discharge planning issues (Acute) DVT prophylaxis (Acute) Acute on chronic respiratory failure with hypoxia and hypercapnia (Acute) Acute kidney injury superimposed on chronic kidney disease (Acute) JARRETT (acute kidney injury) (Acute) NSTEMI (non-ST elevated myocardial infarction) (Acute) Influenza (Acute) CKD (chronic kidney disease) (Chronic) Cellulitis of right lower extremity (Acute) Atrial fibrillation (Acute) COPD (chronic obstructive pulmonary disease) (Chronic) CHF (congestive heart failure) (Chronic) Primary osteoarthritis of right knee (Acute 05/01/17) Steroid injection: 10/25/21; 04/12/21; 07/13/2020; 04/13/2020; 11/29/18; 06/25/2018; 05/01/17; 11/02/16; 04/04/16 ZILRETTA: 07/19/21 Primary osteoarthritis of left knee (Acute 08/13/15) Steroid injection: 10/25/21; 04/12/21; 04/13/2020; 11/29/18; 06/25/2018; 12/27/17; 08/21/17; 05/01/17; 11/02/16; 04/04/16; 08/13/15 Synvisc injection: 07/13/2020; 11/01/17 ZILRETTA: 07/19/21 UTI (urinary tract infection) (Acute) Generalized weakness (Acute) Dehydration (Acute) Hyperglycemia (Acute) Chest pain (Acute) COPD exacerbation (Acute) Hypokalemia (Acute) Constipation (Acute) Social History Smoking/Tobacco Use Status: Former Tobacco Use Smoking risk assessment performed?: Yes Alcohol Intake: current Alcohol Intake frequency: holidays/special occasions only Alcohol type: beer Drug use: Never Substance use type: does not use Current gender identity: female Do you feel safe at home: Yes Do you feel safe in your relationship?: Yes History History Para 2 Hx # Term Pregnancies Multiple births Hx # Pregnancies Ectopic pregnancies AB induced Hx Number of Living Children AB spontaneous Exam Narrative Exam Narrative: Milagro is lying in bed. She is awake but sometimes closes her eyes. The left eye is generally closed. She is oriented x3. She is able to tell me the names of her grandchildren in the room as well as her daughter. She fairly concisely tells me what is going on with her with her CHF, urinary infection and renal failure. I did examine her this morning and she did have regular rate although there was some ectopy. She does have a systolic murmur. Very shallow breathing. It was not apneic but it was definitely labored. Left eye is closed most of the time Results Last Vital Signs Temp 97.3 F L 01/24/22 04:00 Pulse 59 L 01/24/22 07:00 Resp 21 01/24/22 07:00 BP 90/37 L 01/24/22 07:00 Pulse Ox 91 L 01/24/22 07:00 Laboratory Tests 01/19/22 01/21/2201/22/22 21:07 17:00 06:03 WBC 11.01 H Hct VBG pH VBG pCO2 72 H* Sodium BUN Creatinine Troponin I TSH 0.58 01/22/22 01/22/22 01/23/22 06:03 08:30 02:49 WBC Hct 40.4 VBG pH 7.27 L VBG pCO2 60 H Sodium 131 L BUN 68 H Creatinine 4.0 H* Troponin I TSH 01/23/22 01/23/22 01/23/22 02:49 02:49 09:00 WBC 6.76 Hct 37.1 VBG pH VBG pCO2 Sodium BUN Creatinine Troponin I 70 H* 59 TSH 01/24/22 05:15 WBC Hct VBG pH VBG pCO2 Sodium 128 L BUN 82 H* Creatinine 4.7 H* Troponin I TSH CT Abd/Pelvis Pancreas: Normal density, no abnormal calcifications or inflammatory process. Spleen: Normal. Adrenals: No masses seen. Kidneys: There is again seen atrophy of the right kidney.? No radiodense stones or obstructive uropathy. No masses seen. Abdominal Aorta: Abdominal portion non-dilated. Atherosclerosis is present. Bowel: No obstruction or bowel wall thickening. Appendix is unremarkable. There is diverticulosis in the colon, but no evidence of acute diverticulitis.? There is again seen an anterior abdominal wall hernia, located superior to the anterior abdominal wall repair, containing a unremarkable loop of small bowel.? No evidence of obstruction is seen. Peritoneal Cavity: No ascites, collection or mesenteric inflammatory response.? No free air. Lymph Nodes: Within normal limits. Bones: Within normal limits for the patient's age.? There is a stable mild compression of the T12 vertebral body. Soft Tissues: Unremarkable. PELVIS: Bladder: Symmetric distention, no gross wall thickening. Reproductive Organs: Status post hysterectomy.? Lymph Nodes: Within normal limits. Bones: Within normal limits for the patient's age.? IMPRESSION: 1. No acute abdominal or pelvic process. 2. Stable chronic findings as described above.? Labs Result diagrams: 01/25/22 05:10 01/25/22 05:10 Labs: Laboratory Results - last 24 hr 01/23/22 01/23/22 01/23/22 09:00 09:00 15:55 APTT 84.4 H* 67.0 H Sodium Potassium Chloride Carbon Dioxide Anion Gap BUN Creatinine Est GFR (CKD-EPI 2020) Glucose Calcium Troponin I 59 01/24/22 01/24/22 05:14 05:15 APTT 37.9 H Sodium 128 L Potassium 4.0 Chloride 90 L Carbon Dioxide 28.3 Anion Gap 9.7 BUN 82 H* Creatinine 4.7 H* Est GFR (CKD-EPI 2020) 8.62 Glucose 148 H Calcium 8.1 L Troponin I
--- NOTE | 2022-01-24 08:00 | DI.US_ITS ---
APPROVED REPORT EXAM: Comprehensive 2D, Doppler, and color-flow Echocardiogram Patient Location: In-Patient Room/Bed: ICU Clinical Laboratory Medical Director: Beth Finch RDCS (AE) Indications: NSTEMI, V Tach, COPD, A Fib, Pacemaker Other Information Study Quality: Fair. Technically limited study due to body habitus, inability to position patient exa m done supine bedside icu. Conclusion Mild concentric left ventricular hypertrophy. Normal left ventricular chamber size. Estimated eject ion fraction is 50 to 55% without segmental wall motion abnormalities Right ventricle appears normal in size Left atrium is moderately dilated. The right atrium is mildly dilated Device lead noted in the right heart Aortic valve is sclerotic with mild regurgitation Moderate mitral annular calcification. Mild to moderate mitral regurgitation Normal tricuspid valve with mild regurgitation. Estimated right ventricular systolic pressure is 32 mmHg Wall motion Left Ventricle The left ventricle is normal size. Left ventricular systolic function is borderline. Mild concentric left ventricular hypertrophy. There is no ventricular septal defect visualized. LVEF is 50-55%. Right Ventricle Right ventricle is grossly normal in size. Right ventricular systolic function is grossly normal. Pac emaker lead is present in the right ventricle. Atria The left atrium is moderately dilated Right atrium is mildly dilated. The interatrial septum is intac t with no evidence for an atrial septal defect. Aortic Valve Aortic valve is calcified. Aortic valve is probably trileaflet. There is no aortic valvular stenosis. Mild aortic regurgitation. Mitral Valve Moderate mitral annular calcification. No evidence of mitral valve stenosis. Mild to moderate mitral regurgitation. Tricuspid Valve The tricuspid valve is normal in structure. There is no tricuspid valve stenosis. Mild tricuspid regu rgitation. Pulmonic Valve The pulmonary valve is normal in structure. There is no pulmonic valvular stenosis. Trace pulmonic re gurgitation. Great Vessels The aortic root is normal in size. The ascending aorta is normal in size. Aortic arch is not well vis ualized. IVC is normal in size and collapses >50% with normal respiration. Pericardium There is no pericardial effusion. 2D Dimensions IVSD d PLAX 1.13 cm F: 0.6-1.0 LV Vol A2C d MOD 72.3 mL LVPW d PLAX 1.17 cm F: 0.6 - 1.0 LV Vol A4C d MOD 72.2 mL LVID d PLAX 4.44 cm F: 3.8 - 5.2 LA Area A4C s MOD 23.40 cm2 LVDs 3.40 cm F: 2.2 - 3.5 LA Area A2C s MOD 14.19 cm2 Ao Root d 2.95 cm F: 2.7 - 3.3 LV EF A4C MOD 46.6 % Ao Asc Diam d 3.15 cm F: 2.3 - 3.1 LV EF A2C MOD 47.4 % LV EF Teichholz 45.5 % LV EF Biplane MOD 46.1 % LVEF (Gonzalez's) 46.10 % F: 54 - 74 SV 33.27 mL LV Volume 72.17 mL F: 46 - 106 LV Volume Index 42.45 mL/m2 F: 29 - 61 LV Vol Biplane MOD 72.2 mL FS 22.45 % M-Mode TAPSE 1.73 cm (M/F) >1.7 LV Diastology MV E' medial 0.062 (>0.07 m/s) E/A Ratio 4.2 LV E/e MED 20.25 (<14) MV E Vmax 1.26 (0.4-1.3 m/s) MV E' lateral 0.101 (>0.1 m/s) MV A Vmax 0.30 (0.4-1.3 m/s) LV E/e LAT 12.45 (<14) MV E/A Ratio 3.69 MV E/E' medial 20.28 MV E/E' lateral 12.46 Aortic Valve LVOT Area 3.12 cm2 AoV Area Vmax 1.54 cm2 LVOT Vmax 1.05 m/s JACK Mean Ravi. 1.47 cm2 LVOT Mean Ravi. 0.70 m/s AR DT 1850 msec LVOT Peak Grad 4.4 mmHg AR PHT 536 msec LVOT Mean Grad 2.4 mmHg LVOT VTI 0.138 m LVOT Diam s 1.95 cm AoV Vmax 2.13 m/s Velocity Ratio 0.49 AoV Mean Ravi. 1.48 m/s AoV Peak Grad 18.2 mmHg LVOT SV 42.94 mL AoV Mean Grad 10.3 mmHg AoV VTI 0.410 m AoV Area VTI 1.05 cm2 Mitral Valve MV DT 338 (160-240 msec) MV PHT 98 msec MV Area PHT 2.25 cm2 MV VTI 0.399 m MV Area VTI 1.08 (4.0-6.0 cm2) Pulmonary Valve PV Vmax 1.64 (0.5-1.5 m/s) RVOT Peak Gr. 5.06 mmHg PV Peak Grad 10.7 mmHg RVOT Mean Gr. 2.70 mmHg PV Mean Grad 5.1 mmHg RVOT VTI 0.193 m PV VTI 0.320 m RVOT Vmax 1.12 m/s Tricuspid Valve TR Peak Grad 28.6 mmHg TR Vmax 2.68 m/s RA Pressure 3.00 mmHg RVSP (TR) 31.7 mmHg
[2022-01-24] MEDS: Ascorbic Acid 500 MG TAB PO (09:17)
[2022-01-24] MEDS: Pantoprazole 40 MG VIAL IVP (09:17)
[2022-01-24] MEDS: methylPREDNISolone SUCC 40 MG VIAL IVP (09:18)
[2022-01-24] MEDS: Normal Saline Flush 10 ML SYR IVP ×2 (09:18→21:27)
--- NOTE | 2022-01-24 09:23 | PDOC.CMPRO ---
- If Service Date Differs Date of service: 01/24/22 Time of Service: 09:23 Care Management Progress Note S/O: Milagro is being closely monitored and treated in the ICU. Patient's daughter Beatriz is advocating for [place] [facility] CM reviewed limitations in regards to bed availability and this is concerning to Beatriz. Nursing has spoken to Beatriz today and Dr. Pena agrees to also call her to provide medical updates. A family meeting is scheduled with at 5:15 today. Beatriz is planning on being here. A: 86 year old female admitted to [facility] on 01/21/22 for NSTEMI, CHF Exacerbation, Flu A, COPD Exacerbation. P: Plan is undetermined at this time. Patient may require a transfer to a tertiary center for a cardiovascular intervention. Palliative is following. CM will continue to follow.
[2022-01-24] MEDS: Oseltamivir 30 MG CAP PO (12:14)
[2022-01-24] MEDS: Nystatin CREAM 30 GM TUBE TP ×2 (12:14→21:02)
[2022-01-24] MEDS: Clotrimazole 1% 15 GM TUBE TP ×2 (12:15→21:02)
[2022-01-24] MEDS: Normal Saline 250 ML IV (12:27)
--- NOTE | 2022-01-24 14:24 | PGE_ITS ---
Date of Service Date of service: 01/24/22 Time of Service: 14:26 Assessment and Plan Assessment and plan (1) Ventricular tachycardia, polymorphic: Status: Acute Assessment and plan: IN a patient w/ h/o prolonged QT, s/p pacemaker. Unclear reason for Vtach - was it triggered by the prolonged QT, underlying ischemia, or acute respiratory or infectious process. The patient's case was reviewed by [facility] who feel that the patient would benefit from transfer to [facility] for further ischemic and EP eval once bed available. No bed available today/at capacity. (2) Acute on chronic respiratory failure with hypoxia and hypercapnia: Status: Acute Assessment and plan: Due to a combination of COPD exacerbation in setting of Influenza A and acute on chronic systolic CHF w/ LVEF of 46% per last echo in our system (05/27). Holding diuretic today d/t worsening renal function. Monitor for evidence of pulmonary edema. Wean BiPAP as tolerated. PRN ativan for tachypnea / sense of air hunger. (3) Influenza: Start date: 01/21/22 Status: Acute Assessment and plan: Continue renally dosed tamiflu (4) NSTEMI (non-ST elevated myocardial infarction): Start date: 01/21/22 Status: Acute Assessment and plan: Troponin has trended downward. Has been discussed with cardiology. While we cannot rule out underlying ischemia, especially with Vtach at home, demand ischemia is also a possibility in setting respiratory failure, CHF, COPD exacerbations, and Vtach could have also provided some demand. Allergic to aspirin. There is no strong evidence that this is ACS. For this reason, plavix is not getting started. Will heparinize in place of eliquis in anticipation of transfer to [facility] and AICD placement. (5) COPD exacerbation: Start date: 01/21/22 Status: Acute Assessment and plan: Continue to treat with BiPAP, nebs, steroids, ceftriaxone. Treat influenza with tamiflu. (6) CHF (congestive heart failure): Status: Chronic Assessment and plan: As above LVEF was 46% in 05/27. Echocardiogram today: Mild concentric left ventricular hypertrophy.? Normal left ventricular chamber size.? Estimated ejection fraction is 50 to 55% without segmental wall motion abnormalities Diuresed with IV lasix; on hold yesterday and today d/t worsening renal function. Today, however, will give 250ml NS d/t low BP and low urine outpt. Monitor I/O's and daily weights. Qualifiers: Heart failure type: systolic Heart failure chronicity: acute on chronic Qualified Code(s): I50.23 - Acute on chronic systolic (congestive) heart failure (7) Atrial fibrillation: Status: Acute Assessment and plan: Rate controlled, chronic, on metoprolol. Bridge with heparin gtt in anticipation of a possible procedure. Continue metoprolol. (8) UTI (urinary tract infection): Start date: 01/19/22 Status: Acute Assessment and plan: Due to E. Coli, present on admission. Continue ceftriaxone. (9) Acute kidney injury superimposed on chronic kidney disease: Status: Acute Assessment and plan: Possibly cardiorenal. Creatinine continues to increase; now 4.7. Jiménez catheter. Has been diuresing on IV lasix; held yesterday and today. BP low. See above regarding echo. Will give NS 250mg x 1 and evaluate urine output and BP. Monitor Cr. Avoid nephrotoxic drugs. (10) DVT prophylaxis: Status: Acute Assessment and plan: On therapeutic heparin gtt (11) Discharge planning issues: Status: Acute Assessment and plan: DNR/DNI. Keep in ICU. Palliative planning family meeting today to discuss goals of care. . Subjective Subjective Patient reports: tolerating a regular diet (Poor appetite), voiding w/o difficulty, shortness of breath and afebrile Interval history since last seen: Intermittently noted tachypnea / shallow breathing. Exam Narrative Exam Narrative: General: Pleasant elderly female who is A&Ox2. Appears fatigued. HEENT: EOMI, MMM Heart: RRR Lungs: Soft wheezing. Abdomen: soft, nontender, nondistended Extremities: BLE nonpitting edema. Objective Last Vital Signs Temp 36.3 C L 01/24/22 04:00 Pulse 67 01/24/22 12:30 Resp 24 01/24/22 12:30 BP 100/25 L 01/24/22 10:00 Pulse Ox 99 01/24/22 12:30 Laboratory Results - last 24 hr 01/23/22 01/24/22 01/24/22 15:55 05:14 05:15 APTT 67.0 H 37.9 H Sodium 128 L Potassium 4.0 Chloride 90 L Carbon Dioxide 28.3 Anion Gap 9.7 BUN 82 H* Creatinine 4.7 H* Est GFR (CKD-EPI 2020) 8.62 Glucose 148 H Calcium 8.1 L
[2022-01-24 15:08] LABS: PTT Activated 95.1 sec (21.0-27.5)
[2022-01-24] MEDS: cefTRIAXone 1 GM/50 ML BAG IVPB (21:27)
[2022-01-24] MEDS: Atorvastatin 20 MG TAB PO (21:28)
[2022-01-24 23:50] LABS: PTT Activated 42.2 sec (21.0-27.5)
[2022-01-25] VITALS (35 sets, daily range): BP systolic 119–162; BP diastolic 37–73; PULSE 59–67; RESP 1–23; TEMP 36–37; O2SAT 88–98
[2022-01-25] MEDS: Albuterol/Ipratropium 3 ML UPD VIAL UPD ×5 (00:01→23:09)
[2022-01-25] MEDS: Metoprolol 12.5 MG TAB PO ×3 (05:17→21:43)
[2022-01-25] MEDS: Acetaminophen 325 MG TAB PO ×2 (05:18→18:02)
[2022-01-25 06:21] LABS: HCT 37.3 % (36.0-46.0); HGB 12.1 g/dL (11.2-15.7); MCHC 32.4 % (32.0-36.0); MCV 89 fL (80-95); MPV 10.9 fL (8.0-11.0); Platelet Count 235 10^3/uL (130-400); RBC 4.17 10^6/uL (3.93-5.22); RDW 13.8 % (11.7-14.6); RDW-SD 45.1 fL; WBC 12.65 10^3/uL (4.4-10.8)
[2022-01-25 06:34] LABS: PTT Activated 74.5 sec (21.0-27.5)
[2022-01-25 06:43] LABS: ALT 19 U/L (14-59); AST 20 U/L (15-37); Albumin 2.7 g/dL (3.4-5.0); Alkaline Phosphatase 54 U/L (46-116); Anion Gap 10.8 mmol/L (3-11); Bilirubin, Total 0.2 mg/dL (0.2-1.0); CO2 26.2 mmol/L (21.0-32.0); Calcium 8.4 mg/dL (8.5-10.1); Chloride 89 mmol/L (98-107); Estimated GFR 8.85 (mL/min/1.73m2); Glucose 130 mg/dL (74-106); Potassium 4.2 mmol/L (3.5-5.1); Sodium 126 mmol/L (136-145); Total Protein 6.3 g/dL (6.4-8.2)
[2022-01-25 06:46] LABS: BUN 97 mg/dL (7-18)
[2022-01-25 06:47] LABS: CREATININE 4.6 mg/dL (0.55-1.02)
[2022-01-25 08:48] LABS: Lab Add On Test DONE
[2022-01-25] MEDS: methylPREDNISolone SUCC 40 MG VIAL IVP (09:00)
--- NOTE | 2022-01-25 09:00 | DI.RAD_ITS ---
Exam(s) XR PORTABLE CHEST AP EXAM: XR PORTABLE CHEST AP CLINICAL HISTORY: Pneumonia.. TECHNIQUE: 2D digital imaging was performed. COMPARISON: CR,XR XR PORTABLE CHEST AP from 01/19/[address] ABDOMEN PELVIS W from 01/19/2022 CR,XR XR PORTABLE CHEST AP from 01/21/2022 FINDINGS: Single AP portable view. Again noted is cardiomegaly and bipolar left subclavian pacemaker. Chest leads in place. Calcifications in the right lung apex are again noted. These may be within the wall of the right sub clavian artery. Right lung is clear. No new left lung findings. Left lung base appears unchanged. No airspace pulm onary edema. No Brenda B lines. IMPRESSION: Cardiomegaly. Bipolar pacemaker. Pulmonary venous hypertension but no radha airspace pulmonary nicki a. Appearance is unchanged from 01/21/2022. DATA REPOSITORY: RADIATION DOSE DELIVERED:
[2022-01-25] MEDS: Pantoprazole 40 MG VIAL IVP (09:01)
[2022-01-25] MEDS: Ascorbic Acid 500 MG TAB PO (09:02)
[2022-01-25 09:16] LABS: Procalcitonin 0.7 ng/mL
--- NOTE | 2022-01-25 09:18 | CMPROGNOTE_ITS ---
- If Service Date Differs Date of service: 01/25/22 Time of Service: 09:18 Care Management Progress Note S/O: Per nursing, Milagro is tired and weak today. She just wants to sleep. Dr. Givens from Palliative met with Milagro and her family yesterday evening. Per provider, Milagro does not want to transfer [place] [facility] [place] and was very clear that she wanted to go home when medically able. Plan is for Milagro to discharge home with 24/ caregiver support from Beatriz and her jaelyn kang when able. A: 86 year old female admitted to [facility] on 01/21/22 for NSTEMI, CHF Exacerbation, Flu A, COPD Exacerbation. P: Milagro will discharge home with 24/ caregiver support from family with New [facility] RN/PT/OT/[employer], if indicated. She will transport via private vehicle vs. EMS (depending on mobility). Milagro will be closely followed by Palliative. She will follow up with community providers and discharge plan of care as prescribed. CM will continue to follow.
--- NOTE | 2022-01-25 09:18 | PDOC.CMPRO ---
- If Service Date Differs Date of service: 01/25/22 Time of Service: 09:18 Care Management Progress Note S/O: Per nursing, Milagro is tired and weak today. She just wants to sleep. Dr. Givens from Palliative met with Milagro and her family yesterday evening. Per provider, Milagro does not want to transfer to [facility] [place] defibrill[place] and was very clear that she wanted to go home when medically able. Plan is for Milagro to discharge home with 24/7 caregiver support from Beatriz and her granddaughters when able. A: 86 year old female admitted to [facility] on 01/21/22 for NSTEMI, CHF Exacerbation, Flu A, COPD Exacerbation. P: Milagro will discharge home with 24/7 caregiver support from family with New [facility] RN/PT/OT/[employer], if indicated. She will transport via private vehicle vs. EMS (depending on mobility). Milagro will be closely followed by Palliative. She will follow up with community providers and discharge plan of care as prescribed. CM will continue to follow.
[2022-01-25] MEDS: Nystatin CREAM 30 GM TUBE TP ×2 (10:00→19:56)
[2022-01-25] MEDS: Clotrimazole 1% 15 GM TUBE TP ×2 (10:00→19:56)
[2022-01-25] MEDS: Normal Saline 250 ML IV (10:33)
[2022-01-25] MEDS: Furosemide 20 MG/2 ML VIAL IVP (10:50)
[2022-01-25] MEDS: Apixaban 2.5 MG TAB PO ×2 (10:51→19:55)
--- NOTE | 2022-01-25 15:10 | PGE_ITS ---
Date of Service Date of service: 01/25/22 Time of Service: 15:11 Assessment and Plan Assessment and plan (1) Ventricular tachycardia, polymorphic: Status: Acute Assessment and plan: IN a patient w/ h/o prolonged QT, s/p pacemaker. Unclear reason for Vtach - was it triggered by the prolonged QT, underlying ischemia, or acute respiratory or infectious process. She has made decision, during palliative consultation, not to transfer from [facility] for ICD placement. Stable currently on telemetry. (2) Acute on chronic respiratory failure with hypoxia and hypercapnia: Status: Acute Assessment and plan: Due to a combination of COPD exacerbation in setting of Influenza A and acute on chronic systolic CHF w/ LVEF of 46% per last echo in our system (05/27). Her diuretic was held for 2 days d/t deteriorating renal function. CXR shows no increased pulmonary edema. Her procalcitonin is elevated at 0.7 and her WBC count is no longer normal; elevated at 12.65. Concerning for pneumonia. Increased dosage of ceftriaxone. Cont BiPAP at night. PRN ativan for tachypnea / sense of air hunger. (3) Influenza: Start date: 01/21/22 Status: Acute Assessment and plan: Will stop Tamiflu (4) NSTEMI (non-ST elevated myocardial infarction): Start date: 01/21/22 Status: Acute Assessment and plan: Troponin has trended downward. Has been discussed with cardiology. While we cannot rule out underlying ischemia, especially with Vtach at home, demand ischemia is also a possibility in setting respiratory failure, CHF, COPD exacerbations, and Vtach could have also provided some demand. Allergic to aspirin. There is no strong evidence that this is ACS. For this reason, plavix is not getting started. Now back on Eliquis 2.5mg BID. (5) COPD exacerbation: Start date: 01/21/22 Status: Acute Assessment and plan: Continue to treat with BiPAP, nebs, steroids, ceftriaxone. Influenza was treated with Tamiflu. Stable. (6) CHF (congestive heart failure): Status: Chronic Assessment and plan: As above LVEF was 46% in 05/27. Echocardiogram 01/24/22: Mild concentric left ventricular hypertrophy.? Normal left ventricular chamber size.? Estimated ejection fraction is 50 to 55% without segmental wall motion abnormalities Poor po fluid intake. 250ml NS bolus given along with lasix 20mg IV. + peripheral edema. Qualifiers: Heart failure type: systolic Heart failure chronicity: acute on chronic Qualified Code(s): I50.23 - Acute on chronic systolic (congestive) heart failure (7) Atrial fibrillation: Status: Acute Assessment and plan: Rate controlled, chronic, on metoprolol. Back on Eliquis 2.5mg BID now that there is no plan for an ICD placement. Continue metoprolol. (8) UTI (urinary tract infection): Start date: 01/19/22 Status: Acute Assessment and plan: Due to E. Coli, present on admission. She has had an adequate treatment with rocephin for the UTI, but will continue (at a 2g/daily dose) now that WBC count has increased. Possibly pulmonary infectioius source. (9) Acute kidney injury superimposed on chronic kidney disease: Status: Acute Assessment and plan: Possibly cardiorenal. Creatinine continues to be elevated at 4.6. Jiménez catheter. After holding lasix for 2 days without seeing improvement in renal function, have started hydrating with intermittent NS boluses followed by lasix. See above regarding echo. Monitor Cr. Avoid nephrotoxic drugs. (10) DVT prophylaxis: Status: Acute Assessment and plan: On therapeutic heparin gtt (11) Discharge planning issues: Status: Acute Assessment and plan: DNR/DNI. Keep in ICU. Palliative consult appreciated. Planning to continue treatments at this time but the subject of hospice was discussed. Pt and family would like her to d/c to home at the appropriate time, with hospice if that is decided as appropriate. Milagro is agreeable to hospice. . Subjective Subjective Patient reports: no new complaints and afebrile; denies nausea or vomiting Interval history since last seen: Slept for appx 6 hours on BiPAP overnight. Still wants to sleep more this AM. Poor appetite Exam Narrative Exam Narrative: General: Pleasant elderly female who is asleep but wakens to voice. Appears fatigued. No current resp. distress noted. HEENT: EOMI, MMM Heart: RRR Lungs: Clear anteriorly. Abdomen: soft, nontender, nondistended Extremities: BLE nonpitting edema. Objective Last Vital Signs Temp 37.0 C 01/25/22 12:25 Pulse 59 L 01/25/22 14:01 Resp 18 01/25/22 14:01 BP 119/37 L 01/25/22 14:01 Pulse Ox 88 L 01/25/22 14:01 Laboratory Results - last 24 hr 01/24/22 01/25/22 01/25/22 23:15 05:10 05:10 WBC 12.65 H RBC 4.17 Hgb 12.1 Hct 37.3 MCV 89 MCH 29.0 MCHC 32.4 RDW 13.8 Plt Count 235 MPV 10.9 APTT 42.2 H Sodium 126 L Potassium 4.2 Chloride 89 L Carbon Dioxide 26.2 Anion Gap 10.8 BUN 97 H* Creatinine 4.6 H* Est GFR (CKD-EPI 2020) 8.85 Glucose 130 H Calcium 8.4 L Total Bilirubin 0.2 AST 20 ALT 19 Alkaline Phosphatase 54 Total Protein 6.3 L Albumin 2.7 L Procalcitonin Add-On Test Request 01/25/22 01/25/22 01/25/22 05:10 05:10 05:10 WBC RBC Hgb Hct MCV MCH MCHC RDW Plt Count MPV APTT 74.5 H Sodium Potassium Chloride Carbon Dioxide Anion Gap BUN Creatinine Est GFR (CKD-EPI 2020) Glucose Calcium Total Bilirubin AST ALT Alkaline Phosphatase Total Protein Albumin Procalcitonin 0.7 Add-On Test Request DONE 01/25/22 13:00 WBC RBC Hgb Hct MCV MCH MCHC RDW Plt Count MPV APTT Cancelled Sodium Potassium Chloride Carbon Dioxide Anion Gap BUN Creatinine Est GFR (CKD-EPI 2020) Glucose Calcium Total Bilirubin AST ALT Alkaline Phosphatase Total Protein Albumin Procalcitonin Add-On Test Request
--- NOTE | 2022-01-25 16:27 | PHA.REVIEW2 ---
Pharmacy Admission Review - Admission Clinical Review (Last Reviewed 01/22/22 @ 07:37 by Sebastian Morgan) Counseling regarding advanced care planning and goals of care (Acute) Ventricular tachycardia, polymorphic (Acute) Discharge planning issues (Acute) DVT prophylaxis (Acute) Acute on chronic respiratory failure with hypoxia and hypercapnia (Acute) Acute kidney injury superimposed on chronic kidney disease (Acute) JARRETT (acute kidney injury) (Acute) NSTEMI (non-ST elevated myocardial infarction) (Acute) Influenza (Acute) Atrial fibrillation (Acute) UTI (urinary tract infection) (Acute) COPD exacerbation (Acute) aspirin Adverse Reaction (Mild, Unverified 11/24/21 12:28) erythromycin base Adverse Reaction (Mild, Unverified 11/24/21 12:28) lisinopril Adverse Reaction (Mild, Unverified 11/24/21 12:28) Resuscitation Status DNR/DNI Height 4 ft 11 in Weight 79 kg - Renal Dosing Renal Dosing: BUN 97 mg/dL (7-18) H* 01/25/22 05:10 Creatinine 4.6 mg/dL (0.55-1.02) H* 01/25/22 05:10 Medications needing adjustments: Reviewed ( crcl ~ 7.6 ) - Anticoagulation Anticoagulation: Hgb 12.1 g/dL (11.2-15.7) 01/25/22 05:10 Hct 37.3 % (36.0-46.0) 01/25/22 05:10 Plt Count 235 10^3/uL (130-400) 01/25/22 05:10 Creatinine 4.6 mg/dL (0.55-1.02) H* 01/25/22 05:10 DVT Prophylaxis: Reviewed Medications: Apixaban Therapeutic Anticoagulation: Reviewed (heparin drip dc'd, apixiban re-started) Medications: Apixaban (apixiban 2.5 mg BID -- discussed use in renal failure w/ Dr. Pena - benefits outweigh risks. Pt is already on renally adjusted dose, guidelines do not recommend further dose adjustment for crcl <10) - Opiate Usage Evaluate Pain Scale/Pains Meds: N/A - Relevant Labs Sodium 126 mmol/L (136-145) L 01/25/22 05:10 Potassium 4.2 mmol/L (3.5-5.1) 01/25/22 05:10 Chloride 89 mmol/L (98-107) L 01/25/22 05:10 Magnesium 2.8 mg/dL (1.8-2.4) H 01/23/22 02:49 Electrolytes, C-Reactive P, ESR: Reviewed - DM Control DM Control: Glucose 130 mg/dL (74-106) H 01/25/22 05:10 DM Control: N/A - Cardiac Review Cardiac Review: Troponin I 59 ng/L (<or=60) 01/23/22 09:00 NT-Pro-B Natriuret Pep > 08631 pg/mL (<300) H 01/21/22 17:00 BP, HR, EF%: Reviewed (pt has decided against [place]ing [place] [facility] [place], heparin drip dc'd) - Qtc Review QTc: Reviewed ( QTc = 621 ) - IV to PO Switch IV Medications: Reviewed - Home Meds Home Med List reviewed: Reviewed - Current meds Current Medication Order Review: Reviewed Antibiotic Activity - Pharmacy Antibiotic Review Pharmacy Antibiotic Activity: Reviewed, no change - Antibiotic Information Antibiotic Review Info: indication: pneumonia/UTI. ceftriaxone increased from 1g to 2 g daily -- WBC up, increased pulmonary edema
[2022-01-25] MEDS: cefTRIAXone 2 GM/50 ML BAG IVPB (19:55)
[2022-01-25] MEDS: Normal Saline Flush 10 ML SYR IVP (20:00)
[2022-01-25] MEDS: Atorvastatin 20 MG TAB PO (21:43)
[2022-01-25] MEDS: LORazepam 2 MG/ML VIAL 0.5 MG IV (21:43)
[2022-01-26] VITALS (29 sets, daily range): BP systolic 124–188; BP diastolic 48–87; PULSE 59–76; RESP 7–26; TEMP 36.2–36.5; O2SAT 91–98
[2022-01-26] MEDS: Albuterol/Ipratropium 3 ML UPD VIAL UPD ×2 (05:33→11:54)
[2022-01-26] MEDS: Metoprolol 12.5 MG TAB PO ×3 (06:17→22:14)
--- NOTE | 2022-01-26 09:25 | PDOC.CMPRO ---
- If Service Date Differs Date of service: 01/26/22 Time of Service: 09:25 Care Management Progress Note S/O: Milagro was sleeping when CM went to the ICU to meet with her. She continues to require close monitoring and treatment. Anticipate, Milagro will discharge home with 24/7 family support in the next couple of days. Per provider, family may consider home with Hospice dependent on patients condition. Per nursing, Milagro's food intake is poor, she is weak and tired. A: 86 year old female admitted to [facility] on 01/21/22 for NSTEMI, CHF Exacerbation, Flu A, COPD Exacerbation. P: Per Palliative provider, Milagro does not want to transfer to [facility] for a defibrillator and was very clear that she wanted to go home when medically able. Anticipate, Milagro will discharge home with 24/7 caregiver support from family with New [facility] RN/PT/OT/REDIPPER, if indicated. May consider home with Hospice depending on patients condition. She will transport via private vehicle vs. EMS (depending on mobility). CM will continue to follow.
[2022-01-26] MEDS: methylPREDNISolone SUCC 40 MG VIAL IVP (09:45)
[2022-01-26] MEDS: Normal Saline Flush 10 ML SYR IVP (09:46)
[2022-01-26] MEDS: Ascorbic Acid 500 MG TAB PO (09:46)
[2022-01-26] MEDS: Pantoprazole 40 MG VIAL IVP (09:46)
[2022-01-26] MEDS: Clotrimazole 1% 15 GM TUBE TP (10:35)
[2022-01-26] MEDS: Nystatin CREAM 30 GM TUBE TP (10:35)
[2022-01-26 10:36] LABS: Absolute Basophil Count 0.06 10^3/uL (0.0-0.2); Absolute Lymphocyte Count 0.47 10^3/uL (1.2-3.4); Basophils % 0.4; HCT 39.3 % (36.0-46.0); HGB 12.8 g/dL (11.2-15.7); Immature Grans % 1.4; Lymphocytes % 3.3; MCH 29.2 pg (27.0-33.0); MCHC 32.6 % (32.0-36.0); MCV 90 fL (80-95); MPV 10.6 fL (8.0-11.0); Monocytes % 6.9; Platelet Count 263 10^3/uL (130-400); RBC 4.39 10^6/uL (3.93-5.22); RDW 13.8 % (11.7-14.6); RDW-SD 45.6 fL; WBC 14.11 10^3/uL (4.4-10.8)
[2022-01-26 10:37] LABS: Absolute Monocyte Count 0.97 10^3/uL (0.1-0.8); Absolute Neutrophil Count 12.42 10^3/uL (1.2-6.7)
[2022-01-26] MEDS: Normal Saline 250 ML IV (10:38)
[2022-01-26 10:50] LABS: Calcium 8.6 mg/dL (8.5-10.1); Chloride 92 mmol/L (98-107); Estimated GFR 10.46 (mL/min/1.73m2); Glucose 124 mg/dL (74-106); Magnesium 2.9 mg/dL (1.8-2.4); Potassium 4.3 mmol/L (3.5-5.1); Sodium 130 mmol/L (136-145)
[2022-01-26 10:58] LABS: BUN 102 mg/dL (7-18)
[2022-01-26] MEDS: Apixaban 2.5 MG TAB PO (15:39)
[2022-01-26] MEDS: Normal Saline 1,000 ML 30 ML IV (15:58)
--- NOTE | 2022-01-26 19:12 | PGE_ITS ---
Date of Service Date of service: 01/26/22 Time of Service: 19:12 Assessment and Plan Assessment and plan (1) Ventricular tachycardia, polymorphic: Status: Acute Assessment and plan: IN a patient w/ h/o prolonged QT, s/p pacemaker. Unclear reason for Vtach - was it triggered by the prolonged QT, underlying ischemia, or acute respiratory or infectious process. She has made decision, during palliative consultation, not to transfer from [facility] for ICD placement. Stable currently on telemetry. (2) Acute on chronic respiratory failure with hypoxia and hypercapnia: Status: Acute Assessment and plan: Due to a combination of COPD exacerbation in setting of Influenza A and acute on chronic systolic CHF w/ LVEF of 46% per last echo in our system (05/27). Her diuretic held for 3 days other than a 20mg IV dose on 01/25 d/t deteriorating renal function. CXR: Cardiomegaly.? Bipolar pacemaker.? Pulmonary venous hypertension but no radha airspace pulmonary edema.? Appearance is unchanged from 01/21/2022. Her procalcitonin is elevated at 0.7 and her WBC count is no longer normal; elevated at 12.65 > 14.11 Increased dosage of ceftriaxone. Cont BiPAP at night. PRN ativan for tachypnea / sense of air hunger. (3) Influenza: Start date: 01/21/22 Status: Acute Assessment and plan: s/p Tamiflu (4) NSTEMI (non-ST elevated myocardial infarction): Start date: 01/21/22 Status: Acute Assessment and plan: Troponin has trended downward. Has been discussed with cardiology. While we cannot rule out underlying ischemia, especially with Vtach at home, demand ischemia is also a possibility in setting respiratory failure, CHF, COPD exacerbations, and Vtach could have also provided some demand. Allergic to aspirin. There is no strong evidence that this is ACS. For this reason, plavix is not getting started. Now back on Eliquis 2.5mg BID. (5) COPD exacerbation: Start date: 01/21/22 Status: Acute Assessment and plan: Continue to treat with BiPAP, nebs, steroids, ceftriaxone. Influenza was treated with Tamiflu. Stable. (6) CHF (congestive heart failure): Status: Chronic Assessment and plan: As above LVEF was 46% in 05/27. Echocardiogram 01/24/22: Mild concentric left ventricular hypertrophy.? Normal left ventricular chamber size.? Estimated ejection fraction is 50 to 55% without segmental wall motion abnormalities Poor po fluid intake. 250ml NS bolus given along with lasix 20mg IV then another 250ml bolus; yesterday. + peripheral edema. STarted NS at 30ml/hr today. Qualifiers: Heart failure type: systolic Heart failure chronicity: acute on chronic Qualified Code(s): I50.23 - Acute on chronic systolic (congestive) heart failure (7) Atrial fibrillation: Status: Acute Assessment and plan: Rate controlled, chronic, on metoprolol. Back on Eliquis 2.5mg BID now that there is no plan for an ICD placement. Cont metoprolol. (8) UTI (urinary tract infection): Start date: 01/19/22 Status: Acute Assessment and plan: Due to E. Coli, present on admission. She was treated with rocephin for the UTI, but will continue (at a 2g/daily dose) now that WBC count has increased. Possibly pulmonary infectioius source. Recheck UA; Question of reinfection with organism not sensitive to rocephin? (9) Acute kidney injury superimposed on chronic kidney disease: Status: Acute Assessment and plan: Possibly cardiorenal. Creatinine has decreased from 4.6 to 4.0. BUN, however has increased to 102. Now on gentle hydration of NS at 30ml/hr. Still holding scheduled lasix. See above regarding echo. Monitor Cr. Avoid nephrotoxic drugs. (10) DVT prophylaxis: Status: Acute Assessment and plan: Eliquis (11) Discharge planning issues: Status: Acute Assessment and plan: DNR/DNI. Keep in ICU. Palliative consult appreciated. Planning to continue treatments at this time but the subject of hospice was discussed. Pt and family would like her to d/c to home at the appropriate time, with hospice if that is decided to be appropriate. Milagro is agreeable to hospice. . Subjective Subjective Patient reports: afebrile; denies vomiting Interval history since last seen: She only stayed on BiPAP for 2 hours last PM. Some intake of Ensure yesterday; less intake today. Exam Narrative Exam Narrative: General: Ill appearing elderly female. Asleep; wakens to voice. Does softly a nswer questions. HEENT: EOMI, MMM Heart: RRR Lungs: Clear anteriorly. Abdomen: soft, nontender, nondistended Extremities: BLE nonpitting edema. Objective Last Vital Signs Temp 36.2 C L 01/26/22 11:24 Pulse 59 L 01/26/22 18:01 Resp 17 01/26/22 18:01 BP 140/55 L 01/26/22 18:01 Pulse Ox 97 01/26/22 18:01 Laboratory Results - last 24 hr 01/26/22 01/26/22 10:25 10:25 WBC 14.11 H RBC 4.39 Hgb 12.8 Hct 39.3 MCV 90 MCH 29.2 MCHC 32.6 RDW 13.8 Plt Count 263 MPV 10.6 Immature Gran % 1.4 Neutrophils % 88.0 Lymphocytes % 3.3 Monocytes % 6.9 Eosinophils % 0.0 Basophils % 0.4 Nucleated RBC % 0.0 Absolute Neutrophils 12.42 H Absolute Lymphocytes 0.47 L Absolute Monocytes 0.97 H Absolute Eosinophils 0.00 Absolute Basophils 0.06 Sodium 130 L Potassium 4.3 Chloride 92 L Carbon Dioxide 28.0 Anion Gap 10.0 BUN 102 H* Creatinine 4.0 H* Est GFR (CKD-EPI 2020) 10.46 Glucose 124 H Calcium 8.6 Magnesium 2.9 H
[2022-01-26] MEDS: cefTRIAXone 2 GM/50 ML BAG IVPB (20:28)
[2022-01-26] MEDS: Atorvastatin 20 MG TAB PO (22:13)
[2022-01-26] MEDS: QUEtiapine 25 MG TAB PO (22:14)
[2022-01-27] VITALS (34 sets, daily range): BP systolic 134–167; BP diastolic 53–75; PULSE 55–75; RESP 2–28; TEMP 36.2–36.9; O2SAT 93–99
[2022-01-27] MEDS: Metoprolol 12.5 MG TAB PO ×2 (05:59→21:48)
[2022-01-27] MEDS: Albuterol/Ipratropium 3 ML UPD VIAL UPD ×4 (05:59→23:42)
[2022-01-27 07:22] LABS: Abs Immature Grans 0.32 10^3/uL (0.0-0.06); Absolute Basophil Count 0.04 10^3/uL (0.0-0.2); Absolute Eosinophil Count 0.13 10^3/uL (0.0-0.7); Absolute Lymphocyte Count 0.39 10^3/uL (1.2-3.4); Absolute Monocyte Count 0.75 10^3/uL (0.1-0.8); Absolute Neutrophil Count 11.31 10^3/uL (1.2-6.7); Basophils % 0.3; HCT 39.3 % (36.0-46.0); HGB 12.8 g/dL (11.2-15.7); Immature Grans % 2.5; MCH 28.9 pg (27.0-33.0); MCHC 32.6 % (32.0-36.0); MCV 89 fL (80-95); MPV 11.7 fL (8.0-11.0); Monocytes % 5.8; Neutrophils % 87.4; Platelet Count 205 10^3/uL (130-400); RBC 4.43 10^6/uL (3.93-5.22); RDW 14.2 % (11.7-14.6); RDW-SD 46.1 fL; WBC 12.94 10^3/uL (4.4-10.8)
[2022-01-27 07:32] LABS: Bilirubin Negative (Negative); Blood Trace-intact (Negative); Clarity Clear (Clear); Glucose Negative (Negative); Ketones Negative (Negative); Leukocyte Esterase Trace (Negative); Nitrite Negative (Negative); Urobilinogen 0.2 EU/dL (Up TO 0.2); pH 5.5 (5-8)
[2022-01-27 07:40] LABS: Bacteria Rare HPF (Negative); C & S Indicated? Yes; Casts 0-2 Hyaline LPF (Negative); Crystals Few Amorphous HPF (Negative); Epithelial Cells Few HPF (Negative); Mucus Negative (Negative); RBC 0-2 HPF (0-2); WBC 0-2 HPF (0-5)
[2022-01-27 07:47] LABS: Anion Gap 11.3 mmol/L (3-11); CO2 26.7 mmol/L (21.0-32.0); CREATININE 3.3 mg/dL (0.55-1.02); Calcium 8.5 mg/dL (8.5-10.1); Chloride 97 mmol/L (98-107); Estimated GFR 13.18 (mL/min/1.73m2); Glucose 119 mg/dL (74-106); Potassium 4.4 mmol/L (3.5-5.1); Sodium 135 mmol/L (136-145)
[2022-01-27 08:11] LABS: BUN 97 mg/dL (7-18)
--- NOTE | 2022-01-27 09:12 | PDOC.CMPRO ---
- If Service Date Differs Date of service: 01/27/22 Time of Service: 09:12 Care Management Progress Note S/O: Milagro was lying in bed resting when CM attempted to meet with her. Per RN, she has intermittent periods of lucidity, but is otherwise confused. CM called and spoke to her daughter, Beatriz, who stated that she is looking for a hospital bed for her mother to come home. She is arranging 24hour caregivers. CM discussed the benefits of Hospice, including equipment needs, as she has been considering initiating hospice for her mother, in order to get her home when she is stable. She stated that she does not want her to come home too early, when she is not medically ready. Per report, MD would like to monitor her overnight to determine if she will return to her baseline on this admission. Palliative is planning to meet with Latanya this afternoon. CM will continue to follow. A: 86 year old female admitted to [facility] on 01/21/22 for NSTEMI, CHF Exacerbation, Flu A, COPD Exacerbation. P: Per Palliative provider, Milagro does not want to transfer to [facility] [place] for a defibrill[place] and was very clear that she wanted to go home when medically able. Anticipate, Milagro will discharge home with 24/7 caregiver support from family with New [facility] RN/PT/OT/[employer], if indicated. May consider home with Hospice depending on patients condition. She will transport via private vehicle vs. EMS (depending on mobility). CM will continue to follow.
[2022-01-27] MEDS: methylPREDNISolone SUCC 40 MG VIAL IVP (10:01)
[2022-01-27] MEDS: Pantoprazole 40 MG VIAL IVP (10:01)
[2022-01-27] MEDS: Acetaminophen 325 MG TAB PO (10:02)
[2022-01-27] MEDS: Ascorbic Acid 500 MG TAB PO (10:02)
[2022-01-27] MEDS: Apixaban 2.5 MG TAB PO ×2 (10:02→21:49)
[2022-01-27] MEDS: Nystatin CREAM 30 GM TUBE TP ×2 (12:03→21:48)
[2022-01-27] MEDS: Clotrimazole 1% 15 GM TUBE TP ×2 (12:04→21:48)
--- NOTE | 2022-01-27 15:34 | W.PM.PROGNOT ---
Date of Service Date of service: 01/27/22 Time of Service: 15:34 Assessment and Plan Assessment and plan (1) Ventricular tachycardia, polymorphic: Status: Acute Assessment and plan: IN a patient w/ h/o prolonged QT, s/p pacemaker. Unclear reason for Vtach - was it triggered by the prolonged QT, underlying ischemia, or acute respiratory or infectious process. She has made decision, during palliative consultation, not to transfer from [facility] for ICD placement. Stable currently on telemetry. (2) Acute on chronic respiratory failure with hypoxia and hypercapnia: Status: Acute Assessment and plan: Due to a combination of COPD exacerbation in setting of Influenza A and acute on chronic systolic CHF w/ LVEF of 46% per last echo in our system (05/27). Her diuretic held for 3 days other than a 20mg IV dose on 01/25 d/t deteriorating renal function. CXR: Cardiomegaly.? Bipolar pacemaker.? Pulmonary venous hypertension but no radha airspace pulmonary edema.? Appearance is unchanged from 01/21/2022. Her procalcitonin is elevated at 0.7 and her WBC count elevated at 12.65 > 14.11, but now improved to 12.94. Increased dosage of ceftriaxone to 2g Q24H. Cont BiPAP at night and when sleeping during day. PRN ativan for tachypnea / sense of air hunger. (3) Influenza: Start date: 01/21/22 Status: Acute Assessment and plan: s/p Tamiflu (4) NSTEMI (non-ST elevated myocardial infarction): Start date: 01/21/22 Status: Acute Assessment and plan: Troponin has trended downward. Has been discussed with cardiology. While we cannot rule out underlying ischemia, especially with Vtach at home, demand ischemia is also a possibility in setting respiratory failure, CHF, COPD exacerbations, and Vtach could have also provided some demand. Allergic to aspirin. There is no strong evidence that this is ACS. For this reason, plavix is not getting started. Now back on Eliquis 2.5mg BID. (5) COPD exacerbation: Start date: 01/21/22 Status: Acute Assessment and plan: Continue to treat with BiPAP, nebs, steroids, ceftriaxone. Influenza was treated with Tamiflu. Stable. (6) CHF (congestive heart failure): Status: Chronic Assessment and plan: As above LVEF was 46% in 05/27. Echocardiogram 01/24/22: Mild concentric left ventricular hypertrophy.? Normal left ventricular chamber size.? Estimated ejection fraction is 50 to 55% without segmental wall motion abnormalities Poor po fluid intake. 250ml NS bolus given along with lasix 20mg IV then another 250ml bolus; on 01/25. Started NS at 30ml/hr on 01/26. Qualifiers: Heart failure type: systolic Heart failure chronicity: acute on chronic Qualified Code(s): I50.23 - Acute on chronic systolic (congestive) heart failure (7) Atrial fibrillation: Status: Acute Assessment and plan: Rate controlled, chronic, on metoprolol. Back on Eliquis 2.5mg BID now that there is no plan for an ICD placement. Cont metoprolol. (8) UTI (urinary tract infection): Start date: 01/19/22 Status: Acute Assessment and plan: Due to E. Coli, present on admission. She was treated with rocephin for the UTI, but will continue (at a 2g/daily dose) now that WBC count has increased. Possibly pulmonary infectioius source. Recheck UA (Question of reinfection with organism not sensitive to rocephin?); Tr leukocyte est., rare bacteria and 0-2 WBC. This did qualify for culture which is pending. (9) Acute kidney injury superimposed on chronic kidney disease: Status: Acute Assessment and plan: Possibly cardiorenal. Creatinine has decreased from 4.6 to 4.0 and now3/3. BUN increased to 102 and then 97. Now on gentle hydration of NS at 30ml/hr. Urine outpt has improved. Still holding scheduled lasix. See above regarding echo. Monitor Cr. Avoid nephrotoxic drugs. (10) DVT prophylaxis: Status: Acute Assessment and plan: Eliquis (11) Discharge planning issues: Status: Acute Assessment and plan: DNR/DNI. Keep in ICU. Palliative consult appreciated. Planning to continue treatments at this time but the subject of hospice was discussed. Pt and family would like her to d/c to home at the appropriate time, with hospice if that is decided to be appropriate. Milagro is agreeable to hospice. . Subjective Subjective Patient reports: tolerating liquids well and afebrile; denies blood in stool or vomiting Exam Narrative Exam Narrative: General: Ill appearing elderly female. Asleep; wakens to voice. Does softly answer questions. Asks for tea. HEENT: EOMI, MMM Heart: RRR Lungs: Clear anteriorly. Abdomen: soft, nontender, nondistended Extremities: BLE nonpitting edema. Objective Last Vital Signs Temp 36.6 C 01/27/22 12:00 Pulse 60 01/27/22 13:00 Resp 15 01/27/22 13:00 BP 142/58 H 01/27/22 12:01 Pulse Ox 98 01/27/22 13:00 Laboratory Results - last 24 hr 01/27/22 01/27/22 01/27/22 06:00 06:30 06:30 WBC 12.94 H RBC 4.43 Hgb 12.8 Hct 39.3 MCV 89 MCH 28.9 MCHC 32.6 RDW 14.2 Plt Count 205 MPV 11.7 H Immature Gran % 2.5 Neutrophils % 87.4 Lymphocytes % 3.0 Monocytes % 5.8 Eosinophils % 1.0 Basophils % 0.3 Nucleated RBC % 0.0 Absolute Neutrophils 11.31 H Absolute Lymphocytes 0.39 L Absolute Monocytes 0.75 Absolute Eosinophils 0.13 Absolute Basophils 0.04 Sodium 135 L Potassium 4.4 Chloride 97 L Carbon Dioxide 26.7 Anion Gap 11.3 H BUN 97 H* Creatinine 3.3 H Est GFR (CKD-EPI 2020) 13.18 Glucose 119 H Calcium 8.5 Urine Color Yellow Urine Clarity Clear Urine pH 5.5 Ur Specific [place] 1.010 Urine Protein 30 H Urine Ketones Negative Urine Blood Trace-intact H Urine Nitrite Negative Urine Bilirubin Negative Urine Urobilinogen 0.2 Ur Leukocyte Esterase Trace H Urine RBC 0-2 Urine WBC 0-2 Ur Epithelial Cells Few Urine Crystals Few Amorphous Urine Bacteria Rare Urine Casts 0-2 Hyaline Urine Mucus Negative Ur Culture Indicated? Yes Urine Glucose Negative
--- NOTE | 2022-01-27 19:08 | NUR.NOTE ---
Nursing Note: Pt moved from ICU to [facility] room 225. Patient tucked into bed, noted scattered bruising, has nahid, incont. to stool, IV in place to right forearm. Patient arrived to unit at 1850.
--- NOTE | 2022-01-27 19:18 | W.PALPGNOTE ---
Date of service: 01/27/22 Time of Service: 19:19 Assessment and Plan Assessment and plan (1) Acute on chronic respiratory failure with hypoxia and hypercapnia: Status: Acute (2) Acute kidney injury superimposed on chronic kidney disease: Status: Acute (3) JARRETT (acute kidney injury): Status: Acute (4) NSTEMI (non-ST elevated myocardial infarction): Status: Acute (5) Counseling regarding advanced care planning and goals of care: Status: Acute Assessment and plan: We spoke for a long time about what Milagro's goals are. She wants to go home. She is not willing to go to a rehab. Her children have said that they will figure out a way to accommodate this. She already does receive 6hours/day of care from her granddaughter. She does want to go on hospice. Mostly she said she wants to make it is easy as possible for her children and if hospice will make it easier and she is willing to go on hospice. Family knows that they will be the primary caregivers. Milagro and family understand that in general care is all administered through hospice and that they would be expected to contact hospice prior to 1. They understand that there would be symptom management but that they would not be labs x-rays etc. She teeters between being short of breath due to her congestive heart failure and renal failure. Again her kidney status doing slightly better but her creatinine remains above 3. She does not like using BiPAP and will be transitioned to oxygen 2 L. Her PPS at this point is 30%. She does have [place] heart failure class IV with symptoms at both rest and exertion. She has not been able to be optimally treated due to her poor renal failure. She does not want to pursue EP studies after an episode of ventricular tachycardia she is severely deconditioned at this point and was not able to help to raise herself in the bed. She does have capacity and understands that she most likely has less than 6 months to live. I did speak with family and answered their questions. They understand that is Milagro improves then she will be able to come off of hospice. There has to be great improvement as at this point she is extremely weak. I did speak with Dr. Topete, hospitalist. I recommended hospice consult, transitioning to oxygen 2 L nasal cannula (she can certainly ask for BiPAP at any time but really is not a fan of this), change from ICU setting to floor, and start with some physical therapy to help with strengthening so that family can do a better job taking care of her at home. Family understands this and is in agreement with it. I will continue to follow her Subjective Subjective Interval history since last seen: I am meeting with Milagro, her grandson that lives below her, and her daughter Beatriz. Over the last 2 to 3 days Milagro has slightly improved her creatinine. She still has not been out of bed or engaged in PT. She does not feel as short of breath. Her O2 sats have been in the upper 90s. Staff states that she often times declines certain necessary procedures etc. carlos stated that she is always been that way and you have to make her do things We spoke for some time about how she thinks she is doing, what are her goals, and where she would like to go from here Exam Narrative Exam Narrative: Breathing is less labored than what I saw on Monday. She still is very weak and requires us to pull her up in bed as she was not able to assist us with using her legs. Lungs poor inspiration. Heart difficult to auscultate, rate controlled at this point She often had a humorous way of putting replies Objective Last Vital Signs Temp 97.9 F 01/27/22 12:00 Pulse 62 01/27/22 17:41 Resp 15 01/27/22 17:41 BP 142/58 H 01/27/22 12:01 Pulse Ox 99 01/27/22 17:41 Laboratory Results - last 24 hr 01/27/22 01/27/22 01/27/22 06:00 06:30 06:30 WBC 12.94 H RBC 4.43 Hgb 12.8 Hct 39.3 MCV 89 MCH 28.9 MCHC 32.6 RDW 14.2 Plt Count 205 MPV 11.7 H Immature Gran % 2.5 Neutrophils % 87.4 Lymphocytes % 3.0 Monocytes % 5.8 Eosinophils % 1.0 Basophils % 0.3 Nucleated RBC % 0.0 Absolute Neutrophils 11.31 H Absolute Lymphocytes 0.39 L Absolute Monocytes 0.75 Absolute Eosinophils 0.13 Absolute Basophils 0.04 Sodium 135 L Potassium 4.4 Chloride 97 L Carbon Dioxide 26.7 Anion Gap 11.3 H BUN 97 H* Creatinine 3.3 H Est GFR (CKD-EPI 2020) 13.18 Glucose 119 H Calcium 8.5 Urine Color Yellow Urine Clarity Clear Urine pH 5.5 Ur Specific [place] 1.010 Urine Protein 30 H Urine Ketones Negative Urine Blood Trace-intact H Urine Nitrite Negative Urine Bilirubin Negative Urine Urobilinogen 0.2 Ur Leukocyte Esterase Trace H Urine RBC 0-2 Urine WBC 0-2 Ur Epithelial Cells Few Urine Crystals Few Amorphous Urine Bacteria Rare Urine Casts 0-2 Hyaline Urine Mucus Negative Ur Culture Indicated? Yes Urine Glucose Negative Palliative Performance Scale % Ambulation Activity and Evidence of Disease Self Care Intake Level of Consciousness 100 Full Normal activity, no evidence of disease Full Normal Full 90 Full Normal activity, some evidence of disease Full Normal Full 80 Full Normal activity with effort, some evidence of disease Full Normal or reduced Full 70 Reduced Unable to do normal work, some evidence of disease Full Normal or reduced Full 60 Reduced Unable to do hobby or some housework, significant disease Occasional assist necessary Normal or reduced Full or confusion 50 Mainly sit/lie Unable to do any work, extensive disease Considerable assistance required Normal or reduced Full or confusion 40 Mainly in bed Unable to do any work, extensive disease Mainly assistance Normal or reduced Full, drowsy, or confusion 30 Totally bed bound Unable to do any work, extensive disease Total care Reduced Full, drowsy, or confusion 20 Totally bed bound Unable to do any work, extensive disease Total care Minimal sips Full, drowsy, or confusion 10 Totally bed bound Unable to do any work, extensive disease Total care Mouth care only Drowsy or coma 0 - - - - Patient Score: 30%
[2022-01-27] MEDS: cefTRIAXone 2 GM/50 ML BAG IVPB (20:12)
[2022-01-27] MEDS: Normal Saline Flush 10 ML SYR IVP (20:13)
[2022-01-27] MEDS: Atorvastatin 20 MG TAB PO (21:48)
[2022-01-27] MEDS: HYDROmorphone 2 MG/ML SYR 0.5 MG IVP (23:08)
[2022-01-27] MEDS: Normal Saline 1,000 ML 30 ML IV (23:44)
[2022-01-28] VITALS (10 sets, daily range): BP systolic 116–189; BP diastolic 67–78; PULSE 55–65; RESP 4–20; TEMP 36.2–36.9; O2SAT 94–97
[2022-01-28] MEDS: Metoprolol 12.5 MG TAB PO (06:44)
[2022-01-28] MEDS: Albuterol/Ipratropium 3 ML UPD VIAL UPD ×4 (06:44→23:30)
[2022-01-28 07:17] LABS: BE (Venous) 0 mmol/L (-2-3); HCO3 (Venous) 25 mmol/L (23-28); O2 Sat (Venous) 99 %; TCO2 (Venous) 22 mmol/L (24-29); pCO2 (Venous) 39 mmHg (41-51); pH (Venous) 7.41 (7.31-7.41); pO2 (Venous) 145 mmHg
[2022-01-28 07:22] LABS: HCT 42.4 % (36.0-46.0); HGB 13.6 g/dL (11.2-15.7); MCHC 32.1 % (32.0-36.0); MCV 90 fL (80-95); MPV 10.9 fL (8.0-11.0); Platelet Count 241 10^3/uL (130-400); RBC 4.69 10^6/uL (3.93-5.22); RDW 14.4 % (11.7-14.6); RDW-SD 47.7 fL
[2022-01-28 07:46] LABS: ALT 17 U/L (14-59); AST 22 U/L (15-37); Albumin 2.4 g/dL (3.4-5.0); Alkaline Phosphatase 53 U/L (46-116); Anion Gap 9.8 mmol/L (3-11); Bilirubin, Total 0.2 mg/dL (0.2-1.0); CO2 25.2 mmol/L (21.0-32.0); CREATININE 2.8 mg/dL (0.55-1.02); Calcium 8.7 mg/dL (8.5-10.1); Chloride 103 mmol/L (98-107); Estimated GFR 16.05 (mL/min/1.73m2); Glucose 151 mg/dL (74-106); Potassium 4.3 mmol/L (3.5-5.1); Sodium 138 mmol/L (136-145); Total Protein 6.2 g/dL (6.4-8.2)
[2022-01-28 07:52] LABS: Absolute Monocyte Count 0.92 10^3/uL (0.1-0.8); Absolute Neutrophil Count 14.23 10^3/uL (1.2-6.7); Bands % 1; Diff Comment Manual Differential; Metamyelocytes % 1; RBC Morphology Normal
[2022-01-28 07:52] LABS: BUN 90 mg/dL (7-18)
[2022-01-28] MEDS: Nystatin CREAM 30 GM TUBE TP ×2 (08:29→19:22)
[2022-01-28] MEDS: Apixaban 2.5 MG TAB PO ×2 (08:29→19:21)
[2022-01-28] MEDS: Clotrimazole 1% 15 GM TUBE TP ×2 (08:29→19:22)
[2022-01-28] MEDS: Ascorbic Acid 500 MG TAB PO (08:29)
[2022-01-28] MEDS: Pantoprazole 40 MG VIAL IVP (08:30)
[2022-01-28] MEDS: methylPREDNISolone SUCC 40 MG VIAL IVP (08:30)
[2022-01-28] MEDS: Normal Saline Flush 10 ML SYR IVP ×2 (08:30→11:53)
--- NOTE | 2022-01-28 09:00 | PT.INIE ---
Date of service: 01/28/22 Time of Service: 09:00 PT Notes Visit Reasons: NSTEMI, CHF Exacerbation,Flu A, COPD Exacerbation, Physical Therapy Inpatient Initial Evaluation Date: 01/28/2022 Referring Doctor: Pedrito Escobar MD PT Orders: PT CONSULT: Eval/treat Precautions: Fall. Standard. Activity as tolerated. Patient Profile/Admitting Diagnosis: Milagro is an 86-year-old female with past medical history significant for atrial fibrillation with pacemaker in place (without defibrillator) who presented to the ED on 01/21/2022 due to increasing shortness of breath and a syncopal episode that happened 2 days prior to admission. Patient is diagnosed with influenza a, acute on chronic respiratory failure with hypoxia and hypercapnia, acute on chronic kidney disease, NSTEMI, COPD exacerbation, CHF with EF of 46%, and a UTI. Palliative care goals as of 01/27/2022 included patient going on hospice whenever medically ready with a goal of discharging from it when a possibility of regaining adequate strength for improved mobility performance to ensure safety of patient and family/caregivers at home. PMHX: All Active Problems? JARRETT (acute kidney injury) (Acute) NSTEMI (non-ST elevated myocardial infarction) (Acute) Influenza (Acute) CKD (chronic kidney disease) (Chronic) Cellulitis of right lower extremity (Acute) Atrial fibrillation (Acute) COPD (chronic obstructive pulmonary disease) (Chronic) CHF (congestive heart failure) (Chronic) Primary osteoarthritis of right knee (Acute 05/01/17) Steroid injection: 10/25/21; 04/12/21; 07/13/2020; 04/13/2020; 11/29/18; 06/25/2018; 05/01/17; 11/02/16; 04/04/16 ZILRETTA: 07/19/21Primary osteoarthritis of left knee (Acute 08/13/15) Steroid injection: 10/25/21; 04/12/21; 04/13/2020; 11/29/18; 06/25/2018; 12/27/17; 08/21/17; 05/01/17; 11/02/16; 04/04/16; 08/13/15 Synvisc injection: 07/13/2020; 11/01/17 LOBO: 07/19/21UTI (urinary tract infection) (Acute) Generalized weakness (Acute) Dehydration (Acute) Hyperglycemia (Acute) Chest pain (Acute) COPD exacerbation (Acute) Hypokalemia (Acute) Constipation (Acute) Social History/Home Situation: Patient lives with daughter who is the main caregiver for patient. She is no longer ambulatory but is able to transfer with assist of 1 person from bed to chair prior to admission. Granddaughter Myranda corroborates this. Equipment Owned/DME: [facility]. Per lorenzahernandez [facility], patient has all needed DME except for a hospital bed which is currently being processed Subjective: Agreeable to just standing up with assist of 2 for this session. Complains of being sleepy as she has not had a restful sleep last night. Reports being fatigued after a short satdning activity. Objective: General Observation: Seated on chair, reclined. In NAD. Increased trunk lean to L trying to relieve R gluteal area. IV in R UE. Oxygen supplementation via NC. Short of breath while talking. Telemetry monitoring in place. Mental Status: Alert and oriented as to person only. Able to pay attention for a short time. Ffollows single step commands. Short-term memory moderately impaired, repetition of instructions needed. Pain: Reports some pain in B knees and hips Vital Signs: WNL as closley monitored via tele ROM: Right Upper Extremity: Shoulder Flexion lacks the last 25% of available AROM. Shoulder abduction lacks the last 25% of available AROM. Elbow flexion WFL. Wrist flexion WFL. Functional opening and closing of hand WFL. Left Upper Extremity: Shoulder Flexion lacks the last 50% of available AROM. Shoulder abduction lacks the last 50% of available AROM. Elbow flexion lacks the last 50% of available motion. Wrist flexion WFL. Functional opening and closing of hand WFL. Right Lower Extremity: Hip flexion lacks the last 75% of available AROM. Hip abduction lacks the last 75% of available AROM. Knee flexion lacks 50% of available motion. Ankle dorsiflexion to neutral only. Ankle plantarflexion WFL. Left Lower Extremity: Hip flexion lacks the last 50% of available AROM. Hip abduction lacks the last 50% of available AROM. Knee flexion lacks 25% of available motion. Ankle dorsiflexion to neutral only. Ankle plantarflexion WFL. Strength: Right Upper Extremity: Shoulder flexors 3-/5. Shoulder abductors 3-/5. Elbow flexors 4-/5. Elbow extensors 4-/5. Jewelry Estimator strong. Left Upper Extremity: Shoulder flexors 3-/5. Shoulder abductors 3-/5. Elbow flexors 4-/5. Elbow extensors 4-/5. Jewelry Estimator strong. Right Lower Extremity: Hip flexors 2-/5. Hip abductors 2-/5. Knee flexors 3-/5. Knee extensors 3-/5. Ankle dorsiflexors 3-/5. Ankle plantarflexors 4-/5. Left Lower Extremity: Hip flexors 3-/5. Hip abductors 3-/5. Knee flexors 3-/5. Knee extensors 3-/5. Ankle dorsiflexors 3-/5. Ankle plantarflexors 4-/5. Bed Mobility/Transfers: Sit to stand minimal assist of 2, needed verbal and tactile cueing of B UE to push from arm rest Stand to sit minimal assist of 2, needed verbal and tactile cueing of B UE to push from arm rest THERA ACT: Slow trunk flexion/extension while pulling on armrests x 3 Slow trunk side to side movement while holding onto arm rests x 3 Slow trunk rotation to R and L while holding onto arm rests x 3 Static standing while holding onto FWW with minimal assist of 2 for 2 minutes Gait: Deferred due to report of considerable fatigue Balance: Static Sitting: Good Dynamic Sitting: Fair Static Standing: Poor Dynamic Standing: Poor Special Tests: Mobility Limitations Standardized Measure [facility]-PAC 6 clicks Basic Mobility Inpatient Short Form: Raw Score: 12 CMS Score: 69% deficit Informed Consent/Education: Patient was instructed in purpose of PT consult and plan of care. Family is agreeable to proceed with established PT POC to achieve personal goals per palliative care notes. Assessment: Patient presents with clinical signs and symptoms consistent with current/admitting diagnoses that have resulted to mobility limitations, gait instability, generalized weakness, and overall ADL decline as demonstrated by the following impairment level findings: 1. Decreased strength to B UE/LE major muscle groups 2. Impaired sitting/standing balance 3. Impaired activity tolerance 4. Limitation of joint range of motion in B shoudlers and hips (chronic) 5. Shortness of breath Impairments are contributing to the following functional limitations: 1. Decline in bed mobility skills 2. Decline in transfer skills 4. Increased completion time for mobility ADL performance 5. Increased risk for falls 6. Difficulty with managing steps alone safely Patient is [place] 43875 moderate complexity based on the following: History: 86-year-old female with past medical history as indicated above Examination: Demonstrable impairment in strength, balance, and mobility level with underlying impairments and functional limitations as exhibited above as well as deficit score of 69% utilizing the [facility] Mobility Inpatient Short Form Presentation: Evolving Decision Makin moderate complexity Goals: Goals X1 week 1. Supine-Sit contact guard assist 2. Sit-Supine contact guard assist 3. Sit-Stand contact guard assist 4. Stand-Sit contact guard assist with FWW 5. Bed-Chair minimal assist with FWW 6. Chair-Bed minimal assist with FWW 7. Good static and dynamic sitting balance/tolerance 8. Fair static and dynamic standing balance/tolerance Plan of Care/Treatment Plan: 1x/day, 7 days/week x 1 week. Plan of care has been reviewed with the PANEL EDGE PAINTER providing the service under Physical Therapy direction. PT treatment focus: B functional UE/LE strengthening as tolerated Increase sitting balance -- perform trunk rotation/lateral flexion reaching for objects side to side/up and down to tolerance Improve standing balance and tolerance--may use sit/stand machine or parallel bars Breathing exercises with chest expansion exercises DISCHARGE RECOMMENDATIONS: [] Home with no services [] [X] Home with services. Home when medically stable and cleared by hospitalist. Patient will benefit from home health PT services in order to progress mobility level using FWW, assess home safety, identify additional equipment needs, and establish a functional maintenance program that will increase ability of patient to remain at home with caregiver support. [] Home with outpatient PT [] [] SNF for continued rehabilitation [] [] [employer] [facility] Care [] [] SNF versus LTC based on ability to participate and progress [] TREATMENT CODE/TIME: 35746 x 20 minutes, 9753 0 x 13 minutes beginning at 9:00 AM. Thank you for the opportunity to participate in the care of this patient. Anali Bowers PT, DPT, CLT [facility] [place], [place]
--- NOTE | 2022-01-28 09:22 | CMPROGNOTE_ITS ---
- If Service Date Differs Date of service: 01/28/22 Time of Service: 09:22 Care Management Progress Note S/O: Milagro is sleeping and appears comfortable when CM attempted to meet with her. She is being closely monitored and treated. Per RN, Milagro was restless this morning and required ativan. Milagro and Beatriz plan to meet with Ally from Hospice in the next few days, however Beatriz shares that she works for [employer] and is unsure when she will be available next and will call CM when she gets a better idea of her schedule. Milagro will need a hospital bed on discharge, Beatriz is aware that Hospice would be able to help with DME needs. CM will continue to follow. A: 86 year old female admitted to [facility] on 01/21/22 for NSTEMI, CHF Exacerbation, Flu A, COPD Exacerbation. P: Per Palliative provider, Milagro does not want to transfer to [facility] for a defibrillator and was very clear that she wanted to go home when medically able. Anticipate, Milagro will discharge home with 24/7 caregiver support from family with Full [facility] vs. Hospice services. She will transport via private vehicle vs. EMS (depending on mobility). CM will continue to follow.
--- NOTE | 2022-01-28 11:40 | PTTR_ITS ---
Date of service: 01/28/22 Time of Service: 09:40 PT Notes Visit Reasons: NSTEMI, CHF Exacerbation,Flu A, COPD Exacerbation, Inpatient Physical Therapy Treatment Note [facility] Date: 01/28/2022 PRECAUTIONS: Fall, activity as tolerated, Influenza, confusion SUBJECTIVE: Milagro is agreeable to getting up and transferring back to bed. OBJECTIVE: PAIN: No c/o pain BED MOBILITY/TRANSFERS Rolling L/R: Mod A Sit-supine: Mod A x2 with HOB flat Sit-stand: Mod A x2 Stand-sit: Mod A x2 Chair-bed: Mod A x2 GAIT Assistive Device: SCRUBBER SYSTEM ATTENDANT x2 Weight bearing: Full Assist: Mod A x2 Distance: 3 steps Deviation: Patient requires cueing for posture ASSESSMENT: Patient appears limited due to confusion and weakness. She requires Mod A x2 for all transfers and bed mobility. She is unable to ambulate at this time. PLAN: Continue with transfer training and global strengthening for improved mobility. TREATMENT CODE/TIME: 25 minutes; 27930 x2 (09:40)
[2022-01-28] MEDS: LORazepam 2 MG/ML VIAL 0.5 MG IV ×2 (11:52→21:00)
--- NOTE | 2022-01-28 17:17 | PGE_ITS ---
Date of Service Date of service: 01/28/22 Time of Service: 17:17 Assessment and Plan Assessment and plan (1) Ventricular tachycardia, polymorphic: Status: Acute Assessment and plan: In a patient w/ h/o prolonged QT, s/p pacemaker, ?ACS on this admission, respiratory failure. The patient chose not to have her device upgraded and not to be transferred to [facility] for a cardiac intervention. Home hospice is currently being considered. Will await further disposition planning. (2) Acute on chronic respiratory failure with hypoxia and hypercapnia: Status: Acute Assessment and plan: Due to a combination of COPD exacerbation in setting of Influenza A and acute on chronic systolic CHF w/ LVEF of 46%. Continue scheduled + prn nebs, abx, steroids. Await diposition planning. Off of BiPAP. (3) Influenza: Start date: 01/21/22 Status: Resolved Assessment and plan: Finished treatment w/ Tamiflu (4) NSTEMI (non-ST elevated myocardial infarction): Start date: 01/21/22 Status: Acute Assessment and plan: Likely type 2 NSTEMI rather than a true ACS. There is no strong evidence that this is ACS. Continue Eliquis 2.5mg BID. (5) COPD exacerbation: Start date: 01/21/22 Status: Acute Assessment and plan: As above (6) CHF (congestive heart failure): Status: Chronic Assessment and plan: As above Currently euvolemic. Qualifiers: Heart failure type: systolic Heart failure chronicity: acute on chronic Qualified Code(s): I50.23 - Acute on chronic systolic (congestive) heart failure (7) Atrial fibrillation: Status: Acute Assessment and plan: Rate controlled, chronic, on metoprolol. Continue metoprolol and eliquis. (8) UTI (urinary tract infection): Start date: 01/19/22 Status: Acute Assessment and plan: Likely treated. UA not strongly positive. Await urine C&S. On ceftriaxone. Leucocytosis could be due to infectious causes of Diarrhea - C.Diff pending. (9) Acute kidney injury superimposed on chronic kidney disease: Status: Acute Assessment and plan: Improved w/ IV hydration. IVF d/c'ed. Continue to hold diuretics Monitor Cr. Avoid nephrotoxic drugs. (10) DVT prophylaxis: Status: Acute Assessment and plan: Eliquis (11) Discharge planning issues: Status: Acute Assessment and plan: DNR/DNI. Anticipate discharge home on hospice; pending official hospice consult (which I suspect already happened today) Subjective Subjective Interval history since last seen: Ms Torres is resting. She does wake up to answer some questions, but not others. She cannot tell me her name. She thinks she is on a bus. She denies pain, shortness of breath, nausea. Per nursing, she has not eaten today and has been having diarrhea. Her C.Diff is pending. Family was supposed to have met with hospice today, but I am not sure if it actually happened. Exam Narrative Exam Narrative: General: Elderly female who is resting comfortable, A&Ox0, arousable HEENT: EOMI, MMM Heart: RRR Lungs: Diminished breath sounds B Abdomen: soft, nontender, nondistended Extremities: no edema Objective Last Vital Signs Temp 36.2 C L 01/28/22 15:15 Pulse 60 01/28/22 15:15 Resp 20 01/28/22 15:15 BP 150/78 H 01/28/22 15:15 Pulse Ox 94 01/28/22 15:15 Laboratory Results - last 24 hr 01/28/22 01/28/22 01/28/22 07:03 07:08 07:08 WBC 15.30 H RBC 4.69 Hgb 13.6 Hct 42.4 MCV 90 MCH 29.0 MCHC 32.1 RDW 14.4 Plt Count 241 MPV 10.9 Immature Gran % 0.0 Neutrophils % 92.0 Band Neutrophils % 1 Lymphocytes % 0.0 Monocytes % 6.0 Eosinophils % 0.0 Basophils % 0.0 Metamyelocytes % 1 Nucleated RBC % 0.0 Absolute Neutrophils 14.23 H Absolute Lymphocytes 0.00 L Absolute Monocytes 0.92 H Absolute Eosinophils 0.00 Absolute Basophils 0.00 RBC Morphology Normal VBG pH 7.41 VBG pCO2 39 L VBG pO2 145 VBG HCO3 25 VBG Total CO2 22 L VBG O2 Saturation 99 VBG Base Excess 0 Sodium 138 Potassium 4.3 Chloride 103 Carbon Dioxide 25.2 Anion Gap 9.8 BUN 90 H* Creatinine 2.8 H Est GFR (CKD-EPI 2020) 16.05 Glucose 151 H Calcium 8.7 Total Bilirubin 0.2 AST 22 ALT 17 Alkaline Phosphatase 53 Total Protein 6.2 L Albumin 2.4 L
[2022-01-28] MEDS: cefTRIAXone 2 GM/50 ML BAG IVPB (19:21)
[2022-01-28 20:22] LABS: C Diff PCR Positive (Negative)
[2022-01-29] VITALS (15 sets, daily range): BP systolic 124–160; BP diastolic 58–84; PULSE 60–77; RESP 4–24; TEMP 36.3–37; O2SAT 94–99
[2022-01-29] MEDS: Albuterol/Ipratropium 3 ML UPD VIAL UPD ×3 (06:03→23:04)
[2022-01-29] MEDS: Metoprolol 12.5 MG TAB PO ×3 (06:41→22:15)
[2022-01-29] MEDS: Pantoprazole 40 MG VIAL IVP (09:03)
[2022-01-29] MEDS: Clotrimazole 1% 15 GM TUBE TP ×2 (09:03→19:45)
[2022-01-29] MEDS: Nystatin CREAM 30 GM TUBE TP ×2 (09:03→19:46)
[2022-01-29] MEDS: Normal Saline Flush 10 ML SYR IVP (09:04)
[2022-01-29] MEDS: methylPREDNISolone SUCC 40 MG VIAL IVP (09:04)
[2022-01-29] MEDS: Ascorbic Acid 500 MG TAB PO (09:05)
[2022-01-29] MEDS: Apixaban 2.5 MG TAB PO ×2 (09:05→19:46)
[2022-01-29 09:35] LABS: Abs Immature Grans 1.19 10^3/uL (0.0-0.06); HCT 44.1 % (36.0-46.0); HGB 14.1 g/dL (11.2-15.7); MCH 28.7 pg (27.0-33.0); MCV 90 fL (80-95); MPV 11.1 fL (8.0-11.0); RBC 4.91 10^6/uL (3.93-5.22); RDW 14.6 % (11.7-14.6); RDW-SD 48.2 fL; WBC 13.97 10^3/uL (4.4-10.8)
[2022-01-29 09:47] LABS: Anion Gap 6.6 mmol/L (3-11); BUN 79 mg/dL (7-18); CO2 28.4 mmol/L (21.0-32.0); CREATININE 2.4 mg/dL (0.55-1.02); Calcium 8.9 mg/dL (8.5-10.1); Chloride 104 mmol/L (98-107); Estimated GFR 19.31 (mL/min/1.73m2); Glucose 120 mg/dL (74-106); Magnesium 2.9 mg/dL (1.8-2.4); Potassium 4.1 mmol/L (3.5-5.1); Sodium 139 mmol/L (136-145)
[2022-01-29] MEDS: Cholestyramine/Aspartame PKT 1 EACH PO ×2 (09:51→19:46)
[2022-01-29] MEDS: LORazepam 2 MG/ML VIAL 0.5 MG IV (09:51)
[2022-01-29] MEDS: Normal Saline 500 ML 30 ML IV (09:52)
[2022-01-29] MEDS: metroNIDAZOLE 500 MG/100 ML BAG 100 MG IVPB ×2 (09:52→17:19)
[2022-01-29 10:24] LABS: Absolute Eosinophil Count 0.28 10^3/uL (0.0-0.7); Absolute Lymphocyte Count 0.28 10^3/uL (1.2-3.4); Bands % 3
[2022-01-29 10:25] LABS: Absolute Basophil Count 0.14 10^3/uL (0.0-0.2); Diff Comment Manual Differential; Metamyelocytes % 1; Myelocytes % 1; RBC Morphology Normal
[2022-01-29 10:26] LABS: Platelet Count 251 10^3/uL (130-400)
--- NOTE | 2022-01-29 10:31 | PT.INNT ---
Date of service: 01/29/22 Time of Service: 10:31 PT Notes Visit Reasons: NSTEMI, CHF Exacerbation,Flu A, COPD Exacerbation, 01/29/2022 Per nursing, patient recently medicated and will likely not be able to participate. Attempted to see patient for bed-level exercises, patient not able to participate due to sedated affect. Will attempt to resume PT services Monday, if appropriate.
--- NOTE | 2022-01-29 13:46 | W.PM.PROGNOT ---
Date of Service Date of service: 01/29/22 Time of Service: 13:46 Assessment and Plan Assessment and plan (1) C. difficile colitis: Status: Acute Assessment and plan: Started on IV flayl + PO vanco. IV ceftriaxone d/c'ed. I added probiotics and questran. Monitor for resolution of diarrhea. (2) Ventricular tachycardia, polymorphic: Status: Acute Assessment and plan: In a patient w/ h/o prolonged QT, s/p pacemaker, ?ACS on this admission, respiratory failure. The patient chose not to have her device upgraded and not to be transferred to [facility] for a cardiac intervention. Home hospice is currently being considered. Will await further disposition planning. (3) Acute on chronic respiratory failure with hypoxia and hypercapnia: Status: Acute Assessment and plan: Due to a combination of COPD exacerbation in setting of Influenza A and acute on chronic systolic CHF w/ LVEF of 46%. Continue scheduled + prn nebs, abx, steroids. Await diposition planning. Off of BiPAP. WIll continue to provide supplemental Oxygen via NC. (4) Influenza: Status: Resolved Assessment and plan: Finished treatment w/ Tamiflu (5) NSTEMI (non-ST elevated myocardial infarction): Status: Acute Assessment and plan: Likely type 2 NSTEMI rather than a true ACS. There is no strong evidence that this is ACS. Continue Eliquis 2.5mg BID. Patient decided against transfer for an evaluation for a cardiac intervention. (6) COPD exacerbation: Status: Acute Assessment and plan: As above (7) CHF (congestive heart failure): Status: Chronic Assessment and plan: As above Currently euvolemic. Qualifiers: Heart failure type: systolic Heart failure chronicity: acute on chronic Qualified Code(s): I50.23 - Acute on chronic systolic (congestive) heart failure (8) Atrial fibrillation: Status: Acute Assessment and plan: Rate controlled, chronic, on metoprolol. Continue metoprolol and eliquis. (9) UTI (urinary tract infection): Status: Resolved Assessment and plan: Likely treated. UA not strongly positive. Urine C&S 01/27 NGTD. Given C.diff, ceftriaxone d/'adelso. (10) Acute kidney injury superimposed on chronic kidney disease: Status: Acute Assessment and plan: Improved w/ IV hydration. IVF d/c'ed. Continue to hold diuretics Monitor Cr. Avoid nephrotoxic drugs. (11) DVT prophylaxis: Status: Acute Assessment and plan: Kalina (12) Discharge planning issues: Status: Acute Assessment and plan: DNR/DNI. Anticipate discharge home on hospice; pending official hospice consult Subjective Subjective Interval history since last seen: Milagro is resting comfortably when I came to examine her. She does wake up when I call her name, but then promptly falls asleep and does not answer my questions. Continues to have diarrhea. C.Diff +. Exam Narrative Exam Narrative: General: Elderly female who is resting comfortably, on 2L of O2 by NC, arousable to verbal stimuli, but promptly falls back asleep HEENT: EOMI, MMM Heart: RRR Lungs: Diminished breath sounds B, slight abdominal breathing pattern Abdomen: soft, nontender, nondistended Extremities: no edema Objective Last Vital Signs Temp 36.3 C L 01/29/22 11:13 Pulse 60 01/29/22 13:03 Resp 24 01/29/22 13:03 BP 137/75 01/29/22 11:13 Pulse Ox 99 01/29/22 13:03 Laboratory Results - last 24 hr 01/28/22 01/29/22 01/29/22 17:30 09:00 09:00 WBC 13.97 H RBC 4.91 Hgb 14.1 Hct 44.1 MCV 90 MCH 28.7 MCHC 32.0 RDW 14.6 Plt Count 251 MPV 11.1 H Immature Gran % See Differential Neutrophils % 80.0 Band Neutrophils % 3 Lymphocytes % 2.0 Monocytes % 10.0 Eosinophils % 2.0 Basophils % 1.0 Metamyelocytes % 1 Myelocytes % 1 Nucleated RBC % 0.0 Absolute Neutrophils 11.60 H Absolute Lymphocytes 0.28 L Absolute Monocytes 1.40 H Absolute Eosinophils 0.28 Absolute Basophils 0.14 RBC Morphology Normal Sodium 139 Potassium 4.1 Chloride 104 Carbon Dioxide 28.4 Anion Gap 6.6 BUN 79 H Creatinine 2.4 H Est GFR (CKD-EPI 2020) 19.31 Glucose 120 H Calcium 8.9 Magnesium 2.9 H Stl C.difficile Tox PCR Positive A
[2022-01-29] MEDS: Atorvastatin 20 MG TAB PO (22:15)
[2022-01-29] MEDS: HYDROmorphone 2 MG/ML SYR 0.5 MG IVP (22:30)
[2022-01-30] VITALS (11 sets, daily range): BP systolic 134–171; BP diastolic 62–81; PULSE 48–88; RESP 5–18; TEMP 35.8–37.2; O2SAT 93–97
[2022-01-30] MEDS: Ondansetron 4 MG/2 ML VIAL IVP (00:47)
[2022-01-30] MEDS: metroNIDAZOLE 500 MG/100 ML BAG 100 MG IVPB ×3 (00:48→17:38)
[2022-01-30] MEDS: Albuterol/Ipratropium 3 ML UPD VIAL UPD ×4 (06:42→23:20)
[2022-01-30] MEDS: Metoprolol 12.5 MG TAB PO ×3 (06:42→21:41)
[2022-01-30] MEDS: Apixaban 2.5 MG TAB PO ×2 (07:41→21:38)
[2022-01-30] MEDS: Nystatin CREAM 30 GM TUBE TP ×2 (07:41→20:41)
[2022-01-30] MEDS: Clotrimazole 1% 15 GM TUBE TP ×2 (07:41→21:38)
[2022-01-30] MEDS: Ascorbic Acid 500 MG TAB PO (07:41)
[2022-01-30] MEDS: Normal Saline Flush 10 ML SYR IVP (07:45)
[2022-01-30] MEDS: Pantoprazole 40 MG VIAL IVP (07:45)
[2022-01-30] MEDS: methylPREDNISolone SUCC 40 MG VIAL IVP (07:45)
[2022-01-30] MEDS: Cholestyramine/Aspartame PKT 1 EACH PO ×2 (09:40→20:00)
[2022-01-30 12:17] LABS: Abs Immature Grans 1.16 10^3/uL (0.0-0.06); HCT 45.4 % (36.0-46.0); HGB 14.3 g/dL (11.2-15.7); MCH 28.9 pg (27.0-33.0); MCHC 31.5 % (32.0-36.0); MCV 92 fL (80-95); MPV 10.7 fL (8.0-11.0); RBC 4.94 10^6/uL (3.93-5.22); RDW 14.8 % (11.7-14.6); RDW-SD 49.8 fL; WBC 14.62 10^3/uL (4.4-10.8)
[2022-01-30 12:30] LABS: Anion Gap 7.8 mmol/L (3-11); BUN 73 mg/dL (7-18); CO2 27.2 mmol/L (21.0-32.0); CREATININE 2.1 mg/dL (0.55-1.02); Calcium 8.5 mg/dL (8.5-10.1); Chloride 107 mmol/L (98-107); Estimated GFR 22.66 (mL/min/1.73m2); Glucose 174 mg/dL (74-106); Magnesium 2.7 mg/dL (1.8-2.4); Potassium 3.8 mmol/L (3.5-5.1); Sodium 142 mmol/L (136-145)
[2022-01-30 13:16] LABS: Absolute Basophil Count 0.15 10^3/uL (0.0-0.2); Absolute Eosinophil Count 0.29 10^3/uL (0.0-0.7); Absolute Lymphocyte Count 0.44 10^3/uL (1.2-3.4); Absolute Monocyte Count 1.32 10^3/uL (0.1-0.8); Absolute Neutrophil Count 12.13 10^3/uL (1.2-6.7); Atypical Lymphocytes % 1; Bands % 2; Diff Comment Manual Differential; Metamyelocytes % 1; Myelocytes % 1; Platelet Count 214 10^3/uL (130-400); RBC Morphology Normal
--- NOTE | 2022-01-30 17:03 | PGE_ITS ---
Date of Service Date of service: 01/30/22 Time of Service: 17:04 Assessment and Plan Assessment and plan (1) C. difficile colitis: Status: Acute Assessment and plan: Continue IV flayl + PO vanco, probiotics and questran. Monitor for resolution of diarrhea. (2) Ventricular tachycardia, polymorphic: Status: Acute Assessment and plan: In a patient w/ h/o prolonged QT, s/p pacemaker, ?ACS on this admission, respiratory failure. The patient chose not to have her device upgraded and not to be transferred to [facility] for a cardiac intervention. Home hospice is currently being considered. Will await further disposition planning. (3) Acute on chronic respiratory failure with hypoxia and hypercapnia: Status: Acute Assessment and plan: Due to a combination of COPD exacerbation in setting of Influenza A and acute on chronic systolic CHF w/ LVEF of 46%. Continue scheduled + prn nebs, abx, steroids. Await diposition planning. Off of BiPAP. Will continue to provide supplemental Oxygen via NC. (4) Influenza: Status: Resolved Assessment and plan: Finished treatment w/ Tamiflu (5) NSTEMI (non-ST elevated myocardial infarction): Status: Acute Assessment and plan: Likely type 2 NSTEMI rather than a true ACS. There is no strong evidence that this is ACS. Continue Eliquis 2.5mg BID. Patient decided against transfer for an evaluation for a cardiac intervention. (6) COPD exacerbation: Status: Acute Assessment and plan: As above (7) CHF (congestive heart failure): Status: Chronic Assessment and plan: As above Currently euvolemic. Qualifiers: Heart failure type: systolic Heart failure chronicity: acute on chronic Qualified Code(s): I50.23 - Acute on chronic systolic (congestive) heart failure (8) Atrial fibrillation: Status: Acute Assessment and plan: Rate controlled, chronic, on metoprolol. Continue metoprolol and eliquis. (9) UTI (urinary tract infection): Status: Resolved Assessment and plan: Likely treated. UA not strongly positive. Urine C&S 01/27 NGTD. Given C.diff, ceftriaxone d/'adelso. (10) Acute kidney injury superimposed on chronic kidney disease: Status: Acute Assessment and plan: Improved w/ IV hydration. IVF d/c'ed. Continue to hold diuretics Monitor Cr. Avoid nephrotoxic drugs. (11) DVT prophylaxis: Status: Acute Assessment and plan: Kalina (12) Discharge planning issues: Status: Acute Assessment and plan: DNR/DNI. Anticipate discharge home on hospice; pending official hospice consult Subjective Subjective Interval history since last seen: Ms Torres states that she would like to move and sit in the chair. She denies pain, dizziness, chest discomfort, shortness of breath, nausea. She requests different music. Exam Narrative Exam Narrative: General: Elderly female who is sitting up in bed, A&Ox1, on 2L of O2 by NC HEENT: EOMI, MMM Heart: RRR Lungs: Diminished breath sounds B Abdomen: soft, nontender, nondistended Extremities: no edema Objective Last Vital Signs Temp 36.6 C 01/30/22 15:40 Pulse 58 L 01/30/22 15:40 Resp 18 01/30/22 15:40 BP 171/80 H 01/30/22 15:40 Pulse Ox 94 01/30/22 15:40 Laboratory Results - last 24 hr 01/30/22 01/30/22 05:35 12:10 WBC 14.62 H RBC 4.94 Hgb 14.3 Hct 45.4 MCV 92 MCH 28.9 MCHC 31.5 L RDW 14.8 H Plt Count 214 MPV 10.7 Immature Gran % See Differential Neutrophils % 81.0 Band Neutrophils % 2 Lymphocytes % 2.0 Atypical Lymphs % 1 Monocytes % 9.0 Eosinophils % 2.0 Basophils % 1.0 Metamyelocytes % 1 Myelocytes % 1 Nucleated RBC % 0.0 Absolute Neutrophils 12.13 H Absolute Lymphocytes 0.44 L Absolute Monocytes 1.32 H Absolute Eosinophils 0.29 Absolute Basophils 0.15 RBC Morphology Normal Sodium 142 Potassium 3.8 Chloride 107 Carbon Dioxide 27.2 Anion Gap 7.8 BUN 73 H Creatinine 2.1 H Est GFR (CKD-EPI 2020) 22.66 Glucose 174 H Calcium 8.5 Magnesium 2.7 H
[2022-01-30] MEDS: Atorvastatin 20 MG TAB PO (21:38)
[2022-01-30] MEDS: HYDROmorphone 2 MG/ML SYR 0.5 MG IVP (21:40)
[2022-01-31] VITALS (8 sets, daily range): BP systolic 109–155; BP diastolic 60–73; PULSE 58–86; RESP 5–22; TEMP 36.4–37.3; O2SAT 92–98
[2022-01-31] MEDS: Normal Saline Flush 10 ML SYR IVP ×3 (02:42→09:09)
[2022-01-31] MEDS: metroNIDAZOLE 500 MG/100 ML BAG 100 MG IVPB ×3 (02:43→17:26)
[2022-01-31] MEDS: HYDROmorphone 2 MG/ML SYR 0.5 MG IVP (03:55)
[2022-01-31] MEDS: Albuterol/Ipratropium 3 ML UPD VIAL UPD ×2 (05:11→11:45)
[2022-01-31] MEDS: Metoprolol 12.5 MG TAB PO ×3 (05:11→19:36)
[2022-01-31] MEDS: methylPREDNISolone SUCC 40 MG VIAL IVP (09:07)
[2022-01-31] MEDS: Pantoprazole 40 MG VIAL IVP (09:08)
[2022-01-31] MEDS: Ascorbic Acid 500 MG TAB PO (09:09)
[2022-01-31] MEDS: Apixaban 2.5 MG TAB PO ×2 (09:09→19:38)
[2022-01-31] MEDS: Nystatin CREAM 30 GM TUBE TP ×2 (09:10→19:35)
[2022-01-31] MEDS: Clotrimazole 1% 15 GM TUBE TP ×2 (09:10→19:37)
[2022-01-31] MEDS: Cholestyramine/Aspartame PKT 1 EACH PO ×2 (11:18→17:26)
--- NOTE | 2022-01-31 12:28 | PTTR_ITS ---
Date of service: 01/31/22 Time of Service: 09:46 PT Notes Visit Reasons: NSTEMI, CHF Exacerbation,Flu A, COPD Exacerbation, Inpatient Physical Therapy Treatment Note [facility] Date: 01/31/2022 PRECAUTIONS: Fall, activity as tolerated, Influenza, confusion SUBJECTIVE: Milagro is agreeable to getting up and transferring to the chair. OBJECTIVE: PAIN: No c/o pain BED MOBILITY/TRANSFERS Supine-sit: Min A x2 Sit-stand: Max A x2 Stand-sit: Max A x2 Bed-chair: Max A x2 GAIT Assistive Device: MUD CLEANER OPERATOR x2 Weight bearing: Full Assist: Max A x2 Distance: Stand-pivot transfer [id number] Deviation: Severe B LE weakness, cueing for sequence and technique THEREX: Perform PROM to B LE into ankle pump, LAQ, hip flexion and hip abduction ASSESSMENT: Patient appears limited due to confusion and weakness. She requires Max A x2 for all transfers today, although demonstrates improved bed mobility. She is unable to ambulate at this time. PLAN: Continue with transfer training and global strengthening for improved mobility. TREATMENT CODE/TIME: 21 minutes; 05162 (09:46)
[2022-01-31] MEDS: LORazepam 2 MG/ML VIAL 0.5 MG IV (17:26)
--- NOTE | 2022-01-31 18:32 | W.PM.PROGNOT ---
Date of Service Date of service: 01/31/22 Time of Service: 18:32 Assessment and Plan Assessment and plan (1) C. difficile colitis: Status: Acute Assessment and plan: Continue IV flagyl + PO vanco, probiotics and questran. Monitor for resolution of diarrhea. (2) Ventricular tachycardia, polymorphic: Status: Acute Assessment and plan: In a patient w/ h/o prolonged QT, s/p pacemaker, ?ACS on this admission, respiratory failure. The patient chose not to have her device upgraded and not to be transferred to [facility] [place] [facility] for a cardiac intervention. Home hospice is currently being considered. Will await further disposition planning. (3) Acute on chronic respiratory failure with hypoxia and hypercapnia: Status: Acute Assessment and plan: Due to a combination of COPD exacerbation in setting of Influenza A and acute on chronic systolic CHF w/ LVEF of 46%. Continue scheduled + prn nebs, abx, steroids. Await diposition planning. Continue Oxygen via NC. (4) Influenza: Status: Resolved Assessment and plan: Tamiflu course complete (5) NSTEMI (non-ST elevated myocardial infarction): Status: Acute Assessment and plan: Likely type 2 NSTEMI rather than a true ACS. There is no strong evidence that this is ACS. Continue Eliquis 2.5mg BID. Patient decided against transfer for an evaluation for a cardiac intervention. (6) COPD exacerbation: Status: Acute Assessment and plan: As above (7) CHF (congestive heart failure): Status: Chronic Assessment and plan: As above Currently euvolemic. Qualifiers: Heart failure type: systolic Heart failure chronicity: acute on chronic Qualified Code(s): I50.23 - Acute on chronic systolic (congestive) heart failure (8) Atrial fibrillation: Status: Acute Assessment and plan: Rate controlled, chronic, on metoprolol. Continue metoprolol and eliquis. (9) UTI (urinary tract infection): Status: Resolved Assessment and plan: Likely treated. UA not strongly positive. Urine C&S 01/27 NG With C.diff, ceftriaxone was already d/'adelso. (10) Acute kidney injury superimposed on chronic kidney disease: Status: Acute Assessment and plan: Improved w/ IV hydration. IVF was d/c'ed. Continue to hold diuretics Monitor Cr. Today - 2.1 Avoid nephrotoxic drugs. (11) DVT prophylaxis: Status: Acute Assessment and plan: Eliquis (12) Discharge planning issues: Status: Acute Assessment and plan: DNR/DNI. Anticipate discharge home on hospice; pending official hospice consult which we anticipate will occur 02/[address] De La Garza Subjective Subjective Patient reports: no new complaints, tolerating liquids well, tolerating a regular diet and afebrile; denies diarrhea or vomiting Exam Narrative Exam Narrative: General: Elderly female who is sitting up in bed, A&Ox1, on 2L of O2 by NC HEENT: EOMI, MMM Heart: RRR Lungs: Diminished breath sounds B Abdomen: soft, nontender, nondistended Extremities: no edema Objective Last Vital Signs Temp 36.4 C L 01/31/22 15:05 Pulse 60 01/31/22 15:05 Resp 16 01/31/22 15:05 BP 109/71 01/31/22 15:05 Pulse Ox 92 01/31/22 15:05
[2022-01-31] MEDS: Atorvastatin 20 MG TAB PO (19:38)
[2022-02-01] VITALS (9 sets, daily range): BP systolic 155–194; BP diastolic 68–82; PULSE 58–63; RESP 1–24; TEMP 36.9; O2SAT 97–100
[2022-02-01] MEDS: HYDROmorphone 2 MG/ML SYR 0.5 MG IVP ×2 (00:10→03:41)
[2022-02-01] MEDS: Albuterol/Ipratropium 3 ML UPD VIAL UPD ×3 (00:20→13:40)
[2022-02-01] MEDS: metroNIDAZOLE 500 MG/100 ML BAG 100 MG IVPB ×2 (02:21→09:16)
[2022-02-01] MEDS: Normal Saline Flush 10 ML SYR IVP ×2 (03:44→08:03)
[2022-02-01] MEDS: Metoprolol 12.5 MG TAB PO ×2 (06:12→13:35)
--- NOTE | 2022-02-01 07:34 | W.PALPGNOTE ---
Date of service: 02/01/22 Time of Service: 07:34 Assessment and Plan Assessment and plan (1) C. difficile colitis: Status: Acute (2) Ventricular tachycardia, polymorphic: Status: Acute (3) Acute on chronic respiratory failure with hypoxia and hypercapnia: Status: Acute (4) Counseling regarding advanced care planning and goals of care: Status: Acute Assessment and plan: C. difficile?she is on both oral and IV. Hopefully she can transfer to just oral so that this will allow her to go home. She is already improving. She has declined to go to a tertiary [facility] for EP study She continues to be weak and is a two-person assist. There are 4 people in the home that can help with assist although many times only 1 person will be there. Hospice consult today. In keeping with the patient's wishes going home and having comfort care is the most reasonable. I have spoken to her daughter, Beatriz. She has the home ready for her mom to come home Subjective Subjective Interval history since last seen: Milagro has remained in the hospital over the weekend. She does have an appointment today with hospice. Plan when I left on was that she would transition to over the next few days and hopefully go home on hospice. She has developed C. difficile. Per nursing today the stools are decreasing and are more formed. She continues to be a two-person assist. Staff stated that she stated many times over the weekend that what she wants to do is to go home Exam Narrative Exam Narrative: She is sleepy but arousable. Her heart is rate controlled. Lungs small breaths. Her abdomen is not tense with good bowel sounds. She does have a patch on her left upper arm that looks like it was probably a skin tear. She has a Jiménez in place. She is cooperative Objective Last Vital Signs Temp 98.4 F 02/01/22 03:27 Pulse 58 L 02/01/22 03:27 Resp 20 02/01/22 03:27 BP 155/68 H 02/01/22 03:27 Pulse Ox 97 02/01/22 03:57
[2022-02-01 07:58] LABS: Abs Immature Grans 1.45 10^3/uL (0.0-0.06); Absolute Basophil Count 0.19 10^3/uL (0.0-0.2); Absolute Lymphocyte Count 0.75 10^3/uL (1.2-3.4); Basophils % 0.9; HCT 43.1 % (36.0-46.0); HGB 13.6 g/dL (11.2-15.7); Immature Grans % 6.8; Lymphocytes % 3.5; MCH 28.8 pg (27.0-33.0); MCHC 31.6 % (32.0-36.0); MCV 91 fL (80-95); MPV 10.7 fL (8.0-11.0); Monocytes % 5.6; Neutrophils % 83.2; Platelet Count 207 10^3/uL (130-400); RBC 4.72 10^6/uL (3.93-5.22); RDW 14.6 % (11.7-14.6); RDW-SD 49.7 fL; WBC 21.36 10^3/uL (4.4-10.8)
[2022-02-01] MEDS: Pantoprazole 40 MG VIAL IVP (08:04)
[2022-02-01] MEDS: methylPREDNISolone SUCC 40 MG VIAL IVP (08:04)
[2022-02-01 08:05] LABS: Absolute Neutrophil Count 17.77 10^3/uL (1.2-6.7)
[2022-02-01] MEDS: Apixaban 2.5 MG TAB PO (08:07)
[2022-02-01] MEDS: Clotrimazole 1% 15 GM TUBE TP (08:07)
[2022-02-01] MEDS: Nystatin CREAM 30 GM TUBE TP (08:07)
[2022-02-01] MEDS: Ascorbic Acid 500 MG TAB PO (08:07)
[2022-02-01 08:14] LABS: Diff Comment Diff Reviewed; RBC Morphology Normal
[2022-02-01 08:17] LABS: Anion Gap 8.3 mmol/L (3-11); BUN 59 mg/dL (7-18); CO2 25.7 mmol/L (21.0-32.0); CREATININE 1.9 mg/dL (0.55-1.02); Calcium 8.6 mg/dL (8.5-10.1); Chloride 106 mmol/L (98-107); Estimated GFR 25.56 (mL/min/1.73m2); Glucose 114 mg/dL (74-106); Magnesium 2.5 mg/dL (1.8-2.4); Potassium 3.5 mmol/L (3.5-5.1); Sodium 140 mmol/L (136-145)
[2022-02-01] MEDS: Cholestyramine/Aspartame PKT 1 EACH PO (09:16)
--- NOTE | 2022-02-01 11:04 | PDOC.CMPRO ---
- If Service Date Differs Date of service: 02/01/22 Time of Service: 11:04 Care Management Progress Note S/O: Milagro is sleeping and appears comfortable when CM attempted to meet with her. She is being closely monitored and treated. Per RN, Milagro was restless this morning and required ativan. Milagro and Beatriz plan to meet with Ally from Hospice in the next few days, however Beatriz shares that she works for [employer] and is unsure when she will be available next and will call CM when she gets a better idea of her schedule. Milagro will need a hospital bed on discharge, Beatriz is aware that Hospice would be able to help with DME needs. CM will continue to follow. A: 86 year old female admitted to [facility] on 01/21/22 for NSTEMI, CHF Exacerbation, Flu A, COPD Exacerbation. P: Per Palliative provider, Milagro was very clear that she wanted to go home when medically able. Milagro will discharge home with 24/7 caregiver support from family with [facility] vs. Hospice services. She will transport via private vehicle vs. EMS (depending on mobility). CM will continue to follow.
--- NOTE | 2022-02-01 15:06 | PT.INTREAT ---
Date of service: 02/01/22 Time of Service: 14:40 PT Notes Visit Reasons: NSTEMI, CHF Exacerbation,Flu A, COPD Exacerbation, Inpatient Physical Therapy Treatment Note [facility] Date: 02/01/2022 PRECAUTIONS: Fall, activity as tolerated, Influenza, confusion SUBJECTIVE: Milagro is agreeable to getting up and transferring to the chair. OBJECTIVE: PAIN: No c/o pain BED MOBILITY/TRANSFERS Sit-supine: Max A x2 Sit-stand: Max A x2 Stand-sit: Max A x2 Chair-bed: Max A x3 GAIT Assistive Device: CALENDER TENDER x2 Weight bearing: Full Assist: Max A x3 Distance: Stand-pivot transfer [id number] Deviation: Severe B LE weakness, cueing for sequence and technique TOILETING: Patient toileted with assist ASSESSMENT: Patient appears limited due to confusion and weakness. She requires Max A x2-3 for all transfers today. She is unable to ambulate at this time. PLAN: Patient to discharge to home later today on hospice, per provider. TREATMENT CODE/TIME: 15 minutes; 54392 (14:40)
--- NOTE | 2022-02-01 15:26 | CMDISCH_ITS ---
- If Service Date Differs Date of service: 02/01/22 Time of Service: 15:26 LACE Index Scoring Tool - Questions: Length of Stay (in days): 7 - 13 Acuity (Admit via E.D.?): Yes Comorbidities: Congestive Heart Failure, Chronic Pulmonary Disease E.D. Visits: 4 - Answers: Total Score: 17 Risk of Readmission: High Risk Care Management Discharge Reason for Hospitalization: NSTEMI, CHF Exacerbation, Flu A, COPD Exacerbation. Discharge Plan: Milagro will discharge home with multimedia authoring specialist support from her family and planned hospice admission for tomorrow. CM notified Hospice of discharge planning, confirmed prescriptions with [facility] and coordinated [facility] transport. Patient/Family Education Needs: Review discharge instructions, discuss Ask Me Three. Services Needed at Discharge: Home Health Care Services (Hospice), Transportation ([facility])
--- NOTE | 2022-02-01 18:45 | DSE_ITS ---
Date of service: 02/01/22 Time of Service: 18:46 DS: Diagnosis Discharge Diagnosis (1) C. difficile colitis: Status: Acute (2) Ventricular tachycardia, polymorphic: Status: Acute (3) Acute on chronic respiratory failure with hypoxia and hypercapnia: Status: Acute (4) Counseling regarding advanced care planning and goals of care: Status: Acute Discharge Plan Disposition Patient Disposition: Home W/Hospice Services Condition: Deteriorating Discharge Details Reason For Visit: NSTEMI, CHF Exacerbation,Flu A, COPD Exacerbation, Admit Date/Time: 01/21/22 19:29 Admit Provider: Sebastian Morgan Attending Provider: Emmy De La Garza Primary Care Provider: Aman Granado Hospital Course Hospital Course: This is an 86-year-old female patient with history of chronic atrial fibrillation and pacemaker in place without defibrillator who presented to the [facility] emergency department 01/22/2022 with a syncopal episode which occured 2 days prior to this presentation.? She was treated with IV hydration as well as initiating cefpodoxime for UTI.? At home the patient did not have any further syncopal episodes but reported becoming more short of breath.? She lives with her daughter.? The patient was called by the bullet assembly press operator at [facility] that her pacemaker did show a 37-second pause but further investigations revealed that she did have a run of polymorphic VT.? She was advised to go to the ED for evaluation and possible transfer for interventions.? Patient was not necessarily more short of breath to prompt her ED visit but in the ED was extremely short of breath and tripoding?requiring BiPAP and becoming more agitated requiring Ativan.?Imaging evaluation did reveal mostly paced rhythm and her troponins were elevated with a non-STEMI and patient open to transfer for cardiac catheterization though she is a DNR/DNI and also approaching palliative care with multiorgan failure and disease. She was admitted to the ICU.? She appeared to be stable, with somerespiratory distress with COPD exacerbation which was treated aggressively. Patient also had a positive flu screening and was placed on Tamiflu.? The acute influenza infection may have been what prompted her res piratory decompensation. IV Solu-Medrol was initiated and patient did have BiPAP with oxygen support and nebulizers.? VBG did reveal hypercarbia with the patient also having hypoxemia upon presentation.? Her BNP was markedly elevated and it was thought that she may have heart failure exacerbated as well with diuretics given in the ED.? Patient is chronically on high-dose torsemide at home and IV L asix was continued with a Jiménez catheter placed to monitor fluids and for comfort. classroom monitor Afib/Aflutter ? V-paced.? Patient is a DNR/DNI.?She was going to be transferred to [facility] for EP evaluation and intervention if needed.? There were not beds at [facility]. She did have a palliative care consultation. She stated ?I am 86 years of age I had a really good life and I do not want all these complications declining transport.? She stated she wanted to go home.? Beatriz, patient?s daughter, and granddaughters stated that they would be able to bring Milagro home and supply 24-hour 7-day a week care.? Hospice was consulted.? She was discharged to home via EMS to be admitted to home hospice services. Discussed with Dr De La Garza Home Meds and New Rx's Prescriptions: New vancomycin 250 mg Capsule 250 mg PO Q6H Qty: 40 0RF lorazepam 0.5 mg tablet 0.5 mg PO TID PRNQty: 7 0RF morphine concentrate 100 mg/5 mL (20 mg/mL) solution 5 - 10 mg PO Q6H PRNQty: 15 0RF Continued ascorbic acid (vitamin C) [Vitamin C] 500 MG capsule, extended release 500 mg PO DAILY cranberry fruit 500 MG tablet,chewable 500 mg PO DAILY (DME) disposable gloves [Vinyl Gloves] 1 EACH misc 1 ea Topical PRN (DME) Aerochamber MV 1 EACH spacer 1 ea Miscellaneous DIRECTED torsemide 100 mg tablet 50 - 100 mg PO DAILY Label Comments: 04/13/20-PT STATES CURRENT DOSE IS 100MG DAILY, THEN 50MG DAILY, ALTERNATING EACH DAY--VIVIANA WOLFE Rx Instructions: alternate days with 1/2 tab and full tab bisacodyl [Dulcolax (bisacodyl)] 10 mg suppository 10 mg OR DAILY PRN Jardiance 10 mg tablet 10 mg PO DAILY atorvastatin [Lipitor] 20 MG tablet 20 mg PO HS nitroglycerin [Nitrostat] 0.4 MG tablet, sublingual 1 tab Sublingual Q5MX3 PRN Label Comments: pt states she has not used in a while 11/13/15 vitamin E 400 UNIT capsule 400 unit PO DAILY potassium chloride [Klor-Con M10] 10 MEQ tablet,ER particles/crystals 10 meq PO DAILY mometasone 50 mcg/actuation [place],Non-Aerosol 1 spray INTRANASAL DAILY albuterol sulfate [ProAir HFA] 90 mcg/actuation Hfa Aerosol Inhaler 2 puff INHALATION Q4H PRN clotrimazole 1 % Cream 1 applic TOPICAL BID ipratropium-albuterol 0.5 mg-3 mg(2.5 mg base)/3 mL solution for nebulization 3 ml INHALATION TID Label Comments: INHALE THE CONTENTS OF ONE VIAL VIA NEBULIZER THREE TIMES A DAY Entresto 49-51 mg tablet 1 tab PO BID Label Comments: TAKE ONE TABLET BY MOUTH TWICE A DAY metoprolol succinate [Toprol XL] 50 mg tablet extended release 24 hr 75 mg PO DAILY nystatin 15 GM cream 1 applic Topical BID acetaminophen [Tylenol] 325 MG tablet 650 mg PO BID PRN Label Comments: 05/01/17 taking 1000 mg Twice a day. ERIC Advair HFA 115-21 mcg/actuation Hfa Aerosol Inhaler 2 puff INHALATION BID Changed Eliquis 5 MG tablet 2.5 mg PO BID Qty: 0 0RF Discontinued cefpodoxime 100 mg tablet 100 mg PO BID 7 Days Qty: 14 0RF Rx Instructions: must administer with a meal/food Discharge Instructions Instructions: Vancomycin (By mouth), Hospice Care (GEN), Jiménez Catheter Placement and Care (DC), C. Diff (Clostridioides Difficile) Infection (DC), How to Change a Catheter Drainage Bag (DC) Additional Instructions: Someone from [facility] will call you and let you know when a nurse is coming to admit you to their services. Stand Alone Forms: Nursing Discharge Form Activity:: Activity as Tolerated Equipment/Supplies:: Walker Diet:: As Tolerated Discharge Orders Discharge Orders: Discharge Order (Routine); Ordered 02/01/22 Ordered By: Geovanna Mendiola Discharge Data Discharge Date/Time-TO BE ENTERED AT DEPARTURE: 02/01/22 16:07 DS: Summary Time Spent with Patient providing and/or coordinating discharge services: Greater than 30 minutes Status at Discharge Functional status at discharge: bed bound Overall status at discharge: patient is not back to baseline Mental Status: other Speech and Movement: delayed speech and slowed movement Mood: anxious mood and other Affect: blunted Exam Narrative Exam Narrative: General: Elderly female who is sitting up in bed, A&Ox1, on 2L of O2 by NC HEENT: EOMI, MMM Heart: RRR Lungs: Diminished breath sounds B Abdomen: soft, nontender, nondistended Extremities: no edema Psych Mental Status: other Speech and Movement: delayed speech and slowed movement Mood: anxious mood and other Affect: blunted DS: Data Vitals/I&O Vitals and I&O: Vital Signs Temperature 36.9 C 02/01/22 11:30 Temperature Source Tympanic 02/01/22 11:30 Pulse 62 02/01/22 13:53 Pulse Rhythm Regular 02/01/22 07:15 Pulse 61 01/27/22 18:00 Respiratory Rate 24 02/01/22 13:53 Respiratory Effort Non-Labored 02/01/22 07:15 Respiratory Depth Normal 02/01/22 07:15 Respiratory Pattern Normal 02/01/22 07:15 Blood Pressure 185/80 H 02/01/22 11:30 Blood Pressure Mean 77 01/27/22 16:01 Blood Pressure Position Supine 01/27/22 15:15 Pulse Oximetry 100 02/01/22 13:53 Oxygen Delivery Method Nasal Cannula 02/01/22 13:40 Oxygen Flow Rate 2 02/01/22 13:40 Fraction of Inspired Oxygen (FIO2) 97 01/30/22 22:11 Pain Level 0 02/01/22 11:30 Comment 01/30/22 15:40 Intake & Output 01/31/22 02/01/22 02/01/22 23:59 11:59 23:59 Intake Total 400 / 1100 290 / 530 240 / 530 Output Total 100 / 625 300 / 300 Balance 300 / 475 -10 / 230 240 / 230 Weight 80.7 kg Intake: IV 200 / 300 110 / 110 Oral 200 / 800 180 / 420 240 / 420 Output: Urine 100 / 625 300 / 300 Other: Urine Color Light Sandhya Dark Sandhya Urine Appearance Clear Clear Stool Size Moderate Small Stool Characteristics Soft Soft Data Completed and Pending Labs on day of discharge: Labs from last 24 hours 02/01/22 02/01/22 07:30 07:30 WBC 21.36 H RBC 4.72 Hgb 13.6 Hct 43.1 MCV 91 MCH 28.8 MCHC 31.6 L RDW 14.6 Plt Count 207 MPV 10.7 Immature Gran % 6.8 Neutrophils % 83.2 Lymphocytes % 3.5 Monocytes % 5.6 Eosinophils % 0.0 Basophils % 0.9 Nucleated RBC % 0.0 Absolute Neutrophils 17.77 H Absolute Lymphocytes 0.75 L Absolute Monocytes 1.20 H Absolute Eosinophils 0.00 Absolute Basophils 0.19 RBC Morphology Normal Sodium 140 Potassium 3.5 Chloride 106 Carbon Dioxide 25.7 Anion Gap 8.3 BUN 59 H Creatinine 1.9 H Est GFR (CKD-EPI 2020) 25.56 Glucose 114 H Calcium 8.6 Magnesium 2.5 H PFSH All Active Problems (Updated 01/29/22 @ 13:50 by Emmy De La Garza MD) C. difficile colitis (Acute) Counseling regarding advanced care planning and goals of care (Acute) Ventricular tachycardia, polymorphic (Acute) Discharge planning issues (Acute) DVT prophylaxis (Acute) Acute on chronic respiratory failure with hypoxia and hypercapnia (Acute) Acute kidney injury superimposed on chronic kidney disease (Acute) JARRETT (acute kidney injury) (Acute) NSTEMI (non-ST elevated myocardial infarction) (Acute) CKD (chronic kidney disease) (Chronic) Cellulitis of right lower extremity (Acute) Atrial fibrillation (Acute) COPD (chronic obstructive pulmonary disease) (Chronic) CHF (congestive heart failure) (Chronic) Primary osteoarthritis of right knee (Acute 05/01/17) Steroid injection: 10/25/21; 04/12/21; 07/13/2020; 04/13/2020; 11/29/18; 06/25/2018; 05/01/17; 11/02/16; 04/04/16 ZILRETTA: 07/19/21 Primary osteoarthritis of left knee (Acute 08/13/15) Steroid injection: 10/25/21; 04/12/21; 04/13/2020; 11/29/18; 06/25/2018; 12/27/17; 08/21/17; 05/01/17; 11/02/16; 04/04/16; 08/13/15 Synvisc injection: 07/13/2020; 11/01/17 ZILRETTA: 07/19/21 Generalized weakness (Acute) Dehydration (Acute) Hyperglycemia (Acute) Chest pain (Acute) COPD exacerbation (Acute) Hypokalemia (Acute) Constipation (Acute) Social History Smoking/Tobacco Use Status: Former Tobacco Use Smoking risk assessment performed?: Yes Alcohol Intake: current Alcohol Intake frequency: holidays/special occasions only Alcohol type: beer Drug use: Never Substance use type: does not use Current gender identity: female Do you feel safe at home: Yes Do you feel safe in your relationship?: Yes History History Para 2 Hx # Term Pregnancies Multiple births Hx # Pregnancies Ectopic pregnancies AB induced Hx Number of Living Children AB spontaneous
--- NOTE | 2022-02-02 17:00 | PT.INDS ---
Date of service: 02/02/22 Time of Service: 17:00 PT Notes Visit Reasons: NSTEMI, CHF Exacerbation,Flu A, COPD Exacerbation, Physical Therapy Inpatient Discharge Summary Date: 02/02/2022 Dates of Service: 01/28/2022 through 02/01/2022 This is a clinical summary of care provided for the duration of dates listed above. No charge was made in the completion of this documentation. Referring Doctor: Pedrito Escobar MD PT Orders: PT CONSULT: Eval/treat Precautions: Fall. Standard. Activity as tolerated. Patient Profile/Admitting Diagnosis:? Milagro is an 86-year-old female with past medical history significant for atrial fibrillation with pacemaker in place (without defibrillator) who presented to the ED on 01/21/2022 due to increasing shortness of breath and a syncopal episode that happened 2 days prior to admission.? Patient is diagnosed with influenza a, acute on chronic respiratory failure with hypoxia and hypercapnia, acute on chronic kidney disease, NSTEMI, COPD exacerbation, CHF with EF of 46%, and a UTI.? Palliative care goals as of 01/27/2022 included patient going on hospice whenever medically ready with a goal of discharging from it when a possibility of regaining adequate strength for improved mobility performance to ensure safety of patient and family/caregivers at home. PMHX: All Active Problems? JARRETT (acute kidney injury) (Acute) NSTEMI (non-ST elevated myocardial infarction) (Acute) Influenza (Acute) CKD (chronic kidney disease) (Chronic) Cellulitis of right lower extremity (Acute) Atrial fibrillation (Acute) COPD (chronic obstructive pulmonary disease) (Chronic) CHF (congestive heart failure) (Chronic) Primary osteoarthritis of right knee (Acute 05/01/17) Steroid injection: 10/25/21; 04/12/21; 07/13/2020; 04/13/2020; 11/29/18; 06/25/2018; 05/01/17; 11/02/16; 04/04/16 ZILRETTA: 07/19/21Primary osteoarthritis of left knee (Acute 08/13/15) Steroid injection: 10/25/21; 04/12/21; 04/13/2020; 11/29/18; 06/25/2018; 12/27/17; 08/21/17; 05/01/17; 11/02/16; 04/04/16; 08/13/15 Synvisc injection: 07/13/2020; 11/01/17 ZILRETTA: 07/19/21UTI (urinary tract infection) (Acute) Generalized weakness (Acute) Dehydration (Acute) Hyperglycemia (Acute) Chest pain (Acute) COPD exacerbation (Acute) Hypokalemia (Acute) Constipation (Acute) Social History/Home Situation: Patient lives with daughter who is the main caregiver for patient.? She is no longer ambulatory but is able to transfer with assist of 1 person from bed to chair prior to admission.? Granddaughter Myranda corroborates this. Equipment Owned/DME: FWW.? Per xi Whitmore,? patient has all needed DME except for a hospital bed which is currently being processed Subjective: NT. See most recent TECHNICAL PROJECT COORDINATOR notes. Objective: General Observation: NT. See most recent TECHNICAL PROJECT COORDINATOR notes. Mental Status: NT. See most recent TECHNICAL PROJECT COORDINATOR notes. Pain: NT. See most recent TECHNICAL PROJECT COORDINATOR notes. Vital Signs: NT. See most recent TECHNICAL PROJECT COORDINATOR notes. ROM: Right Upper Extremity: ? Shoulder Flexion lacks the last 25% of available AROM. Shoulder abduction lacks the last 25% of available AROM. Elbow flexion WFL. Wrist flexion WFL. Functional opening and closing of hand WFL. Left Upper Extremity:? Shoulder Flexion lacks the last 50% of available AROM. Shoulder abduction lacks the last 50% of available AROM. Elbow flexion lacks the last 50% of available motion. Wrist flexion WFL. Functional opening and closing of hand WFL. Right Lower Extremity: Hip flexion lacks the last 75% of available AROM. Hip abduction lacks the last 75% of available AROM. Knee flexion lacks 50% of available motion. Ankle dorsiflexion to neutral only. Ankle plantarflexion WFL. Left Lower Extremity: Hip flexion lacks the last 50% of available AROM. Hip abduction lacks the last 50% of available AROM. Knee flexion lacks 25% of available motion. Ankle dorsiflexion to neutral only. Ankle plantarflexion WFL. Strength: Right Upper Extremity: Shoulder flexors 3-/5. Shoulder abductors 3-/5. Elbow flexors 4-/5. Elbow extensors 4-/5. Cardiology Nurse strong. Left Upper Extremity: Shoulder flexors 3-/5. Shoulder abductors 3-/5. Elbow flexors 4-/5. Elbow extensors 4-/5. Cardiology Nurse strong. Right Lower Extremity: Hip flexors 2-/5. Hip abductors 2-/5. Knee flexors 3-/5. Knee extensors 3-/5. Ankle dorsiflexors 3-/5. Ankle plantarflexors 4-/5. Left Lower Extremity: Hip flexors 3-/5. Hip abductors 3-/5. Knee flexors 3-/5. Knee extensors 3-/5. Ankle dorsiflexors 3-/5. Ankle plantarflexors 4-/5. BED MOBILITY/TRANSFERS? Sit-supine: Max A x2? Sit-stand: Max A x2? Stand-sit: Max A x2 ? Chair-bed: Max A x3 ? GAIT? Assistive Device: CINNAMON GRINDER x2? Weight bearing: Full Assist: Max A x3 ? Distance: Stand-pivot transfer [id number]? Deviation: Severe B LE weakness, cueing for sequence and technique Balance: Static Sitting: Good Dynamic Sitting: Fair Static Standing: Unable Dynamic Standing: Unable Special Tests: Mobility Limitations Standardized Measure [facility]-PAC 6 clicks Basic Mobility Inpatient Short Form: Raw Score: 6? CMS Score: 100% deficit? ? ? Assessment: Patient goes home today on hospice. Patient presents with clinical signs and symptoms consistent with current/admitting diagnoses that have resulted to mobility limitations, gait instability, generalized weakness, and overall ADL decline as demonstrated by the following impairment level findings: 1.? Decreased strength to B UE/LE major muscle groups 2.? Impaired sitting/standing balance 3.? Impaired activity tolerance 4.? Limitation of joint range of motion in B shoudlers and hips (chronic) 5.? Shortness of breath Impairments are contributing to the following functional limitations: 1.? Decline in bed mobility skills 2.? Decline in transfer skills 4.? Increased completion time for mobility ADL performance 5.? Increased risk for falls 6.? Difficulty with managing steps alone safely Patient is assessed as a 19449 moderate complexity based on the following: History: 86-year-old female with past medical history as indicated above Examination: Demonstrable impairment in strength, balance, and mobility level with underlying impairments and functional limitations as exhibited above as well as deficit score of 69% utilizing the [facility] Mobility Inpatient Short Form Presentation: Evolving Decision Makin moderate complexity Goals: Goals X1 week 1. Supine-Sit contact guard assist 2. Sit-Supine contact guard assist 3. Sit-Stand contact guard assist 4. Stand-Sit contact guard assist with FWW 5. Bed-Chair minimal assist with FWW 6. Chair-Bed minimal assist with FWW 7. Good static and dynamic sitting balance/tolerance 8. Fair static and dynamic standing balance/tolerance Plan of Care/Treatment Plan: 1x/day, 7 days/week x 1 week. Plan of care has been reviewed with the TECHNICAL PROJECT COORDINATOR providing the service under Physical Therapy direction. PT treatment focus:??B functional UE/LE strengthening as tolerated ? Increase sitting balance -- perform trunk rotation/lateral flexion reaching for objects side to side/up and down to tolerance ? Improve standing balance and tolerance--may use sit/stand machine or parallel bars ? Breathing exercises with chest expansion exercises ? DISCHARGE RECOMMENDATIONS: [] ? Home with no services [] [X] ? Home with services.? Home when medically stable and cleared by hospitalist.? Patient will benefit from home health PT services in order to progress mobility level using FWW, assess home safety, identify additional equipment needs, and establish a functional maintenance program that will increase ability of patient to remain at home with caregiver support. [] ? Home with outpatient PT [] [] ? SNF for continued rehabilitation [] [] ? [facility] Care [] [] ? SNF versus LTC based on ability to participate and progress [] TREATMENT CODE/TIME: NC Thank you for the opportunity to participate in the care of this patient. Anali Bowers PT, DPT, CLT [facility] [place], [place]
== END 2022-02-01 16:07 | disposition hospice, home (50) | DRG 280 ==
LOC: ER 20:10 → ICU 21:43 → MS 01-27 18:48
PROVIDERS: Family Medicine; General Practice; Nurse Practitioner Family; Admitting Provider Family Medicine; Emergency Provider Physician Assistant; PCP Internal Medicine; Visit Provider Internal Medicine
DX: I13.0 Hypertensive heart and chronic kidney disease with heart failure and stage 1 through stage 4 chronic kidney disease, or unspecified chronic kidney disease (principal); I21.A1 Myocardial infarction type 2; I50.23 Acute on chronic systolic (congestive) heart failure; J96.21 Acute and chronic respiratory failure with hypoxia; J96.22 Acute and chronic respiratory failure with hypercapnia; J44.1 Chronic obstructive pulmonary disease with (acute) exacerbation; I48.20 Chronic atrial fibrillation, unspecified; N39.0 Urinary tract infection, site not specified; N17.9 Acute kidney failure, unspecified; I47.29 Other ventricular tachycardia; A04.72 Enterocolitis due to Clostridium difficile, not specified as recurrent; J10.1 Influenza due to other identified influenza virus with other respiratory manifestations; Z66 Do not resuscitate; N18.9 Chronic kidney disease, unspecified; Z79.01 Long term (current) use of anticoagulants; Z95.0 Presence of cardiac pacemaker; E66.9 Obesity, unspecified; Z68.35 Body mass index [BMI] 35.0-35.9, adult; R53.1 Weakness; E86.0 Dehydration; E87.6 Hypokalemia; K59.00 Constipation, unspecified; R73.9 Hyperglycemia, unspecified; Z87.891 Personal history of nicotine dependence; M17.0 Bilateral primary osteoarthritis of knee; B96.20 Unspecified Escherichia coli [E. coli] as the cause of diseases classified elsewhere; I45.81 Long QT syndrome
CPT/HCPCS: 36415; 76770; 80048; 80053; 80061; 82805; 84145; 85027; 87493; 87637; 93005; 93306; 94640; 96374; 96375; 97162; 97530; 99233; 99285; 71045; 81003; 81015; 83735; 83880; 84443; 84484; 85025; 85730; 87086; 93010; 94660; 94667; 99223; 99232; 99239; 99291; J0696; J1170; J1940; J1941; J2060; J2270; J2405; J2930; J3490; J7613; J7620